=== PATIENT | female | born 1985 | race Two or more races ===

== ENCOUNTER → 2016-07-24 | Outpatient (CLI) | payer BC ==
[2016-07-24 11:05] LABS: Urine RBC None Seen /hpf (0 - 4)
[2016-07-24 11:46] LABS: Urine Bilirubin Negative (Negative); Urine Blood Negative /uL (Negative); Urine Color Yellow (Yellow); Urine Glucose Normal (Normal); Urine Ketone Negative (Negative); Urine Mucus FEW (None Seen); Urine Nitrite Negative (Negative); Urine Squamous Epithelial Cell FEW /hpf (<5); Urine Urobilinogen Normal (Negative); Urine pH 6.5 (5.0-8.0)
== END | disposition home or self-care (01) ==
LOC: LAB 10:52
DX: N39.0 Urinary tract infection, site not specified (principal)
CPT/HCPCS: 81001

== ENCOUNTER → 2016-08-22 | Outpatient (CLI) | payer BC | END | disposition home or self-care (01) | LOC: LAB 13:30 | DX: L50.9 Urticaria, unspecified (principal) | CPT/HCPCS: 86003 ==

== ENCOUNTER → 2016-09-12 | Outpatient (CLI) | payer BC ==
[2016-09-12 12:01] LABS: Basophils # (auto) 0 uL; Basophils % (auto) 0.4 % (0.0-2.0); Eosinophils # (auto) 0 uL; Eosinophils % (auto) 0.4 % (0.0-7.0); Hematocrit 39.3 % (36.0-46.0); Hemoglobin 13.4 g/dL (12.2-16.2); Lymphocytes % (auto) 30.5 % (10.0-50.0); Mean Corpuscular Hemoglobin 31.8 pg (28.0-32.0); Mean Corpuscular Volume 93.4 fL (80.0-100.0); Mean Platelet Volume 8.1 fL (7.4-10.4); Monocytes # (auto) 0.4 uL; Monocytes % (auto) 5.6 % (0.0-12.0); Neutrophils # (auto) 4.2 uL; Neutrophils % (auto) 63.1 % (37.0-80.0); Platelet Count (auto) 263 10^3/uL (140-450); Red Cell Distribution Width 13.2 % (11.6-16.0); White Blood Cell 6.6 10^3/uL (4.4-10.8)
[2016-09-12 12:21] LABS: Albumin 3.7 g/dL (3.4-5.0); BUN/Creatinine Ratio 19.4; Bilirubin, Total 0.3 mg/dL (0.2-1.0); Calcium 9.1 mg/dL (8.5-10.1); Magnesium 2.2 mg/dL (1.6-2.6); Potassium 4.1 mmol/L (3.5-5.1); Total Protein 7.6 g/dL (6.4-8.2)
[2016-09-12 12:28] LABS: Urine Bilirubin Negative (Negative); Urine Color Yellow (Yellow); Urine Glucose Normal (Normal); Urine Ketone Negative (Negative); Urine Mucus FEW (None Seen); Urine Nitrite Negative (Negative); Urine RBC 6 /hpf (0 - 4); Urine Squamous Epithelial Cell MOD /hpf (<5)
[2016-09-12 12:38] LABS: Urine Blood 1+ /uL (Negative)
== END | disposition home or self-care (01) ==
LOC: LAB 11:34
DX: R07.9 Chest pain, unspecified (principal)
CPT/HCPCS: 36415; 80053; 80061; 81001; 83735; 84443; 85025; 85652

== ENCOUNTER → 2016-10-02 | Outpatient (CLI) | payer BC | END | disposition home or self-care (01) | LOC: XYW 08:21 | PROVIDERS: ATTEND Internal Medicine Cardiovascular Disease | DX: R07.9 Chest pain, unspecified (principal) | CPT/HCPCS: 93306 ==

== ENCOUNTER → 2016-10-16 | Outpatient (CLI) | payer BC | END | disposition home or self-care (01) | LOC: XYW 08:34 | PROVIDERS: ATTEND Internal Medicine Cardiovascular Disease | DX: R07.89 Other chest pain (principal) | CPT/HCPCS: 93017; 93306 ==

== ENCOUNTER 2016-11-17 20:34 | Emergency (ER) | payer BC ==
[~2016-11-17] VITALS: Ht 165.1 cm; Wt 116.1 kg
[2016-11-17 20:51] VITALS: BP 144/88
== END 2016-11-17 23:11 | disposition home or self-care (01) ==
LOC: ER 20:39
DX: J40 Bronchitis, not specified as acute or chronic (principal)
CPT/HCPCS: 71010

== ENCOUNTER 2016-11-24 02:53 | Emergency (ER) | payer BC ==
[~2016-11-24] VITALS: Ht 165.1 cm; Wt 116.1 kg
[2016-11-24 03:51] LABS: Basophils # (auto) 0 uL; Basophils % (auto) 0.4 % (0.0-2.0); CONDITION Y; Eosinophils # (auto) 0.1 uL; Eosinophils % (auto) 1.1 % (0.0-7.0); Hematocrit 40.1 % (36.0-46.0); Hemoglobin 13.6 g/dL (12.2-16.2); Lymphocytes # (auto) 3.1 uL; Lymphocytes % (auto) 26.4 % (10.0-50.0); Mean Corpuscular Hemoglobin 32.4 pg (28.0-32.0); Mean Corpuscular Hgb Conc. 34.1 g/dL (32.0-36.0); Mean Corpuscular Volume 95.1 fL (80.0-100.0); Mean Platelet Volume 8.9 fL (7.4-10.4); Monocytes # (auto) 0.7 uL; Monocytes % (auto) 5.8 % (0.0-12.0); Neutrophils # (auto) 7.7 uL; Neutrophils % (auto) 66.3 % (37.0-80.0); Platelet Count (auto) 284 10^3/uL (140-450); Red Cell Distribution Width 13.9 % (11.6-16.0); White Blood Cell 11.6 10^3/uL (4.4-10.8)
[2016-11-24 03:59] LABS: Urine Bilirubin Negative (Negative); Urine Color Yellow (Yellow); Urine Glucose Normal (Normal); Urine Ketone Negative (Negative); Urine Mucus FEW (None Seen); Urine Nitrite Negative (Negative); Urine RBC 4 /hpf (0 - 4); Urine Squamous Epithelial Cell FEW /hpf (<5); Urine Urobilinogen Normal (Negative)
[2016-11-24 04:01] LABS: Urine Blood 1+ /uL (Negative)
[2016-11-24 04:08] LABS: INR 0.92 (0.9-1.15); Partial Thromboplastin Time 23.3 sec (22.64-33.71)
[2016-11-24 04:16] LABS: Albumin 3.6 g/dL (3.4-5.0); Calcium 8.5 mg/dL (8.5-10.1); Potassium 4.2 mmol/L (3.5-5.1)
[2016-11-24 04:18] LABS: BUN/Creatinine Ratio 18.3
[2016-11-24 04:21] LABS: Bilirubin, Total 0.3 mg/dL (0.2-1.0); Total Protein 7.7 g/dL (6.4-8.2)
[2016-11-24 05:40] VITALS: BP 105/47
== END 2016-11-24 05:43 | disposition home or self-care (01) ==
LOC: ER 02:54
DX: R55 Syncope and collapse (principal); T88.7XXA Unspecified adverse effect of drug or medicament, initial encounter; Y92.89 Other specified places as the place of occurrence of the external cause
CPT/HCPCS: 36415; 71101; 80053; 80307; 81001; 81025; 85025; 85610; 85730

== ENCOUNTER → 2016-12-02 | Outpatient (CLI) | payer BC ==
[2016-12-02 15:02] LABS: Basophils # (auto) 0 uL; Basophils % (auto) 0.6 % (0.0-2.0); CONDITION Y; Eosinophils # (auto) 0.1 uL; Eosinophils % (auto) 1.7 % (0.0-7.0); Hematocrit 37.5 % (36.0-46.0); Hemoglobin 12.7 g/dL (12.2-16.2); Lymphocytes # (auto) 1.8 uL; Mean Corpuscular Hemoglobin 32.1 pg (28.0-32.0); Mean Corpuscular Hgb Conc. 33.9 g/dL (32.0-36.0); Mean Corpuscular Volume 94.7 fL (80.0-100.0); Monocytes # (auto) 0.4 uL; Monocytes % (auto) 7.8 % (0.0-12.0); Neutrophils # (auto) 2.8 uL; Neutrophils % (auto) 54.9 % (37.0-80.0); Platelet Count (auto) 283 10^3/uL (140-450); Red Cell Distribution Width 13.7 % (11.6-16.0); White Blood Cell 5.2 10^3/uL (4.4-10.8)
[2016-12-02 15:25] LABS: Albumin 3.5 g/dL (3.4-5.0); BUN/Creatinine Ratio 21.1; Calcium 8.7 mg/dL (8.5-10.1); Potassium 4.1 mmol/L (3.5-5.1)
[2016-12-02 15:27] LABS: Bilirubin, Total 0.4 mg/dL (0.2-1.0); Total Protein 7.4 g/dL (6.4-8.2)
[2016-12-02 16:36] LABS: Temperature: 23.3 C (20.0-25.0)
[2016-12-02 17:04] LABS: Urine Bilirubin Negative (Negative); Urine Blood Negative /uL (Negative); Urine Color Yellow (Yellow); Urine Glucose Normal (Normal); Urine Ketone TRACE (Negative); Urine Mucus FEW (None Seen); Urine Nitrite Negative (Negative); Urine RBC 2 /hpf (0 - 4); Urine Squamous Epithelial Cell FEW /hpf (<5); Urine Urobilinogen Normal (Negative); Urine pH 6.5 (5.0-8.0)
== END | disposition home or self-care (01) ==
LOC: LAB 14:17
PROVIDERS: ATTEND Nurse Practitioner
DX: E78.5 Hyperlipidemia, unspecified (principal); F10.21 Alcohol dependence, in remission
CPT/HCPCS: 36415; 80053; 80061; 81001; 82306; 82607; 82728; 82746; 83036; 84443; 85025

== ENCOUNTER → 2017-05-15 | Outpatient (CLI) | payer BC ==
[2017-05-15 08:53] LABS: Leuteinizing Hormone 4.3 IU/L; Prolactin 34.3 ng/mL (2.8-29.2)
[2017-05-15 08:54] LABS: Follicle Stimulating Hormone 0.93 IU/L (SEE BELOW)
[2017-05-15 09:00] LABS: Beta HCG, Quantitative < 1 mlU/mL (1-3); Thyroid Stimulating Hormone 5.93 uIU/mL (0.358-3.74)
== END | disposition home or self-care (01) ==
LOC: LAB 07:06
DX: N92.6 Irregular menstruation, unspecified (principal)
CPT/HCPCS: 36415; 82626; 82670; 83001; 83002; 83525; 84146; 84443; 84702

== ENCOUNTER → 2018-06-25 | Outpatient (CLI) | payer BC, MEDICAID ==
[2018-06-25 15:02] LABS: Albumin 3.8 g/dL (3.4-5.0); Calcium 9.1 mg/dL (8.5-10.1); Potassium 4.2 mmol/L (3.5-5.1)
[2018-06-25 15:08] LABS: Urine Bacteria FEW /hpf (None Seen); Urine Blood 1+ /uL (Negative); Urine Mucus FEW (None Seen); Urine WBC 1 /hpf (0 - 5)
[2018-06-25 15:09] LABS: Folate (Folic Acid) 19.16 ng/mL (5.38-24)
[2018-06-25 15:12] LABS: BUN/Creatinine Ratio 15.8; Bilirubin, Total 0.4 mg/dL (0.2-1.0); CRP High Sensitivity 1.04 mg/dL (< 0.3); Total Protein 7.9 g/dL (6.4-8.2); Uric Acid 4.6 mg/dL (2.6-6.0)
[2018-06-25 17:58] LABS: Basophils # (auto) 0 uL; Basophils % (auto) 0.5 % (0.0-2.0); Eosinophils # (auto) 0.1 uL; Eosinophils % (auto) 0.8 % (0.0-7.0); Hemoglobin 13.7 g/dL (12.2-16.2); Lymphocytes # (auto) 2.6 uL; Lymphocytes % (auto) 35.2 % (10.0-50.0); Mean Corpuscular Hemoglobin 31.9 pg (28.0-32.0); Mean Corpuscular Hgb Conc. 33.5 g/dL (32.0-36.0); Mean Corpuscular Volume 95.4 fL (80.0-100.0); Monocytes # (auto) 0.5 uL; Monocytes % (auto) 6.9 % (0.0-12.0); Neutrophils # (auto) 4.2 uL; Neutrophils % (auto) 56.6 % (37.0-80.0); Platelet Count (auto) 213 10^3/uL (140-450); Red Cell Distribution Width 13.5 % (11.8-14.3); White Blood Cell 7.4 10^3/uL (4.4-10.8)
== END | disposition home or self-care (01) ==
LOC: LAB 14:24
PROVIDERS: ATTEND Nurse Practitioner
DX: E78.5 Hyperlipidemia, unspecified (principal); E55.9 Vitamin D deficiency, unspecified
CPT/HCPCS: 36415; 80053; 80061; 81001; 82306; 82607; 82746; 83036; 84443; 84550; 85025; 85652; 86141

== ENCOUNTER → 2018-09-29 | Outpatient (CLI) | payer BC, MEDICAID ==
[2018-09-29 08:38] LABS: Albumin 3.6 g/dL (3.4-5.0); Calcium 8.9 mg/dL (8.5-10.1)
[2018-09-29 08:43] LABS: BUN/Creatinine Ratio 21.1; Bilirubin, Total 0.5 mg/dL (0.2-1.0); Total Protein 7.3 g/dL (6.4-8.2)
[2018-09-29 08:45] LABS: Basophils # (auto) 0 uL; Basophils % (auto) 0.4 % (0.0-2.0); Eosinophils # (auto) 0.1 uL; Eosinophils % (auto) 1.2 % (0.0-7.0); Hematocrit 40.9 % (36.0-46.0); Hemoglobin 13.6 g/dL (12.2-16.2); Lymphocytes # (auto) 2.8 uL; Lymphocytes % (auto) 43.6 % (10.0-50.0); Mean Corpuscular Hemoglobin 31.7 pg (28.0-32.0); Mean Corpuscular Hgb Conc. 33.3 g/dL (32.0-36.0); Mean Corpuscular Volume 95.2 fL (80.0-100.0); Monocytes # (auto) 0.5 uL; Monocytes % (auto) 7.2 % (0.0-12.0); Neutrophils % (auto) 47.6 % (37.0-80.0); Nucleated Red Blood Cells % 0.1 %; Platelet Count (auto) 213 10^3/uL (140-450); Red Cell Distribution Width 13.2 % (11.8-14.3); White Blood Cell 6.4 10^3/uL (4.4-10.8)
[2018-09-29 10:05] LABS: Urine Bacteria NONE SEEN /hpf (None Seen); Urine Blood 1+ /uL (Negative); Urine Mucus FEW (None Seen); Urine WBC 3 /hpf (0 - 5)
== END | disposition home or self-care (01) ==
LOC: LAB 07:14
PROVIDERS: ATTEND Nurse Practitioner
DX: E78.5 Hyperlipidemia, unspecified (principal); E11.9 Type 2 diabetes mellitus without complications
CPT/HCPCS: 36415; 80053; 80061; 81001; 82043; 83036; 85025

== ENCOUNTER → 2019-02-03 | Outpatient (CLI) | payer BC, MEDICAID ==
[2019-02-03 07:46] LABS: Basophils # (auto) 0.1 uL; Basophils % (auto) 0.8 % (0.0-2.0); Eosinophils # (auto) 0.1 uL; Eosinophils % (auto) 0.9 % (0.0-7.0); Hematocrit 40.2 % (36.0-46.0); Hemoglobin 13.6 g/dL (12.2-16.2); Lymphocytes # (auto) 2.9 uL; Lymphocytes % (auto) 40.8 % (10.0-50.0); Mean Corpuscular Hemoglobin 32.2 pg (28.0-32.0); Mean Corpuscular Hgb Conc. 33.7 g/dL (32.0-36.0); Mean Corpuscular Volume 95.6 fL (80.0-100.0); Monocytes # (auto) 0.5 uL; Monocytes % (auto) 6.7 % (0.0-12.0); Neutrophils # (auto) 3.6 uL; Neutrophils % (auto) 50.8 % (37.0-80.0); Nucleated Red Blood Cells % 0.1 %; Platelet Count (auto) 222 10^3/uL (140-450); Red Cell Distribution Width 13.4 % (11.8-14.3)
[2019-02-03 08:34] LABS: Albumin 3.4 g/dL (3.4-5.0); Calcium 8.7 mg/dL (8.5-10.1); Potassium 4.4 mmol/L (3.5-5.1)
[2019-02-03 08:39] LABS: BUN/Creatinine Ratio 23.9; Bilirubin, Total 0.3 mg/dL (0.2-1.0); Total Protein 7.3 g/dL (6.4-8.2)
[2019-02-03 14:43] LABS: Urine Bacteria FEW /hpf (None Seen); Urine Blood Negative /uL (Negative); Urine Mucus FEW (None Seen); Urine Specific Gravity 1.025 (1.001-1.035); Urine WBC 1 /hpf (0 - 5)
== END | disposition home or self-care (01) ==
LOC: LAB 07:26
PROVIDERS: ATTEND Nurse Practitioner
DX: E78.5 Hyperlipidemia, unspecified (principal); E73.9 Lactose intolerance, unspecified
CPT/HCPCS: 36415; 80053; 80061; 81001; 83036; 84443; 85025

== ENCOUNTER → 2019-08-08 | Outpatient (CLI) | payer BC ==
[2019-08-08 13:00] LABS: BUN/Creatinine Ratio 15.7; Calcium 9.2 mg/dL (8.5-10.1)
== END | disposition home or self-care (01) ==
LOC: LAB 12:22
PROVIDERS: ATTEND Internal Medicine
DX: Z01.812 Encounter for preprocedural laboratory examination (principal)
CPT/HCPCS: 36415; 80048

== ENCOUNTER → 2019-08-16 | Outpatient (CLI) | payer BC, MEDICAID | END | disposition home or self-care (01) | LOC: LAB 16:01 | PROVIDERS: ATTEND Nurse Practitioner Family | DX: Z03.818 Encounter for observation for suspected exposure to other biological agents ruled out (principal) | CPT/HCPCS: C9803; U0003 ==

== ENCOUNTER → 2019-11-16 | Outpatient (CLI) | payer BC, MEDICAID | END | disposition home or self-care (01) | LOC: LAB 07:02 | PROVIDERS: ATTEND Nurse Practitioner | DX: Z03.818 Encounter for observation for suspected exposure to other biological agents ruled out (principal) ==

== ENCOUNTER → 2019-11-25 | Outpatient (CLI) | payer BC, MEDICAID ==
[2019-11-25 16:00] LABS: Albumin 3.6 g/dL (3.4-5.0); Potassium 3.5 mmol/L (3.5-5.1)
[2019-11-25 16:03] LABS: BUN/Creatinine Ratio 14.1; Bilirubin, Total 0.3 mg/dL (0.2-1.0); Total Protein 7.3 g/dL (6.4-8.2)
== END | disposition home or self-care (01) ==
LOC: LAB 15:14
PROVIDERS: ATTEND Nurse Practitioner
DX: N64.4 Mastodynia (principal); R21 Rash and other nonspecific skin eruption
CPT/HCPCS: 36415; 80053; 84702; 86038

== ENCOUNTER 2019-12-15 17:39 | Emergency (ER) | payer BC, MEDICAID ==
[~2019-12-15] VITALS: Ht 165.1 cm; Wt 115.7 kg
[2019-12-15 18:46] LABS: Urine Bacteria MANY /hpf (None Seen); Urine Blood 1+ /uL (Negative); Urine Mucus MODERATE (None Seen); Urine WBC 8 /hpf (0 - 5)
[2019-12-15 19:03] LABS: Alcohol, Urine < 3.0 mg/dL (0-10); Amphetamine Screen, Urine NEGATIVE (NEGATIVE); Barbiturate Scree,Urine NEGATIVE (NEGATIVE); Benzodiazephine Screen, Urine NEGATIVE (NEGATIVE); Cannabinoid Screen, Urine NEGATIVE (NEGATIVE); Cocaine Screen, Urine NEGATIVE (NEGATIVE); Opiate Scree,Urine NEGATIVE (NEGATIVE); Phencyclidine Screen, Urine NEGATIVE (NEGATIVE)
[2019-12-15] MEDS ORDERED: SODIUM CHLORIDE 0.9% 1,000 ML IV ONE (19:15)
[2019-12-15] MEDS ORDERED: cefTRIAXone 1GM/50ML D5W 50 ML IV ONE (19:15)
[2019-12-15 19:16] LABS: Basophils # (auto) 0 10 ^3/uL (0-0.2); Basophils % (auto) 0.6 % (0.0-2.0); Eosinophils # (auto) 0.1 10 ^3/uL (0-0.8); Eosinophils % (auto) 1.2 % (0.0-7.0); Hematocrit 42.2 % (36.0-46.0); Lymphocytes # (auto) 3.1 10 ^3/uL (0.4-5.4); Lymphocytes % (auto) 35.9 % (10.0-50.0); Mean Corpuscular Hemoglobin 31.8 pg (28.0-32.0); Mean Corpuscular Hgb Conc. 33.2 g/dL (32.0-36.0); Mean Corpuscular Volume 95.9 fL (80.0-100.0); Monocytes # (auto) 0.7 10 ^3/uL (0-1.3); Monocytes % (auto) 7.7 % (0.0-12.0); Neutrophils # (auto) 4.7 10 ^3/uL (1.6-8.6); Neutrophils % (auto) 54.6 % (37.0-80.0); Nucleated Red Blood Cells % 0.1 %; Platelet Count (auto) 267 10^3/uL (140-450); Red Cell Distribution Width 13.7 % (11.8-14.3); White Blood Cell 8.6 10^3/uL (4.4-10.8)
[2019-12-15 19:29] LABS: Anion Gap 3 (5-15); Blood Urea Nitrogen 17 mg/dL (7-18); Calcium 8.6 mg/dL (8.5-10.1); Carbon Dioxide 28 mmol/L (21-32); Chloride 104 mmol/L (98-107); Glucose 94 mg/dL (74-106); Potassium 3.7 mmol/L (3.5-5.1); Sodium 135 mmol/L (136-145)
[2019-12-15 19:30] LABS: INR 0.93 (0.9-1.15); Partial Thromboplastin Time 24.8 sec (23.0-31.2)
[2019-12-15 19:36] LABS: Alanine Aminotransferase 86 U/L (13-56); Alkaline Phosphatase 105 U/L (45-117); Aspartate Aminotransferase 40 U/L (15-37); BUN/Creatinine Ratio 19.8; Bilirubin, Total 0.2 mg/dL (0.2-1.0); GFR African American 97 mL/min; GFR Non-African American 80 mL/min; Total Protein 7.9 g/dL (6.4-8.2)
[2019-12-15] MEDS ORDERED: ACETAMINOPHEN 325 MG TAB PO ONE (19:45)
[2019-12-15 21:53] VITALS: BP 132/71
== END 2019-12-15 21:54 | disposition home or self-care (01) ==
LOC: ER 17:39
DX: E86.0 Dehydration (principal); F41.0 Panic disorder [episodic paroxysmal anxiety]; N39.0 Urinary tract infection, site not specified; R74.8 Abnormal levels of other serum enzymes; E27.8 Other specified disorders of adrenal gland; H66.91 Otitis media, unspecified, right ear
CPT/HCPCS: 36415; 70450; 71046; 74176; 80053; 80307; 81001; 82962; 83880; 84443; 84484; 85025; 85610; 85730; 93005; 96365; 99285; J0696

== ENCOUNTER → 2020-03-07 | Outpatient (CLI) | payer OTHER | END | disposition home or self-care (01) | LOC: LAB 12:49 | PROVIDERS: ATTEND Nurse Practitioner Family | DX: U07.1 COVID-19 (principal) | CPT/HCPCS: C9803; U0003 ==

== ENCOUNTER → 2020-03-30 | Outpatient (CLI) | payer OTHER | END | disposition home or self-care (01) | LOC: LAB 16:44 | PROVIDERS: ATTEND Nurse Practitioner Family | DX: Z20.828 Contact with and (suspected) exposure to other viral communicable diseases (principal) | CPT/HCPCS: C9803; U0003 ==

== ENCOUNTER → 2020-04-11 | Outpatient (CLI) | payer BC | END | disposition home or self-care (01) | LOC: LAB 09:33 | PROVIDERS: ATTEND Internal Medicine | DX: Z01.812 Encounter for preprocedural laboratory examination (principal) | CPT/HCPCS: 36415; 82565; 84520 ==

== ENCOUNTER → 2020-04-17 | Outpatient (CLI) | payer BC ==
[2020-04-17 15:26] LABS: Basophils # (auto) 0 10 ^3/uL (0-0.2); Basophils % (auto) 0.6 % (0.0-2.0); Eosinophils # (auto) 0.1 10 ^3/uL (0-0.8); Eosinophils % (auto) 1.1 % (0.0-7.0); Hematocrit 40.1 % (36.0-46.0); Hemoglobin 13.9 g/dL (12.2-16.2); Lymphocytes # (auto) 2.4 10 ^3/uL (0.4-5.4); Lymphocytes % (auto) 38.6 % (10.0-50.0); Mean Corpuscular Hemoglobin 32.5 pg (28.0-32.0); Mean Corpuscular Hgb Conc. 34.6 g/dL (32.0-36.0); Monocytes # (auto) 0.5 10 ^3/uL (0-1.3); Monocytes % (auto) 7.2 % (0.0-12.0); Neutrophils # (auto) 3.3 10 ^3/uL (1.6-8.6); Neutrophils % (auto) 52.5 % (37.0-80.0); Nucleated Red Blood Cells % 0.1 %; Platelet Count (auto) 242 10^3/uL (140-450); Red Blood Cells 4.27 10^6/uL (4.0-5.20); Red Cell Distribution Width 13.6 % (11.8-14.3); White Blood Cell 6.3 10^3/uL (4.4-10.8)
[2020-04-17 15:34] LABS: Aspartate Aminotransferase 35 U/L (15-37)
[2020-04-17 15:36] LABS: INR 0.97 (0.9-1.15)
[2020-04-17 15:42] LABS: Alanine Aminotransferase 67 U/L (13-56); Cholesterol 250 mg/dL (< 200); HDL Cholesterol 57 mg/dL (40-59); LDL Cholesterol 163 mg/dL (< 100); Triglycerides 145 mg/dL (< 150)
== END | disposition home or self-care (01) ==
LOC: LAB 14:55
PROVIDERS: ATTEND Internal Medicine
DX: K76.0 Fatty (change of) liver, not elsewhere classified (principal); E27.8 Other specified disorders of adrenal gland
CPT/HCPCS: 36415; 80061; 82384; 84450; 84460; 85025; 85610; 85652

== ENCOUNTER → 2020-04-23 | Outpatient (CLI) | payer BC, MEDICAID | END | disposition home or self-care (01) | LOC: LAB 08:49 | PROVIDERS: ATTEND Internal Medicine | DX: R05 Cough (principal); Z86.19 Personal history of other infectious and parasitic diseases | CPT/HCPCS: 36415; 82565; 82728; 83615; 84520 ==

== ENCOUNTER → 2020-11-23 | Outpatient (CLI) | payer BC ==
[2020-11-23 13:13] LABS: Urine WBC None Seen /hpf (0 - 5)
[2020-11-23 13:16] LABS: Basophils # (auto) 0 10 ^3/uL (0-0.2); Basophils % (auto) 0.7 % (0.0-2.0); Eosinophils # (auto) 0.1 10 ^3/uL (0-0.8); Eosinophils % (auto) 0.8 % (0.0-7.0); Hematocrit 38.6 % (36.0-46.0); Hemoglobin 13.3 g/dL (12.2-16.2); Lymphocytes # (auto) 2.9 10 ^3/uL (0.4-5.4); Lymphocytes % (auto) 39.9 % (10.0-50.0); Mean Corpuscular Hemoglobin 32.2 pg (28.0-32.0); Mean Corpuscular Hgb Conc. 34.4 g/dL (32.0-36.0); Mean Corpuscular Volume 93.6 fL (80.0-100.0); Monocytes # (auto) 0.5 10 ^3/uL (0-1.3); Neutrophils # (auto) 3.8 10 ^3/uL (1.6-8.6); Neutrophils % (auto) 51.6 % (37.0-80.0); Red Blood Cells 4.12 10^6/uL (4.0-5.20); Red Cell Distribution Width 13.4 % (11.8-14.3); White Blood Cell 7.4 10^3/uL (4.4-10.8)
[2020-11-23 13:18] LABS: Urine Bacteria MOD /hpf (None Seen); Urine Blood Negative /uL (Negative); Urine Mucus FEW (None Seen); Urine Specific Gravity 1.024 (1.001-1.035)
[2020-11-23 13:42] LABS: Albumin 3.7 g/dL (3.4-5.0); Potassium 3.9 mmol/L (3.5-5.1)
[2020-11-23 13:46] LABS: BUN/Creatinine Ratio 18.2; Bilirubin, Total 0.4 mg/dL (0.2-1.0); Total Protein 7.7 g/dL (6.4-8.2)
== END | disposition home or self-care (01) ==
LOC: LAB 13:03
PROVIDERS: ATTEND Nurse Practitioner
DX: I10 Essential (primary) hypertension (principal); E78.5 Hyperlipidemia, unspecified
CPT/HCPCS: 36415; 80053; 80061; 81001; 84443; 85025

== ENCOUNTER 2021-01-31 05:16 | Emergency (ER) | payer BC, MEDICAID ==
[~2021-01-31] VITALS: Ht 165.1 cm; Wt 121.6 kg
[2021-01-31 06:41] LABS: Urine Bacteria NONE SEEN /hpf (None Seen); Urine Blood TRACE /uL (Negative); Urine Specific Gravity 1.021 (1.001-1.035); Urine WBC 7 /hpf (0 - 5)
[2021-01-31 06:55] LABS: BUN/Creatinine Ratio 19.8; Calcium 8.5 mg/dL (8.5-10.1); Potassium 4.5 mmol/L (3.5-5.1)
[2021-01-31 06:58] LABS: Basophils # (auto) 0 10 ^3/uL (0-0.2); Basophils % (auto) 0.5 % (0.0-2.0); Bilirubin, Total 0.2 mg/dL (0.2-1.0); Eosinophils # (auto) 0.1 10 ^3/uL (0-0.8); Eosinophils % (auto) 0.8 % (0.0-7.0); Hematocrit 38.9 % (36.0-46.0); Lymphocytes # (auto) 2.3 10 ^3/uL (0.4-5.4); Lymphocytes % (auto) 26.3 % (10.0-50.0); Mean Corpuscular Hemoglobin 32.1 pg (28.0-32.0); Mean Corpuscular Hgb Conc. 33.5 g/dL (32.0-36.0); Monocytes # (auto) 0.8 10 ^3/uL (0-1.3); Monocytes % (auto) 8.9 % (0.0-12.0); Neutrophils # (auto) 5.5 10 ^3/uL (1.6-8.6); Neutrophils % (auto) 63.5 % (37.0-80.0); Red Blood Cells 4.05 10^6/uL (4.0-5.20); Red Cell Distribution Width 13.3 % (11.8-14.3); Total Protein 7.1 g/dL (6.4-8.2); White Blood Cell 8.7 10^3/uL (4.4-10.8)
[2021-01-31] MEDS ORDERED: ONDANSETRON HCL 4 MG/2 ML VIAL IV ONE (07:15)
[2021-01-31] MEDS ORDERED: HYDROmorphone HCL 2 MG/ML VL IV ONE (07:15)
[2021-01-31] MEDS ORDERED: SODIUM CHLORIDE 0.9% 1,000 ML IV ONE (07:15)
[2021-01-31] MEDS ORDERED: PERCOT PO ×2 (11:39→12:48)
[2021-01-31] MEDS ORDERED: NITR-87 PO ×2 (11:39→12:48)
[2021-01-31 12:39] VITALS: BP 129/54
[2021-01-31] MEDS ORDERED: HYDROcodone-ACET 5/325MG TAB PO ONE (13:15)
== END 2021-01-31 13:46 | disposition home or self-care (01) ==
LOC: ER 05:16 → EEVIPCON 05:16 → ER 13:46
DX: K80.10 Calculus of gallbladder with chronic cholecystitis without obstruction (principal); N39.0 Urinary tract infection, site not specified
CPT/HCPCS: 36415; 74176; 80053; 81001; 81025; 85025; 96360; 99284; J7030

== ENCOUNTER → 2021-03-18 | Outpatient (CLI) | payer BC, MEDICAID ==
[~2021-03-18] MED LIST: NITR-87 PO; PERCOT PO
== END | disposition home or self-care (01) ==
LOC: LAB 13:54
PROVIDERS: ATTEND Nurse Practitioner
DX: Z32.00 Encounter for pregnancy test, result unknown (principal)
CPT/HCPCS: 36415; 81025; 84702

== ENCOUNTER 2021-06-04 17:48 | Emergency (ER) | payer BC, MEDICAID ==
[~2021-06-04] VITALS: Ht 165.1 cm; Wt 95.3 kg
[2021-06-04] MEDS ORDERED: KETOROLAC TROMETH 60MG/2ML VIAL IM ONE (18:30)
[2021-06-04 19:27] LABS: Urine Bacteria NONE SEEN /hpf (None Seen); Urine Blood 1+ /uL (Negative); Urine Mucus FEW (None Seen); Urine Specific Gravity 1.029 (1.001-1.035); Urine WBC 2 /hpf (0 - 5)
[2021-06-04] MEDS ORDERED: TIZA2CAP12 PO (19:53)
[2021-06-04 20:32] VITALS: BP 98/70
== END 2021-06-04 21:39 | disposition home or self-care (01) ==
LOC: ER 17:48
DX: S33.5XXA Sprain of ligaments of lumbar spine, initial encounter (principal); Z20.822 Contact with and (suspected) exposure to COVID-19; X58.XXXA Exposure to other specified factors, initial encounter; Y93.89 Activity, other specified; Y92.89 Other specified places as the place of occurrence of the external cause; Y99.8 Other external cause status
CPT/HCPCS: 81001; 81025; 87086; 87491; 87591; 96372; 99283; C9803; J1885; U0003

== ENCOUNTER → 2021-06-07 | Outpatient (CLI) | payer BC, MEDICAID ==
[~2021-06-07] MED LIST changes: +TIZA2CAP12 PO
[2021-06-07 11:01] LABS: Bilirubin, Direct 0.1 mg/dL (0-0.2); Bilirubin, Total 0.3 mg/dL (0.2-1.0)
[2021-06-07 11:17] LABS: Basophils # (auto) 0 10 ^3/uL (0-0.2); Basophils % (auto) 0.3 % (0.0-2.0); Eosinophils # (auto) 0.1 10 ^3/uL (0-0.8); Eosinophils % (auto) 1.6 % (0.0-7.0); Hematocrit 37.5 % (36.0-46.0); Hemoglobin 12.9 g/dL (12.2-16.2); Lymphocytes # (auto) 1.9 10 ^3/uL (0.4-5.4); Lymphocytes % (auto) 36.2 % (10.0-50.0); Mean Corpuscular Hemoglobin 32.2 pg (28.0-32.0); Mean Corpuscular Hgb Conc. 34.4 g/dL (32.0-36.0); Mean Corpuscular Volume 93.7 fL (80.0-100.0); Monocytes # (auto) 0.5 10 ^3/uL (0-1.3); Neutrophils # (auto) 2.8 10 ^3/uL (1.6-8.6); Neutrophils % (auto) 51.9 % (37.0-80.0); Nucleated Red Blood Cells % 0.1 %; White Blood Cell 5.3 10^3/uL (4.4-10.8)
== END | disposition home or self-care (01) ==
LOC: LAB 07:37
PROVIDERS: ATTEND Surgery
DX: K80.20 Calculus of gallbladder without cholecystitis without obstruction (principal); R10.11 Right upper quadrant pain
CPT/HCPCS: 36415; 82150; 82247; 82248; 83690; 85025

== ENCOUNTER 2021-06-12 06:47 | Inpatient (IN) | payer BC, MEDICAID ==
[2021-06-11 07:54] LABS: Urine Bacteria NONE SEEN /hpf (None Seen); Urine Blood TRACE /uL (Negative); Urine Mucus FEW (None Seen); Urine Specific Gravity 1.022 (1.001-1.035); Urine WBC 5 /hpf (0 - 5)
[2021-06-11 08:01] LABS: INR 0.94 (0.9-1.15); Partial Thromboplastin Time 23.5 sec (23.6-33.0)
[2021-06-11 11:37] LABS: Basophils # (auto) 0 10 ^3/uL (0-0.2); Basophils % (auto) 0.5 % (0.0-2.0); Eosinophils # (auto) 0.1 10 ^3/uL (0-0.8); Eosinophils % (auto) 1.4 % (0.0-7.0); Hematocrit 38.5 % (36.0-46.0); Lymphocytes # (auto) 2.9 10 ^3/uL (0.4-5.4); Lymphocytes % (auto) 40.4 % (10.0-50.0); Mean Corpuscular Hemoglobin 32.2 pg (28.0-32.0); Mean Corpuscular Hgb Conc. 33.8 g/dL (32.0-36.0); Mean Corpuscular Volume 95.1 fL (80.0-100.0); Monocytes # (auto) 0.5 10 ^3/uL (0-1.3); Monocytes % (auto) 7.1 % (0.0-12.0); Neutrophils # (auto) 3.7 10 ^3/uL (1.6-8.6); Neutrophils % (auto) 50.6 % (37.0-80.0); Nucleated Red Blood Cells % 0.1 %; Red Blood Cells 4.05 10^6/uL (4.0-5.20); Red Cell Distribution Width 13.5 % (11.8-14.3); White Blood Cell 7.2 10^3/uL (4.4-10.8)
[2021-06-11 12:29] LABS: Potassium 4.3 mmol/L (3.5-5.1)
[2021-06-11 12:39] LABS: Albumin 3.3 g/dL (3.4-5.0); BUN/Creatinine Ratio 21.6; Bilirubin, Total 0.4 mg/dL (0.2-1.0); Calcium 8.6 mg/dL (8.5-10.1)
[~2021-06-12] VITALS: Ht 317.5 cm; Wt 123.5 kg
[2021-06-12] MEDS ORDERED: LIDOCAINE 1% HCL (LOCAL ANESTH.) INJ 20ML MDV ONE (08:18)
[2021-06-12] MEDS ORDERED: BUPIVACAINE W/ EPINEPH 0.25% INJ 50ML MDV ONE (08:18)
[2021-06-12] MEDS ORDERED: DexAMETHasone SOD PHOS 10MG/1ML VIAL INJ ONE (08:20)
[2021-06-12] MEDS ORDERED: fentaNYL CITRATE 100 MCG/2 ML VL ONE (08:20)
[2021-06-12] MEDS ORDERED: NEOSTIGMINE 1 MG/ML INJ (10mg/10ML VIAL) ONE (08:20)
[2021-06-12] MEDS ORDERED: GLYCOPYRROLATE 0.2 MG/ML 1ML VIAL ONE (08:20)
[2021-06-12] MEDS ORDERED: ONDANSETRON HCL 4 MG/2 ML VIAL ONE (08:20)
[2021-06-12] MEDS ORDERED: SODIUM CHLORIDE LOCK 10 ML ONE (08:20)
[2021-06-12] MEDS ORDERED: MIDAZOLAM HCL 2MG/2ML 2ml VIAL (1mg/ml) ONE (08:20)
[2021-06-12] MEDS ORDERED: ROCURONIUM 10MG/ML 10ML VIAL IV ONE (08:20)
[2021-06-12] MEDS ORDERED: PROPOFOL 10 MG/ML 20 ML IV ONE (08:20)
[2021-06-12] MEDS ORDERED: ceFAZolin 1GM/50ML 100 ML IV ONE (09:20)
[2021-06-12] MEDS ORDERED: MORPHINE SULFATE 4 MG/ML SYR/VIAL IV PRN (09:45)
[2021-06-12] MEDS ORDERED: METOCLOPRAMIDE HCL 5MG/ml INJ 2ml VIAL IV PRN (09:45)
[2021-06-12] MEDS: HYDROmorphone HCL 2 MG/ML VL IV PRN ×3 (10:45→11:15)
[2021-06-12] MEDS ORDERED: NITROGLYCERIN 0.4 MG SL TAB SL PRN (12:15)
[2021-06-12 12:41] VITALS: BP 95/41
[2021-06-12 13:00] VITALS: BP 95/41
[2021-06-12 13:29] VITALS: BP 95/41
[2021-06-12] MEDS: D5W/SOD CHL 0.45%/KCL 20MEQ 1,000 ML IV SCH ×2 (14:07→22:00)
[2021-06-12 16:13] VITALS: BP 101/42
[2021-06-12 17:00] VITALS: BP 111/45
[2021-06-12] MEDS: MORPHINE SULFATE 4 MG/ML SYR/VIAL IV PRN ×2 (17:21→18:07)
[2021-06-12] MEDS: MORPHINE SULFATE INJECTION 2 MG/ML SYRG IV PRN ×2 (19:59→21:56)
[2021-06-12] MEDS: ONDANSETRON HCL 4 MG/2 ML VIAL IV PRN (20:01)
[2021-06-12 23:02] VITALS: BP 100/53
[2021-06-13] MEDS: ONDANSETRON HCL 4 MG/2 ML VIAL IV PRN ×2 (01:56→22:54)
[2021-06-13 05:54] VITALS: BP 97/46
[2021-06-13 05:54] LABS: Basophils # (auto) 0 10 ^3/uL (0-0.2); Basophils % (auto) 0.3 % (0.0-2.0); Eosinophils # (auto) 0 10 ^3/uL (0-0.8); Hematocrit 36.5 % (36.0-46.0); Hemoglobin 12.8 g/dL (12.2-16.2); Lymphocytes # (auto) 1.8 10 ^3/uL (0.4-5.4); Lymphocytes % (auto) 14.4 % (10.0-50.0); Mean Corpuscular Hemoglobin 32.5 pg (28.0-32.0); Mean Corpuscular Hgb Conc. 35.1 g/dL (32.0-36.0); Mean Corpuscular Volume 92.7 fL (80.0-100.0); Monocytes # (auto) 0.7 10 ^3/uL (0-1.3); Monocytes % (auto) 5.8 % (0.0-12.0); Neutrophils % (auto) 79.5 % (37.0-80.0); Red Blood Cells 3.94 10^6/uL (4.0-5.20); Red Cell Distribution Width 12.9 % (11.8-14.3); White Blood Cell 12.6 10^3/uL (4.4-10.8)
[2021-06-13 06:06] LABS: Potassium 4.4 mmol/L (3.5-5.1)
[2021-06-13 06:13] LABS: Albumin 3.3 g/dL (3.4-5.0); BUN/Creatinine Ratio 14.1; Bilirubin, Total 0.3 mg/dL (0.2-1.0)
[2021-06-13 08:56] VITALS: BP 114/56
[2021-06-13] MEDS: cefTRIAXone 1GM/50ML D5W 50 ML IV SCH ×2 (09:00→11:35)
[2021-06-13] MEDS: ENOXAPARIN SOD 40 MG/0.4 ML SYRINGE SC SCH (10:00)
[2021-06-13] MEDS: PANTOPRAZOLE 40 MG/10 ML VIAL INJ IV SCH (10:00)
[2021-06-13] MEDS: D5W/SOD CHL 0.45%/KCL 20MEQ 1,000 ML IV SCH (11:30)
[2021-06-13 13:00] VITALS: BP 104/61
[2021-06-13] MEDS: MORPHINE SULFATE 4 MG/ML SYR/VIAL IV PRN (13:05)
[2021-06-13] MEDS: D5W/SOD CHL 0.45% 1,000 ML IV SCH (14:30)
[2021-06-13 17:00] VITALS: BP 90/45
[2021-06-13 22:00] VITALS: BP 104/48
[2021-06-13] MEDS: MORPHINE SULFATE INJECTION 2 MG/ML SYRG IV PRN (22:52)
[2021-06-14] MEDS: D5W/SOD CHL 0.45% 1,000 ML IV SCH (00:30)
[2021-06-14 05:00] VITALS: BP 97/50
[2021-06-14 07:18] LABS: Calcium 8.4 mg/dL (8.5-10.1); Magnesium 2.2 mg/dL (1.6-2.6); Potassium 4.1 mmol/L (3.5-5.1)
[2021-06-14 07:19] LABS: Basophils # (auto) 0 10 ^3/uL (0-0.2); Basophils % (auto) 0.5 % (0.0-2.0); Eosinophils # (auto) 0.1 10 ^3/uL (0-0.8); Eosinophils % (auto) 0.7 % (0.0-7.0); Hematocrit 33.6 % (36.0-46.0); Hemoglobin 11.5 g/dL (12.2-16.2); Lymphocytes # (auto) 3.1 10 ^3/uL (0.4-5.4); Lymphocytes % (auto) 38.2 % (10.0-50.0); Mean Corpuscular Hemoglobin 32.1 pg (28.0-32.0); Mean Corpuscular Hgb Conc. 34.3 g/dL (32.0-36.0); Mean Corpuscular Volume 93.4 fL (80.0-100.0); Monocytes # (auto) 0.6 10 ^3/uL (0-1.3); Monocytes % (auto) 7.7 % (0.0-12.0); Neutrophils # (auto) 4.4 10 ^3/uL (1.6-8.6); Neutrophils % (auto) 52.9 % (37.0-80.0); Nucleated Red Blood Cells % 0.1 %; Red Cell Distribution Width 12.9 % (11.8-14.3); White Blood Cell 8.2 10^3/uL (4.4-10.8)
[2021-06-14 07:20] LABS: BUN/Creatinine Ratio 14.1
[2021-06-14 07:26] LABS: Bilirubin, Total 0.4 mg/dL (0.2-1.0); Total Protein 6.3 g/dL (6.4-8.2)
[2021-06-14 08:35] VITALS: BP 93/49
[2021-06-14] MEDS: cefTRIAXone 1GM/50ML D5W 50 ML IV SCH ×2 (09:00→12:42)
[2021-06-14] MEDS: ENOXAPARIN SOD 40 MG/0.4 ML SYRINGE SC SCH (10:00)
[2021-06-14] MEDS: PANTOPRAZOLE 40 MG/10 ML VIAL INJ IV SCH (10:00)
[2021-06-14] MEDS ORDERED: LEVO500T31 PO (12:42)
[2021-06-14] MEDS ORDERED: METR500T PO (12:42)
[2021-06-14] MEDS ORDERED: CHOL20007 PO (12:42)
[2021-06-14] MEDS ORDERED: ERGOCALCIFEROL 50,000 UNIT(1.25MG) CAP PO ONE (12:45)
[2021-06-14 13:00] VITALS: BP 94/54
== END 2021-06-14 15:35 | disposition home or self-care (01) | DRG 418 ==
LOC: SUR 06:47 → OVERFLOW 12:12 → WEST WING 12:47
PROVIDERS: ADMIT Internal Medicine; ATTEND Internal Medicine
PROC: 0FT44ZZ Resection of Gallbladder, Percutaneous Endoscopic Approach (ICD-10-PCS; principal; 2021-06-12 09:38)
DX: K81.2 Acute cholecystitis with chronic cholecystitis (principal); R65.10 Systemic inflammatory response syndrome (SIRS) of non-infectious origin without acute organ dysfunction; Z68.1 Body mass index [BMI] 19.9 or less, adult; E55.9 Vitamin D deficiency, unspecified; E66.01 Morbid (severe) obesity due to excess calories
CPT/HCPCS: 36415; 80053; 81001; 81025; 82306; 83735; 84702; 85025; 85610; 85730; 86850; 86900; 86901; C9113; G0378; J0690; J0696; J1100; J2001; J2250; J2405; J2704

== ENCOUNTER → 2021-06-24 | Outpatient (CLI) | payer BC, MEDICAID ==
[~2021-06-24] MED LIST changes: +CHOL20007 PO; +LEVO500T31 PO; +METR500T PO
[2021-06-24 10:58] LABS: Potassium 4.3 mmol/L (3.5-5.1)
[2021-06-24 11:08] LABS: Albumin 3.5 g/dL (3.4-5.0); BUN/Creatinine Ratio 18.9; Bilirubin, Total 0.2 mg/dL (0.2-1.0); Calcium 9.4 mg/dL (8.5-10.1); Total Protein 7.2 g/dL (6.4-8.2)
== END | disposition home or self-care (01) ==
LOC: LAB 09:49
PROVIDERS: ATTEND Nurse Practitioner
DX: I10 Essential (primary) hypertension (principal)
CPT/HCPCS: 36415; 80053

== ENCOUNTER 2021-08-01 13:50 | Emergency (ER) | payer BC, MEDICAID ==
[~2021-08-01] VITALS: Ht 165.1 cm; Wt 122.5 kg
[~2021-08-01 13:50] MED LIST changes: -CHOL20007 PO
[2021-08-01 13:51] VITALS: BP 157/92
[2021-08-01 14:41] LABS: Basophils # (auto) 0.1 10 ^3/uL (0-0.2); Basophils % (auto) 0.9 % (0.0-2.0); Eosinophils # (auto) 0 10 ^3/uL (0-0.8); Eosinophils % (auto) 0.6 % (0.0-7.0); Hematocrit 38.4 % (36.0-46.0); Hemoglobin 13.2 g/dL (12.2-16.2); Lymphocytes # (auto) 2.2 10 ^3/uL (0.4-5.4); Lymphocytes % (auto) 26.5 % (10.0-50.0); Mean Corpuscular Hgb Conc. 34.3 g/dL (32.0-36.0); Mean Corpuscular Volume 93.2 fL (80.0-100.0); Monocytes # (auto) 0.4 10 ^3/uL (0-1.3); Monocytes % (auto) 5.2 % (0.0-12.0); Neutrophils # (auto) 5.5 10 ^3/uL (1.6-8.6); Neutrophils % (auto) 66.8 % (37.0-80.0); Nucleated Red Blood Cells % 0.1 %; Red Blood Cells 4.12 10^6/uL (4.0-5.20); Red Cell Distribution Width 13.9 % (11.8-14.3); White Blood Cell 8.2 10^3/uL (4.4-10.8)
[2021-08-01 14:50] LABS: Albumin 3.7 g/dL (3.4-5.0); Potassium 3.7 mmol/L (3.5-5.1)
[2021-08-01 14:51] LABS: Urine Bacteria FEW /hpf (None Seen); Urine Blood 1+ /uL (Negative); Urine Mucus FEW (None Seen); Urine Specific Gravity 1.029 (1.001-1.035); Urine WBC 2 /hpf (0 - 5)
[2021-08-01 14:52] LABS: BUN/Creatinine Ratio 15.1
[2021-08-01 14:55] LABS: Bilirubin, Total 0.2 mg/dL (0.2-1.0); Total Protein 7.5 g/dL (6.4-8.2)
== END 2021-08-01 15:26 | disposition home or self-care (01) ==
LOC: ER 13:50
DX: Z32.01 Encounter for pregnancy test, result positive (principal); O20.0 Threatened abortion; K21.9 Gastro-esophageal reflux disease without esophagitis; E03.9 Hypothyroidism, unspecified; Z90.49 Acquired absence of other specified parts of digestive tract; Z79.2 Long term (current) use of antibiotics; Z79.899 Other long term (current) drug therapy; Z3A.00 Weeks of gestation of pregnancy not specified
CPT/HCPCS: 36415; 80053; 81001; 81025; 84702; 85025

== ENCOUNTER 2021-08-03 09:39 | Emergency (ER) | payer BC, MEDICAID ==
[~2021-08-03] VITALS: Ht 165.1 cm; Wt 122.5 kg
[2021-08-03 10:04] VITALS: BP 119/62
[2021-08-03] MEDS ORDERED: NAPR500T31 PO (11:28)
== END 2021-08-03 11:26 | disposition home or self-care (01) ==
LOC: ER 09:39
DX: O03.9 Complete or unspecified spontaneous abortion without complication (principal); K21.9 Gastro-esophageal reflux disease without esophagitis; E03.9 Hypothyroidism, unspecified; Z32.02 Encounter for pregnancy test, result negative; Z90.49 Acquired absence of other specified parts of digestive tract; Z79.2 Long term (current) use of antibiotics; Z79.899 Other long term (current) drug therapy; Z3A.00 Weeks of gestation of pregnancy not specified
CPT/HCPCS: 36415; 84702

== ENCOUNTER → 2021-09-30 | Outpatient (CLI) | payer BC, MEDICAID ==
[~2021-09-30] MED LIST changes: +NAPR500T31 PO
== END | disposition home or self-care (01) ==
LOC: XYW 12:36
PROVIDERS: ATTEND Internal Medicine
DX: I08.0 Rheumatic disorders of both mitral and aortic valves (principal); R07.89 Other chest pain
CPT/HCPCS: 93306

== ENCOUNTER → 2021-10-04 | Outpatient (CLI) | payer BC, MEDICAID | END | disposition home or self-care (01) | LOC: LAB 09:25 | PROVIDERS: ATTEND Obstetrics & Gynecology | DX: O03.9 Complete or unspecified spontaneous abortion without complication (principal) | CPT/HCPCS: 36415; 84702 ==

== ENCOUNTER → 2021-11-25 | Outpatient (CLI) | payer BC, MEDICAID ==
[2021-11-25 08:36] VITALS: BP 119/72
== END | disposition home or self-care (01) ==
LOC: XYW 08:12
PROVIDERS: ATTEND Internal Medicine
DX: R07.89 Other chest pain (principal); E66.01 Morbid (severe) obesity due to excess calories; Z68.41 Body mass index [BMI] 40.0-44.9, adult
CPT/HCPCS: 93017

== ENCOUNTER 2022-01-10 07:38 | Day surgery (SDC) | payer BC, MEDICAID ==
[2022-01-08 12:10] LABS: Basophils # (auto) 0.1 10 ^3/uL (0-0.2); Basophils % (auto) 0.9 % (0.0-2.0); Eosinophils # (auto) 0.1 10 ^3/uL (0-0.8); Eosinophils % (auto) 0.9 % (0.0-7.0); Hematocrit 39.3 % (36.0-46.0); Hemoglobin 13.1 g/dL (12.2-16.2); Lymphocytes # (auto) 2.5 10 ^3/uL (0.4-5.4); Lymphocytes % (auto) 37.9 % (10.0-50.0); Mean Corpuscular Hemoglobin 31.3 pg (28.0-32.0); Mean Corpuscular Hgb Conc. 33.3 g/dL (32.0-36.0); Monocytes # (auto) 0.4 10 ^3/uL (0-1.3); Monocytes % (auto) 6.4 % (0.0-12.0); Neutrophils # (auto) 3.5 10 ^3/uL (1.6-8.6); Neutrophils % (auto) 53.9 % (37.0-80.0); Red Blood Cells 4.18 10^6/uL (4.0-5.20); Red Cell Distribution Width 13.1 % (11.8-14.3); White Blood Cell 6.5 10^3/uL (4.4-10.8)
[2022-01-08 12:25] LABS: INR 0.91 (0.9-1.15); Partial Thromboplastin Time 23.6 sec (24.6-33.4)
[2022-01-08 13:10] LABS: Albumin 3.5 g/dL (3.4-5.0); Calcium 9.1 mg/dL (8.5-10.1); Potassium 4.5 mmol/L (3.5-5.1)
[2022-01-08 13:18] LABS: BUN/Creatinine Ratio 15.2; Bilirubin, Total 0.3 mg/dL (0.2-1.0); Total Protein 7.1 g/dL (6.4-8.2)
[~2022-01-10] VITALS: Ht 165.1 cm; Wt 117.9 kg
[~2022-01-10 07:38] MED LIST changes: +ALBUAER3 IN; +CHOL20007 PO; +FEXO-47 PO; +IBUP400T22 PO; -LEVO500T31 PO; -METR500T PO; +MULT1TAB62 PO; -NAPR500T31 PO; -NITR-87 PO; -PERCOT PO; -TIZA2CAP12 PO
[2022-01-10] MEDS ORDERED: VERAPAMIL 2.5MG/ML INJ 2ML VIAL IV ONE (10:17)
[2022-01-10] MEDS ORDERED: fentaNYL CITRATE 100 MCG/2 ML VL ONE (10:17)
[2022-01-10] MEDS ORDERED: ANGIOMAX 250 MG VIAL IV ONE (10:17)
[2022-01-10] MEDS ORDERED: HEPARIN SODIUM (PORCINE) 5000 UNITS/ML 1ML VIAL ONE (10:17)
[2022-01-10] MEDS ORDERED: MIDAZOLAM HCL 2MG/2ML 2ml VIAL (1mg/ml) ONE (10:18)
[2022-01-10] MEDS ORDERED: SODIUM CHL 0.9% 0 ML ONE (10:18)
[2022-01-10] MEDS ORDERED: LIDOCAINE 2%HCL (LOCAL ANESTH.) INJ 20ML MDV ONE (10:20)
[2022-01-10] MEDS ORDERED: IOHEXOL 350 MG/ML 100ML IJ ONE (10:20)
[2022-01-10] MEDS ORDERED: IODIXANOL 320MG/ML 100ML BTL IV ONE (10:46)
== END 2022-01-10 13:24 | disposition home or self-care (01) ==
LOC: CATH 07:38
PROVIDERS: ATTEND Internal Medicine
DX: R07.9 Chest pain, unspecified (principal); I25.10 Atherosclerotic heart disease of native coronary artery without angina pectoris; Z98.890 Other specified postprocedural states; Z79.899 Other long term (current) drug therapy; Z20.822 Contact with and (suspected) exposure to COVID-19
CPT/HCPCS: 36415; 80053; 81025; 85025; 85610; 85730; 93460; C1751; C1769; C1887; C1894; J1644; J2250; J3010; Q9967; U0003; 99152; 99153

== ENCOUNTER → 2022-03-25 | Outpatient (CLI) | payer BC, MEDICAID | END | disposition home or self-care (01) | LOC: LAB 14:59 | PROVIDERS: ATTEND Nurse Practitioner | DX: Z34.90 Encounter for supervision of normal pregnancy, unspecified, unspecified trimester (principal); Z3A.00 Weeks of gestation of pregnancy not specified | CPT/HCPCS: 36415; 81025; 84702 ==

== ENCOUNTER 2022-04-01 18:32 | Emergency (ER) | payer BC, OTHER ==
[~2022-04-01] VITALS: Ht 165.1 cm; Wt 122.7 kg
[2022-04-01 20:48] LABS: Urine Bacteria FEW /hpf (None Seen); Urine Blood Negative /uL (Negative); Urine Mucus FEW (None Seen); Urine Specific Gravity 1.025 (1.001-1.035); Urine WBC 4 /hpf (0 - 5)
[2022-04-01] MEDS ORDERED: ACETAMINOPHEN 325 MG TAB PO ONE (21:45)
[2022-04-01] MEDS ORDERED: SODIUM CHLORIDE 0.9% 1,000 ML IV ONE (21:45)
[2022-04-01] MEDS ORDERED: cefTRIAXone SOD 1,000 MG VL IM ONE (21:45)
[2022-04-01] MEDS ORDERED: CEPH-510 PO (21:48)
[2022-04-01] MEDS ORDERED: ACET-1158 PO (21:48)
[2022-04-01 22:16] LABS: Basophils # (auto) 0.1 10 ^3/uL (0-0.2); Basophils % (auto) 0.8 % (0.0-2.0); Eosinophils # (auto) 0.1 10 ^3/uL (0-0.8); Eosinophils % (auto) 0.9 % (0.0-7.0); Hematocrit 39.1 % (36.0-46.0); Hemoglobin 13.3 g/dL (12.2-16.2); Lymphocytes # (auto) 2.9 10 ^3/uL (0.4-5.4); Lymphocytes % (auto) 31.3 % (10.0-50.0); Mean Corpuscular Hemoglobin 32.4 pg (28.0-32.0); Mean Corpuscular Volume 95.2 fL (80.0-100.0); Monocytes # (auto) 0.6 10 ^3/uL (0-1.3); Monocytes % (auto) 6.8 % (0.0-12.0); Neutrophils # (auto) 5.6 10 ^3/uL (1.6-8.6); Neutrophils % (auto) 60.2 % (37.0-80.0); Red Blood Cells 4.11 10^6/uL (4.0-5.20); Red Cell Distribution Width 13.5 % (11.8-14.3); White Blood Cell 9.2 10^3/uL (4.4-10.8)
[2022-04-01 22:32] LABS: Albumin 3.7 g/dL (3.4-5.0); Calcium 9.2 mg/dL (8.5-10.1); Potassium 4.5 mmol/L (3.5-5.1)
[2022-04-01 22:36] LABS: BUN/Creatinine Ratio 12.5; Bilirubin, Total 0.4 mg/dL (0.2-1.0); Total Protein 7.2 g/dL (6.4-8.2)
[2022-04-02 01:20] VITALS: BP 110/46
== END 2022-04-02 01:27 | disposition home or self-care (01) ==
LOC: EDUNIT# 18:35 → ER 18:35
DX: O23.41 Unspecified infection of urinary tract in pregnancy, first trimester (principal); N39.0 Urinary tract infection, site not specified; R10.2 Pelvic and perineal pain; Z90.49 Acquired absence of other specified parts of digestive tract; Z79.899 Other long term (current) drug therapy; Z3A.01 Less than 8 weeks gestation of pregnancy; Z20.822 Contact with and (suspected) exposure to COVID-19
CPT/HCPCS: 36415; 76801; 76817; 80053; 81001; 81025; 83690; 84702; 85025; 87426; 87804; 96372; 99284; J0696

== ENCOUNTER → 2022-04-10 | Outpatient (CLI) | payer BC ==
[~2022-04-10] MED LIST changes: +ACET-1158 PO; +CEPH-510 PO
== END | disposition home or self-care (01) ==
LOC: LAB 14:05
PROVIDERS: ATTEND Nurse Practitioner
DX: Z34.90 Encounter for supervision of normal pregnancy, unspecified, unspecified trimester (principal); Z3A.00 Weeks of gestation of pregnancy not specified
CPT/HCPCS: 36415; 81025; 84702

== ENCOUNTER → 2022-05-01 | Outpatient (CLI) | payer BC, MEDICAID ==
[2022-05-01 10:58] LABS: Basophils # (auto) 0.1 10 ^3/uL (0-0.2); Basophils % (auto) 0.7 % (0.0-2.0); Eosinophils # (auto) 0.1 10 ^3/uL (0-0.8); Hematocrit 37.1 % (36.0-46.0); Hemoglobin 12.8 g/dL (12.2-16.2); Lymphocytes % (auto) 24.3 % (10.0-50.0); Mean Corpuscular Hemoglobin 32.5 pg (28.0-32.0); Mean Corpuscular Hgb Conc. 34.6 g/dL (32.0-36.0); Monocytes # (auto) 0.5 10 ^3/uL (0-1.3); Monocytes % (auto) 5.5 % (0.0-12.0); Neutrophils # (auto) 5.7 10 ^3/uL (1.6-8.6); Neutrophils % (auto) 68.5 % (37.0-80.0); Nucleated Red Blood Cells % 0.1 %; Red Blood Cells 3.95 10^6/uL (4.0-5.20); Red Cell Distribution Width 13.3 % (11.8-14.3); White Blood Cell 8.3 10^3/uL (4.4-10.8)
[2022-05-01 11:59] LABS: Amphetamine Screen, Urine NEGATIVE (NEGATIVE); Barbiturate Scree,Urine NEGATIVE (NEGATIVE); Benzodiazephine Screen, Urine NEGATIVE (NEGATIVE); Cannabinoid Screen, Urine NEGATIVE (NEGATIVE); Cocaine Screen, Urine NEGATIVE (NEGATIVE); Opiate Scree,Urine NEGATIVE (NEGATIVE); Phencyclidine Screen, Urine NEGATIVE (NEGATIVE)
[2022-05-02 06:07] LABS: RPR Non Reactive (Non Reactive)
== END | disposition home or self-care (01) ==
LOC: LAB 10:31
PROVIDERS: ATTEND Obstetrics & Gynecology
DX: Z34.80 Encounter for supervision of other normal pregnancy, unspecified trimester (principal); N39.0 Urinary tract infection, site not specified; Z31.430 Encounter of female for testing for genetic disease carrier status for procreative management; Z36.0 Encounter for antenatal screening for chromosomal anomalies; Z3A.00 Weeks of gestation of pregnancy not specified
CPT/HCPCS: 36415; 80307; 83036; 84112; 84144; 84702; 85025; 86592; 86703; 86762; 86850; 86900; 86901; 87086; 87340

== ENCOUNTER → 2023-06-16 | Outpatient (CLI) | payer MEDICAID ==
[~2023-06-16] MED LIST changes: -ACET-1158 PO; +ACET-1882 PO; +ACET500T58 PO; +ASCO500T11 PO; +DOCU-265 PO; +FER325T PO; +IBU600T PO; +IBUP-1453 PO; -IBUP400T22 PO; +PREN-96 PO
[2023-06-16 14:15] LABS: Basophils # (auto) 0 10 ^3/uL (0-0.2); Basophils % (auto) 0.7 % (0.0-2.0); Eosinophils # (auto) 0.1 10 ^3/uL (0-0.8); Eosinophils % (auto) 1.3 % (0.0-7.0); Hematocrit 38.5 % (36.0-46.0); Hemoglobin 12.8 g/dL (12.2-16.2); Lymphocytes # (auto) 2.2 10 ^3/uL (0.4-5.4); Lymphocytes % (auto) 31.5 % (10.0-50.0); Mean Corpuscular Hemoglobin 30.1 pg (28.0-32.0); Mean Corpuscular Hgb Conc. 33.2 g/dL (32.0-36.0); Mean Corpuscular Volume 90.7 fL (80.0-100.0); Monocytes # (auto) 0.5 10 ^3/uL (0-1.3); Monocytes % (auto) 6.6 % (0.0-12.0); Neutrophils # (auto) 4.2 10 ^3/uL (1.6-8.6); Neutrophils % (auto) 59.9 % (37.0-80.0); Nucleated Red Blood Cells % 0.1 %; Red Blood Cells 4.25 10^6/uL (4.0-5.20); Red Cell Distribution Width 15.4 % (11.8-14.3)
[2023-06-16 15:10] LABS: Follicle Stimulating Hormone 21.7 IU/L (SEE BELOW); Leuteinizing Hormone 10.9 IU/L; Thyroid Stimulating Hormone 3.19 uIU/mL (0.55-4.78)
[2023-06-16 15:12] LABS: Beta HCG, Quantitative 0.7 mIU/mL (1.5-4.2)
== END | disposition home or self-care (01) ==
LOC: LAB 13:47
PROVIDERS: ATTEND Obstetrics & Gynecology
DX: N93.9 Abnormal uterine and vaginal bleeding, unspecified (principal)
CPT/HCPCS: 36415; 82670; 83001; 83002; 84403; 84443; 84702; 85025

== ENCOUNTER 2023-08-21 19:41 | Emergency (ER) | payer MEDICAID ==
[~2023-08-21] VITALS: Ht 165.1 cm; Wt 121.6 kg
[2023-08-21 23:13] VITALS: BP 123/76; PULSE 67; RESP 18; TEMP 98.3; O2SAT 98
== END 2023-08-21 23:41 | disposition home or self-care (01) ==
LOC: ER 19:41
DX: M79.662 Pain in left lower leg (principal); R20.0 Anesthesia of skin; K21.9 Gastro-esophageal reflux disease without esophagitis; Z90.49 Acquired absence of other specified parts of digestive tract
CPT/HCPCS: 93971

== ENCOUNTER 2023-10-23 17:01 | Emergency (ER) | payer BC, MEDICAID ==
[~2023-10-23] VITALS: Ht 160 cm; Wt 118.6 kg
[2023-10-23] MEDS: ALBUTEROL SULF 2.5 MG/0.5ML(0.5%) NEB SOLN NEB ONE (17:55)
[2023-10-23] MEDS: IPRATROPIUM BROM 0.5 MG/2.5ML INH SOL NEB ONE (17:55)
[2023-10-23] MEDS: DexAMETHasone SOD PHOS 10MG/1ML VIAL INJ IM ONE (18:01)
[2023-10-23 18:13] LABS: Basophils # (auto) 0 10 ^3/uL (0-0.2); Basophils % (auto) 0.2 % (0.0-2.0); Eosinophils # (auto) 0 10 ^3/uL (0-0.8); Eosinophils % (auto) 0.4 % (0.0-7.0); Hematocrit 41.3 % (36.0-46.0); Hemoglobin 13.9 g/dL (12.2-16.2); Lymphocytes # (auto) 0.9 10 ^3/uL (0.4-5.4); Lymphocytes % (auto) 9.3 % (10.0-50.0); Mean Corpuscular Hemoglobin 31.3 pg (28.0-32.0); Mean Corpuscular Hgb Conc. 33.8 g/dL (32.0-36.0); Mean Corpuscular Volume 92.7 fL (80.0-100.0); Monocytes # (auto) 0.2 10 ^3/uL (0-1.3); Monocytes % (auto) 1.8 % (0.0-12.0); Neutrophils # (auto) 8.1 10 ^3/uL (1.6-8.6); Neutrophils % (auto) 88.3 % (37.0-80.0); Red Blood Cells 4.46 10^6/uL (4.0-5.20); Red Cell Distribution Width 14.8 % (11.8-14.3); White Blood Cell 9.2 10^3/uL (4.4-10.8)
[2023-10-23 18:22] LABS: Chloride 107 mmol/L (98-107); Potassium 3.7 mmol/L (3.5-5.1); Sodium 139 mmol/L (136-145)
[2023-10-23 18:23] LABS: Anion Gap 7 (5-15); Calcium 9.4 mg/dL (8.7-10.4); Carbon Dioxide 25 mmol/L (20-30)
[2023-10-23 18:28] LABS: BUN/Creatinine Ratio 15.2 (10.0-20.0); Blood Urea Nitrogen 12 mg/dL (9-23); Glucose 134 mg/dL (74-106)
[2023-10-23] MEDS: SODIUM CHLORIDE 0.9% 1,000 ML IV ONE (18:50)
[2023-10-23] MEDS: IOHEXOL 350 MG/ML 100ML IJ ONE (19:41)
[2023-10-23] MEDS: METOPROLOL SUCCINATE XL 50 MG TAB PO ONE (20:40)
[2023-10-23 21:24] VITALS: BP 111/60; PULSE 103; RESP 19; TEMP 98.8; O2SAT 96
[2023-10-23] MEDS: ONDANSETRON ODT 4 MG TAB PO ONE (21:37)
[2023-10-23] MEDS ORDERED: BENZ100C97 PO (22:51)
[2023-10-23] MEDS ORDERED: ZOFR4T PO (22:51)
[2023-10-23] MEDS ORDERED: OMEP-335 PO (22:51)
== END 2023-10-23 23:02 | disposition home or self-care (01) ==
LOC: ER 17:06
DX: K21.9 Gastro-esophageal reflux disease without esophagitis (principal); R05.9 Cough, unspecified; E03.9 Hypothyroidism, unspecified; Z90.49 Acquired absence of other specified parts of digestive tract
CPT/HCPCS: 36415; 71045; 71275; 80048; 84484; 85025; 85379; 93005; 94640; 96360; 96361; 96372; 99285; J1100; J7030; J7644; Q0162; Q9967; 96374

== ENCOUNTER 2024-06-30 08:31 | Emergency (ER) | payer BC, MEDICAID ==
[~2024-06-30] VITALS: Ht 165.1 cm; Wt 119.0 kg
[~2024-06-30 08:31] MED LIST changes: +BENZ100C97 PO; +OMEP-335 PO; +ZOFR4T PO
[2024-06-30 09:16] VITALS: BP 117/63; PULSE 75; RESP 18; TEMP 98; O2SAT 97
--- NOTE | 2024-06-30 09:28 | ED.PDOC ---
General HPI Comments A 39 YEAR OLD FEMALE PRESENTS TO THE ED WITH CHIEF COMPLAINT OF DYSURIA AND DARK COLORED URINE. PATIENT REPORTS THAT SHE HAS BEEN EXPERIENCING DYSURIA AND SUPRAPUBIC PRESSURE FOR THE PAST 3 DAYS, HOWEVER, YESTERDAY IT SUDDENLY RESOLVED BEFORE RETURNING TODAY. PATIENT RELAYS THAT SHE ALSO HAD ASSOCIATED DARK, CLOUDY URINE SINCE THIS MORNING. PATIENT STATES THAT HER LMP WAS ON 06/19/24. PATIENT DENIES ANY N/V, FEVER, CHILLS, FLANK PAIN, OR HEMATURIA. NO OTHER SYMPTOMS REPORTED AT THIS TIME OF CARE. Chief Complaint: Urinary Time Seen by MD: 09:24 Primary Care Provider: LATISHA VUONG Reviewed notes: Nurses Notes, Medications, Allergies Allergies: Coded Allergies: Sammy Aponte (Verified Allergy, Intermediate, 02/17/23) Home Meds Active Scripts Phenazopyridine HCl (Phenazopyridine Hydrochlo) 200 Mg Tab, 200 MG PO TID, #6 TAB Prov:FARRUKH MAY 06/30/24 Sulfamethoxazole W/Trimethopri (Bactrim Ds Tablet) 1 Tab Tb, 1 TAB PO BID for 10 Days, #20 TAB Prov:FARRUKH MAY 06/30/24 Ondansetron Odt 4MG Tab (ZOFRAN PO) 4 Mg Tb, 4 MG PO Q6HP PRN, #20 TAB ODT TAB-DISSOLVE IN MOUTH, THEN SWALLOW Prov:CHEO EPPS PAC 10/23/23 Benzonatate (Benzonatate) 100 Mg Cap, 1 CAP PO TID, #20 CAP Prov:CHEO EPPS PAC 10/23/23 Omeprazole (Omeprazole) 20 Mg Tab, 20 MG PO DAILY for 21 Days, #21 TAB Prov:CHEO EPPS PAC 10/23/23 Ascorbic Acid (VITAMIN C TABLET) 500 Mg Tb, 1 TAB PO DAILY, #30 TAB 3 Refills take with iron pill Prov:CRISTHIAN GALLEGOS 11/29/22 Ferrous Sulfate (FERROUS SULFATE) 325 Mg Tb, 1 TAB PO DAILY, #30 TAB 3 Refills Prov:CRISTHIAN GALLEGOS 11/29/22 Ibuprofen Micronized (MOTRIN TABLET) 600 Mg Tb, 600 MG PO Q6HP PRN for 15 Days, #60 TAB Prov:CRISTHIAN GALLEGOS 11/28/22 Docusate Sodium (Docusate Sodium) 100 Mg Cap, 100 MG PO HS PRN for 30 Days, #30 CAP 1 Refill Prov:CRISTHIAN GALLEGOS [employer] 11/28/22 Acetaminophen (Acetaminophen) 325 Mg Tab, 650 MG PO Q6HP PRN for 10 Days, #80 TAB Prov:CRISTHIAN GALLEGOS [employer] 11/28/22 Acetaminophen (Acetaminophen) 500 Mg Tab, 500 MG PO QIDP, #30 TAB 0 Refills Prov:RUBIN RUSSELL 04/01/22 Cephalexin ( Keflex 500) 500 Mg Cap, 1 CAP PO QID for 7 Days, #28 CAP 0 Refills Prov:RUBIN RUSSELL 04/01/22 Reported Medications Vit W/ Ferrous Fumara ( One Daily) Daily Tab, 1 TAB PO DAILY, #90 TAB 3 Refills 09/13/22 Multiple Vitamins W/ Minerals (Multivitamin Women) 1 Tab Tab, 1 TAB PO DAILY for SUPPLEMENT 01/08/22 Cholecalciferol (VITAMIN D3) 2,000 Unit Tab, 1 TAB PO DAILY for SUPPLEMENT 01/08/22 Ibuprofen (Ibuprofen) 400 Mg Tab, 400 MG PO Q4HR PRN for PAIN SCALE 1 THRU 6 01/08/22 Albuterol Sulfate (VENTOLIN MDI) 90 Mcg Ih, 1-2 PUFF IN Q6HR PRN for SHORTNESS OF BREATH 01/08/22 Fexofenadine Hydrochloride (RONAL ALLERGY) 60 Mg Tab, 60 MG PO DAILY for ALLERGIES 01/08/22 Information Source: Patient Mode of Arrival: Ambulatory Severity: Moderate Inability to void: None Timing: Days Duration: Since onset Prehospital treatment: None Onset: Spontaneous Symptoms: Dysuria, Other (DARK COLORED URINE) History of: None Location: Suprapubic associated signs and symptoms: Abdominal Pain, Dysuria Past Medical History PAST MEDICAL HISTORY: GERD, Thyroid Surgical History: Cholecystectomy 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 Family History Family History: Unknown Social History Smoker: Non-Smoker Alcohol: Denies ETOH Use Drugs: Denies Drug Use Lives In: Home Constitutional: denies: chills, diaphoresis, fatigue, fever, malaise, sweats, weakness, others EENTM: denies: blurred vision, double vision, ear bleeding, ear discharge, ear drainage, ear pain, ear ringing, eye pain, eye redness, hearing loss, mouth pain, mouth swelling, nasal discharge, nose bleeding, nose congestion, nose pain, photophobia, tearing, throat pain, throat swelling, voice changes, others Respiratory: denies: cough, hemoptysis, orthopnea, SOB at rest, shortness of breath, SOB with excertion, stridor, wheezing, others Cardiovascular: denies: chest pain, dizzy spells, diaphoresis, Dyspnea on exertion, edema, irregular heart beat, left arm pain, lightheadedness, palpitations, PND, syncope, others Gastrointestinal: reports: abdominal pain; denies: abdomen distended, blood streaked bowels, constipated, diarrhea, dysphagia, difficulty swallowing, hematemesis, melena, nausea, poor appetite, poor fluid intake, rectal bleeding, rectal pain, vomiting, others Genitourinary: reports: dysuria, others (DARK COLORED URINE); denies: abnormal vagina bleeding, burning, dyspareunia, flank pain, frequency, hematuria, incontinence, pain, , vagina discharge, urgency Neurological: denies: dizziness, fainting, headache, left sided numbness, left sided weakness, numbness, paresthesia, pre-existing deficit, right sided numbness, right sided weakness, seizure, speech problems, tingling, tremors, weakness, others Musculoskeletal: denies: back pain, gout, joint pain, joint swelling, muscle pain, muscle stiffness, neck pain, others Integumetry: denies: bruises, change in color, change in hair/nails, dryness, laceration, lesions, lumps, rash, wounds, others Allergic/Immunocompromised: denies: Difficulty Healing, Frequent Infections, Hives, Itching, others Hematologic/Lymphatic: denies: anemia, blood clots, easy bleeding, easy bruising, swollen glands, others Endocrine: denies: excessive hunger, excessive sweating, excessive thirst, excessive urination, flushing, intolerance to cold, intolerance to heat, unexplained weight gain, unexplained weight loss, others Psychiatric: denies: anxiety, bipolar disorder, depression, hopeless, panic disorder, schizophrenia, sleepless, suicidal, others All Other Systems: Reviewed and Negative Physical Exam General Appearance: No Apparent Distress, Normal HEENT: Normal ENT Inspection, PERRL/EOMI Neck: Full Range of Motion, Non-Tender, Normal, Normal Inspection Respiratory: Chest Non-Tender, Lungs Clear, No Accessory Muscle Use, No Respiratory Distress, Normal Breath Sounds Cardiovascular: No Edema, No JVD, No Murmur, No Gallop, Normal Peripheral Pulses, Regular Rate/Rhythm Breast Exam: Deferred Gastrointestinal: No Organomegaly, Non Tender, No Pulsatile Mass, Normal Bowel Sounds, Soft, Suprapubic (PRESSURE, NO GUARDING AND REBOUND TENDERNESS. ), Tenderness Genitalia: Deferred Pelvic: Normal External Exam, Tender Uterus Rectal: Deferred Extremities: No calf tenderness, Normal capillary refill, Normal inspection, Normal range of motion, Non-tender, No pedal edema Musculoskeletal : Apperance: Normal Neurologic: Alert, claims technician II-XII nml as Tested, No Motor Deficits, Normal Affect, Normal Mood, No Sensory Deficits Cerebellar Function: Normal Reflexes: Normal Skin: Dry, Normal Color, Warm Peripheral Pulses: 2+ carotid (R), 2+ carotid (L) Lymphatic: No Adenopathy Was a procedure done? Was a procedure done?: No Differential Diagnosis Kidney stone (Female): N/A Urinary Problem (Female): Pyelonephritis, Urolithiasis, UTI, Vaginitis X-Ray, Labs, Meds, VS Vital Signs Date Time Temp Pulse Resp B/P (MAP) Pulse Ox O2 Delivery O2 Flow Rate FiO2 06/30/24 09:16 98.0 75 18 117/63 (81) 97 98.0 06/30/24 09:16 75 18 97 Room Air 06/30/24 08:58 98.0 75 18 117/63 (81) 97 Lab Test 06/30/24 08:54 Range/Units Urine Color Brown H Yellow Urine Clarity Ex.turbid Clear Urine pH 6.0 5.0-9.0 Urine Specific [place] 1.039 H 1.001-1.035 Urine Protein 2+ H Negative Urine Ketones Negative Negative Urine Blood 3+ H Negative /uL Urine Nitrite Negative Negative Urine Bilirubin Negative Negative Urine Urobilinogen Normal Negative mg/dL Urine Leukocyte Esterase 3+ Negative /uL Urine RBC 4617 0 - 4 /hpf Urine WBC Clumps Present None Seen /hpf Urine Microscopic WBC 1295 H 0-5 /HPF Urine Squamous Epithelial Cells Few <5 /hpf Urine Bacteria None seen None Seen /hpf Urine Mucus Few None Seen Urine Glucose Trace Normal mg/dL Current Medications Medications (Trade) Dose Ordered Sig/Neil Route Start Time Stop Time Status Last Admin Ceftriaxone Sodium (Rocephin) 1,000 mg ONCE ONCE IM 06/30/24 10:15 06/30/24 10:16 DC 06/30/24 10:23 Phenazopyridine HCl (Pyridium Tablet) 200 mg ONCE ONCE PO 06/30/24 10:15 06/30/24 10:16 DC 06/30/24 10:23 X-Ray, Labs, Meds, VS Comment EXTERNAL MEDICAL RECORDS REVIEWED: 10/23/23 FOR ALLERGIES INDEPENDENT HISTORIANS: [NONE] SOCIAL DETERMINANTS OF HEALTH: [NONE] LABS ORDERED: UA REVIEWED AND INTERPRETED RESULTS: NONE IMAGING ORDERED: NONE TREATMENTS ORDERED: ROCEPHIN 1G IM, PHENAZOPYRIDINE 200MG PO PROCEDURES PERFORMED: NONE CRITICAL CARE TIME: NONE I HAVE DISCUSSED THE PATIENT WITH THE ATTENDING PHYSICIAN DR. BOBO AND HE AGREES WITH THE PATIENT'S PLAN OF CARE AND DISPOSITION. BASED ON HISTORY OF PRESENT ILLNESS, AND PHYSICAL EXAM, PATIENT WILL BE DISCHARGED HOME. DISCUSSED PLAN FOR DISCHARGE HOME WITH RX. MEDICATION WARNINGS GIVEN. SHARED DECISION MAKING: DISCUSSED WITH PATIENT THAT THEIR WORKUP WAS NORMAL. PATIENT INSTRUCTED TO FOLLOW UP WITH PRIMARY CARE PROVIDER IN 1-2 DAYS FOR RE- EVALUATION OF SYMPTOMS. PATIENT VERBALIZES UNDERSTANDING TO RETURN TO ED FOR NEW OR WORSENING SYMPTOMS OR IF FOLLOW UP WITH PCP CANNOT BE OBTAINED. PATIENT FEELS COMFORTABLE GOING HOME AT THIS TIME. ALL QUESTIONS ADDRESSED AT TIME OF DISCHARGE. Time of 1ST Reevaluation: 10:00 Reevaluation 1ST: Improved Patient Education/Counseling: Diagnosis, Treatment, Need For Follow Up Family Education/Counseling: Diagnosis, Treatment, No Family Present Medical Screening: No EMC Exist At This Time Departure 1 Departure Time of Disposition: 10:34 Impression: Primary Impression: UTI (urinary tract infection) Qualified Codes: N30.01 - Acute cystitis with hematuria Disposition: HOME / SELF CARE / HOMELESS Condition: Stable Additional Instructions: FOLLOW-UP WITH PCP IN 1 TO 2 DAYS. TAKE MEDICATIONS PRESCRIBED. RETURN TO ED FOR ANY NEW OR WORSENING SYMPTOMS. e-Prescriptions Phenazopyridine HCl (Phenazopyridine Hydrochlo) 200 Mg Tab 200 MG PO TID, #6 TAB Prov: FARRUKH MAY 06/30/24 Sulfamethoxazole W/Trimethopri (Bactrim Ds Tablet) 1 Tab Tb 1 TAB PO BID for 10 Days, #20 TAB Prov: FARRUKH MAY 06/30/24 Discharged With: Self Critical Care Note Critical Care Time?: No Stability Stability form required: No Heart Score Heart Score: Heart Score Response (Comments) Value History N/A 0 EKG N/A 0 Age N/A 0 Risk Factors N/A 0 Troponin N/A 0 Total 0 I personally scribed for FARRUKH MAY ([email or web address]) on 06/30/24 at 09:28. Electronically submitted by Manfred Galindo ([email or web address]). I personally scribed for FARRUKH MAY ([email or web address]) on 06/30/24 at 10:18. Electronically submitted by Manfred Galindo ([email or web address]). I personally scribed for FARRUKH MAY ([email or web address]) on 06/30/24 at 10:24. Electronically submitted by Manfred Galindo ([email or web address]). FARRUKH MAY Jun 30, 2024 09:28
[2024-06-30 09:45] LABS: Urine Bacteria None Seen /hpf (None Seen)
[2024-06-30 09:55] LABS: Urine Blood 3+ /uL (Negative); Urine Clarity Ex.Turbid (Clear); Urine Color Brown (Yellow); Urine Mucus FEW (None Seen); Urine Protein, UAD 2+ (Negative); Urine Specific Gravity 1.039 (1.001-1.035); Urine Squamous Epithelial Cell FEW /hpf (<5); Urine Urobilinogen Normal (Negative); Urine WBC 1295 /HPF (0-5); Urine WBC Clumps PRESENT /hpf (None Seen)
[2024-06-30] MEDS: PHENAZOPYRIDINE HCL 100 MG TAB PO ONE (10:23)
[2024-06-30] MEDS: cefTRIAXone SOD 1,000 MG VL IM ONE (10:23)
[2024-06-30] MEDS ORDERED: PHEN-922 PO (10:32)
[2024-06-30] MEDS ORDERED: BACDST PO (10:32)
== END 2024-06-30 10:38 | disposition home or self-care (01) ==
LOC: ER 08:31
DX: N39.0 Urinary tract infection, site not specified (principal); K21.9 Gastro-esophageal reflux disease without esophagitis; E03.9 Hypothyroidism, unspecified; Z88.8 Allergy status to other drugs, medicaments and biological substances; Z79.899 Other long term (current) drug therapy; Z90.49 Acquired absence of other specified parts of digestive tract
CPT/HCPCS: 81001; 87086; 96372; 99283; J0696

== ENCOUNTER 2024-07-08 16:17 | Inpatient (IN) | payer BC ==
[~2024-07-08] VITALS: Ht 165.1 cm; Wt 122.7 kg
[~2024-07-08 16:17] MED LIST changes: +BACDST PO; +PHEN-922 PO
--- NOTE | 2024-07-08 16:51 | ED.PDOC ---
History of Present Illness HPI Comments HPI: Poor Historian. 39-year-old female presents to emergency department for evaluation of one day history fever of 102 at home. Patient took some Tylenol prior to arrival. Patient complains of generalized body aches and low back pain and weakness. Patient was currently on Bactrim for UTI and said that her UTI symptoms are improving. Denies any other acute symptoms. Initial Vital Signs: Temp : 100.9F BP: 112/61 HR: 142 RR: 18 SpO2: 95% Past Medical History: Denies Past Surgical History: Breast biopsy, cholecystectomy REVIEW OF SYSTEMS: CONSTITUTIONAL: Denies acute: diaphoresis, chills, HEAD: Denies acute: headache, photophobia Eyes: Denies acute: Double vision, vision loss, eye pain, eye discharge. EARS: Denies acute: tinnitus, hearing loss, ear discharge, ear pain, THROAT: Denies acute: sore throat, swelling, difficulty swallowing , pain with swallowing, change in voice. NECK: Denies acute: neck pain, neck swelling, stiff neck. HEART: Denies acute : chest pain, palpitations, LUNGS: Denies acute: SOB, wheezing, cough, hemoptysis ABDOMEN: Denies acute: abdominal pain, Nausea, Vomiting, diarrhea, melena , hematemesis, hematochezia SKIN: Denies acute: rash, redness, lesions, itchiness. EXTREMITIES: Denies acute: calf pain, numbness, tingling, weakness, denies pain in extremity. Denies acute: Low back pain. Neuro: Denies acute: focal neurological deficit, motor or sensory focal neurological deficit, tremors, seizure like activity, confusion, change in mental status, loss of bowel or bladder function, cauda equina like symptoms. : Denies acute: hematuria, flank pain, increase in urinary frequency. PSYCH: Denies acute: hallucination, suicidal ideation, homicidal ideation. FEMALE: Denies acute: abnormal vaginal bleeding, foul odor, unusual discharge. PHYSICAL EXAM: General: no acute distress, awake and alert. Head: normocephalic, atraumatic. Neck: supple, trachea is midline, no swelling. Throat: Normal phonation. Eyes:, no erythema, no purulent discharge, no proptosis, no icterus. Heart: regular tachycardia, no significant murmur appreciated. Lungs: no apparent respiratory distress, Able to speak in full sentences. No wheezing, no rhonchi, no crackles. No stridors Clear to auscultation bilaterally. Abdomen: non tender to palpation, non distended, soft, no guarding, no rebound, + bowel sounds. Obese Neuro: Awake, Alert, oriented to name, self, situation, follows commands GCS=15. Speech is normal. Skin: no petechia, no purpura, no cyanosis, non-pale, not jaundice. Lower extremities: --no - Pitting edema no deformity, no focal swelling, no calf TTP. Makes eye contact. moves all four extremities. Face: no apparent facial droop. Ambulating in the ED independently. No nuchal rigidity, Kernig's sign, Brudzinski's sign, no meningeal signs. 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 Was a procedure done?: No Fever Differential Dx Differential Diagnosis: Influenza, Meningitis, Sepsis, UTI, Viral Syndrome, Pharyngitis X-Ray, Labs, Meds, VS Vital Signs Date Time Temp Pulse Resp B/P (MAP) Pulse Ox O2 Delivery O2 Flow Rate FiO2 07/08/24 20:16 106 07/08/24 19:30 99.4 109 18 109/52 (71) 95 99.4 07/08/24 19:30 109 18 95 Room Air* 0 21 07/08/24 19:17 99.4 07/08/24 18:17 102.2 07/08/24 18:04 134 20 94 Room Air* 0 07/08/24 18:02 102.2 134 20 115/72 (86) 94 102.2 07/08/24 16:17 100.9 142 18 112/61 (78) 95 100.9 Lab Test 07/08/24 18:15 07/08/24 17:06 07/08/24 16:35 Range/Units Urine Color Light-yellow Yellow Urine Clarity Clear Clear Urine pH 6.0 5.0-9.0 Urine Specific [place] 1.018 1.001-1.035 Urine Protein Negative Negative Urine Ketones Trace Negative Urine Blood 1+ H Negative /uL Urine Nitrite Negative Negative Urine Bilirubin Negative Negative Urine Urobilinogen Normal Negative mg/dL Urine Leukocyte Esterase Negative Negative /uL Urine RBC 3 0 - 4 /hpf Urine Microscopic WBC 0-5 /HPF Urine Squamous Epithelial Cells Few <5 /hpf Urine Bacteria Few H None Seen /hpf Urine Mucus Few None Seen Urine Glucose Normal Normal mg/dL Urine Test Negative Negative White Blood Count 7.3 4.4-10.8 10^3/uL Red Blood Count 4.25 4.0-5.20 10^6/uL Hemoglobin 13.3 12.2-16.2 g/dL Hematocrit 39.6 36.0-46.0 % Mean Corpuscular Volume 93.1 80.0-100.0 fL Mean Corpuscular Hemoglobin 31.3 28.0-32.0 pg Mean Corpuscular Hemoglobin Concent 33.6 32.0-36.0 g/dL Red Cell Distribution Width 13.5 11.8-14.3 % Platelet Count 166 140-450 10^3/uL Mean Platelet Volume 8.2 6.9-10.8 fL Neutrophils (%) (Auto) 95.0 H 37.0-80.0 % Lymphocytes (%) (Auto) 2.7 L 10.0-50.0 % Monocytes (%) (Auto) 1.6 0.0-12.0 % Eosinophils (%) (Auto) 0.3 0.0-7.0 % Basophils (%) (Auto) 0.4 0.0-2.0 % Neutrophils # (Auto) 7.0 1.6-8.6 10 ^3/uL Lymphocytes # (Auto) 0.2 L 0.4-5.4 10 ^3/uL Monocytes # (Auto) 0.1 0-1.3 10 ^3/uL Eosinophils # (Auto) 0 0-0.8 10 ^3/uL Basophils # (Auto) 0 0-0.2 10 ^3/uL Nucleated Red Blood Cells 0.0 % Erythrocyte Sedimentation Rate 24 H 0-20 mm/hr Sodium Level 134 L 136-145 mmol/L Potassium Level 3.9 3.5-5.1 mmol/L Chloride Level 100 98-107 mmol/L Carbon Dioxide Level 27 20-31 mmol/L Anion Gap 7 5-15 Blood Urea Nitrogen 14 9-23 mg/dL Creatinine 0.93 0.550-1.02 mg/dL Glomerular Filtration Rate Calc 80 >90 mL/min BUN/Creatinine Ratio 15.1 10.0-20.0 Serum Glucose 146 H 74-106 mg/dL Lactic Acid Level 1.9 0.4-2.0 mmol/L Calcium Level 9.8 8.7-10.4 mg/dL Total Bilirubin 0.4 0.2-1.0 mg/dL Aspartate Amino Transferase (AST) 24 13-40 U/L Alanine Aminotransferase (ALT) 44 H 7-40 U/L Alkaline Phosphatase 110 46-116 U/L Troponin I High Sensitivity < 3 L </=34 ng/L C-Reactive Protein High Sensitivity 4.30 H <1.0 mg/dL Total Protein 7.4 5.7-8.2 g/dL Albumin 4.6 3.2-4.8 g/dL Monoscreen Negative Influenza Type A Antigen Negative Negative Influenza Type B Antigen Negative Negative SARS-CoV-2 Antigen (Rapid) Negative NEGATIVE Current Medications Medications (Trade) Dose Ordered Sig/Neil Route Start Time Stop Time Status Last Admin Sodium Chloride 1,000 ml @ 1,000 mls/hr Q1H ONCE IV 07/08/24 16:45 07/08/24 17:44 DC 07/08/24 18:07 Ceftriaxone Sodium 50 ml @ 100 mls/hr ONCE ONCE IV 07/08/24 17:00 07/08/24 17:29 DC 07/08/24 18:07 Sodium Chloride 1,000 ml @ 1,000 mls/hr Q1H ONCE IV 07/08/24 18:15 07/08/24 19:14 DC 07/08/24 18:07 Acetaminophen (Tylenol Tablet Or Capsule) 1,000 mg ONCE ONCE PO 07/08/24 18:15 07/08/24 18:16 DC 07/08/24 18:17 [facility] [address] [place] [id number] Ph: [phone] DIAGNOSTIC IMAGING Diagnostic Imaging Report : [id number] Signed PATIENT: GRISELANTELMO RODRIGUEZ ACCT: [id number] UNIT: [id number] : 1985 LOC: ER ROOM / BED: / AGE / SEX: 39 / F ADM STATUS: REG ER SERVICE [id number] ORDERING PHYSICIAN: SHAGGY TIM DO PROCEDURE(s): CXRP - CHEST PORTABLE REASON: fever ORDER NUMBER(s): [id number], ACCESSION NUMBER(s): [id number] CHEST RADIOGRAPH Indication: fever Technique: Single frontal view of the chest was obtained COMPARISON: XY CHEST PORTABLE on DOS: 10/23/23 FINDINGS: Lines and Tubes: None Lungs: Clear Pleura: No effusion. No pneumothorax. Cardiomediastinal contours: Unremarkable Bones: Unremarkable IMPRESSION: 1. No acute disease. ATED BY: YOVANI MCARTHUR MD DICTATED DATE/TIME: 07/08/241737 SIGNED BY: YOVANI MCARTHUR MD SIGNED DATE/TIME: 07/08/241737 CC: Time of 1ST Reevaluation: 23:12 Reevaluation 1ST: Improved Patient Education/Counseling: Diagnosis, Treatment Family Education/Counseling: No Family Present Comments Patient presented with the above HPI.---fever---workup was initiated. patient was found with the above mentioned diagnosis. the following medications were ordered: please refer to order lists of meds and tests obtained by myself Dr. Tim. Patient ED course and VS have been stabilized. Patient has been reassessed in the ED and remained in a stable condition. Pertinent incidental findings were discussed with the patient and/or family. Patient/family voices understanding and is agreeable with plan. Patient has been observed in the ED adequate length of time to insure improvement/stability. Escalation of care considered: Consideration of escalation to observation or admission IV antibiotics given. Patient was already on oral antibiotics and still developing fever. Patient was ADMITTED to the medicine team for further evaluation and treatment of their presentation. All the reports of any imaging studies that were ordered by myself were reviewed by myself. Departure 1 Departure Time of Disposition: 18:43 Impression: Primary Impression: Fever of unknown origin Disposition: ADMITTED INPATIENT Admit to: Tele Condition: Guarded Discharged With: Self Critical Care Note Critical Care Time?: No I personally scribed for SHAGGY TIM DO ([email or web address]) on 07/08/24 at 16:55. Electronically submitted by Manfred Galindo ([email or web address]). SHAGGY TIM DO Jul 08, 2024 16:50
--- NOTE | 2024-07-08 17:40 | DVH ---
CHEST RADIOGRAPH Indication: fever Technique: Single frontal view of the chest was obtained COMPARISON: XY CHEST PORTABLE on DOS: 10/23/23 FINDINGS: Lines and Tubes: None Lungs: Clear Pleura: No effusion. No pneumothorax. Cardiomediastinal contours: Unremarkable Bones: Unremarkable IMPRESSION: 1. No acute disease.
[2024-07-08 17:42] LABS: Basophils # (auto) 0 10 ^3/uL (0-0.2); Basophils % (auto) 0.4 % (0.0-2.0); Eosinophils # (auto) 0 10 ^3/uL (0-0.8); Eosinophils % (auto) 0.3 % (0.0-7.0); Hematocrit 39.6 % (36.0-46.0); Hemoglobin 13.3 g/dL (12.2-16.2); Lymphocytes # (auto) 0.2 10 ^3/uL (0.4-5.4); Lymphocytes % (auto) 2.7 % (10.0-50.0); Mean Corpuscular Hemoglobin 31.3 pg (28.0-32.0); Mean Corpuscular Hgb Conc. 33.6 g/dL (32.0-36.0); Mean Corpuscular Volume 93.1 fL (80.0-100.0); Monocytes # (auto) 0.1 10 ^3/uL (0-1.3); Monocytes % (auto) 1.6 % (0.0-12.0); Platelet Count (auto) 166 10^3/uL (140-450); Red Blood Cells 4.25 10^6/uL (4.0-5.20); Red Cell Distribution Width 13.5 % (11.8-14.3); White Blood Cell 7.3 10^3/uL (4.4-10.8)
[2024-07-08 17:51] LABS: Albumin 4.6 g/dL (3.2-4.8); Alkaline Phosphatase 110 U/L (46-116); Anion Gap 7 (5-15); Aspartate Aminotransferase 24 U/L (13-40); BUN/Creatinine Ratio 15.1 (10.0-20.0); Blood Urea Nitrogen 14 mg/dL (9-23); Calcium 9.8 mg/dL (8.7-10.4); Carbon Dioxide 27 mmol/L (20-31); Chloride 100 mmol/L (98-107); Potassium 3.9 mmol/L (3.5-5.1); Total Protein 7.4 g/dL (5.7-8.2)
[2024-07-08 17:52] LABS: Bilirubin, Total 0.4 mg/dL (0.2-1.0)
[2024-07-08 18:00] LABS: Alanine Aminotransferase 44 U/L (7-40); Glucose 146 mg/dL (74-106); Sodium 134 mmol/L (136-145)
[2024-07-08 18:04] VITALS: PULSE 134; RESP 20; O2SAT 94
[2024-07-08 18:05] LABS: COVID19 ANTIGEN SOFIA FIA NEGATIVE (NEGATIVE)
[2024-07-08 18:06] LABS: Rapid Influenza A Negative (Negative); Rapid Influenza B Negative (Negative)
[2024-07-08] MEDS: SODIUM CHLORIDE 0.9% 1,000 ML IV ONE ×2 (18:07)
[2024-07-08] MEDS: cefTRIAXone 1GM/50ML D5W 50 ML IV ONE (18:07)
[2024-07-08] MEDS: ACETAMINOPHEN 500 MG TAB or CAP PO ONE ×2 (18:17)
[2024-07-08 19:00] LABS: Urine Bacteria FEW /hpf (None Seen); Urine Blood 1+ /uL (Negative); Urine Clarity Clear (Clear); Urine Color Light-Yellow (Yellow); Urine Mucus FEW (None Seen); Urine Protein, UAD Negative (Negative); Urine Specific Gravity 1.018 (1.001-1.035); Urine Squamous Epithelial Cell FEW /hpf (<5); Urine Urobilinogen Normal (Negative)
[2024-07-08 19:30] VITALS: PULSE 109; RESP 18; O2SAT 95
[2024-07-08 19:41] LABS: Erythrocyte Sedimentation Rate 24 mm/hr (0-20)
[2024-07-08] MEDS ORDERED: VANCOMYCIN PER PHARMACY 0 MG IV SCH (22:15)
[2024-07-08] MEDS: VANCOMYCIN 2,000 MG in SODIUM CHL 0.9% 500 ML IV ONE (22:30)
--- NOTE | 2024-07-08 23:32 | DVHHPRES ---
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 Patient mentioned that for the past couple of days he still be feeling unwell some having fevers. Yesterday he went to work and at work was feeling feverish measure his blood his body temperature which was 1021. He also mentioned having a mild suprapubic tenderness and tachycardia therefore patient decided to come in to be re-evaluated gain. Patient denies any chest pain flu-like symptoms; however he did have nausea but not to the point of vomiting. Urinalysis was clear of any infection, blood culture and urine cultures pending. Patient also mentioned of late, she has been having joint pains in his ankles. In the ED, her temperature read 100.8 with tachycardia. Past medical history: Recent history of UTI Past surgical history: None Social history; and lives at home Family history: and lives at home Past Medical History See HPI Past Surgical History For HPI Review of Systems Review of Systems Constitutional: Fever; no chills no feeling of malaise HEENT: Denies headache, ear pain, ear discharges, conjunctivitis, nasal discharge throat pain Cardiovascular: Denies chest pain, palpitation, orthopnea, PND, or pedal edema Respiratory: Denies shortness of breath, cough cough, sputum production, hemoptysis, GI: Denies abdominal pain, nausea, vomiting, diarrhea, hematemesis, hematochezia, : Denies frequency, urgency, hematuria, Endocrine: Denies unintentional weight gain or weight loss, feeling of hot flashes, Kilo: Denies easy bruising, bleeding disorders, epistaxis Musculoskeletal: Denies joint pains, muscle aches Psych: No evidence of depression, shy, suicidal ideation Constitutional: Yes: Fever Allergies: Coded Allergies: Sammy Aponte (Verified Allergy, Intermediate, 02/17/23) Medications Current Medications Medications Dose Ordered Sig/Neil Route Start Time Stop Time Status Last Admin Dose Admin Vancomycin HCl 0 ml @ 0 mls/hr UD IV 07/08/24 22:15 UNV Cefepime HCl 50 ml @ 12.5 mls/hr Q8HR IV 07/09/24 06:00 Sodium Chloride 1,000 ml @ 75 mls/hr [id number] IV 07/08/24 22:30 Exam Vital Signs Vital Signs Date Time Temp Pulse Resp B/P (MAP) Pulse Ox O2 Delivery O2 Flow Rate FiO2 07/08/24 20:16 106 07/08/24 19:30 99.4 18 109/52 (71) 95 99.4 07/08/24 19:30 Room Air* 0 21 Exam General Appearance: Alert, Oriented X3, Cooperative, No acute distress HEENT: Atraumatic, PERRLA, EOMI, Mucous membrane moist/pink Respiratory: Clear to auscultation, Normal air movement Cardiovascular: Regular rate, Normal S1, Normal S2, No murmurs, no chest wall tenderness Abdominal: NO distention, no tenderness, bowel sounds present, no scars noted Extremities: No clubbing, No cyanosis, No edema, Normal pulses, No tenderness/swelling Skin: No rashes, No breakdown, No significant lesion Neuro: Normal gait, Normal speech, Strength at 5/5 X4 ext, Normal tone, Sensation intact, Cranial nerves 3-12 NL, Reflexes 2+ Psych/Mental Status: Mental status NL, Mood NL Labs/Xrays Labs Test 07/08/24 22:30 07/08/24 18:15 07/08/24 17:06 07/08/24 16:35 Range/Units Urine Color Light-yellow Yellow Urine Clarity Clear Clear Urine pH 6.0 5.0-9.0 Urine Specific [place] 1.018 1.001-1.035 Urine Protein Negative Negative Urine Ketones Trace Negative Urine Blood 1+ H Negative /uL Urine Nitrite Negative Negative Urine Bilirubin Negative Negative Urine Urobilinogen Normal Negative mg/dL Urine Leukocyte Esterase Negative Negative /uL Urine RBC 3 0 - 4 /hpf Urine Microscopic WBC 0-5 /HPF Urine Squamous Epithelial Cells Few <5 /hpf Urine Bacteria Few H None Seen /hpf Urine Mucus Few None Seen Urine Glucose Normal Normal mg/dL Urine Test Negative Negative White Blood Count 7.3 4.4-10.8 10^3/uL Red Blood Count 4.25 4.0-5.20 10^6/uL Hemoglobin 13.3 12.2-16.2 g/dL Hematocrit 39.6 36.0-46.0 % Mean Corpuscular Volume 93.1 80.0-100.0 fL Mean Corpuscular Hemoglobin 31.3 28.0-32.0 pg Mean Corpuscular Hemoglobin Concent 33.6 32.0-36.0 g/dL Red Cell Distribution Width 13.5 11.8-14.3 % Platelet Count 166 140-450 10^3/uL Mean Platelet Volume 8.2 6.9-10.8 fL Neutrophils (%) (Auto) 95.0 H 37.0-80.0 % Lymphocytes (%) (Auto) 2.7 L 10.0-50.0 % Monocytes (%) (Auto) 1.6 0.0-12.0 % Eosinophils (%) (Auto) 0.3 0.0-7.0 % Basophils (%) (Auto) 0.4 0.0-2.0 % Neutrophils # (Auto) 7.0 1.6-8.6 10 ^3/uL Lymphocytes # (Auto) 0.2 L 0.4-5.4 10 ^3/uL Monocytes # (Auto) 0.1 0-1.3 10 ^3/uL Eosinophils # (Auto) 0 0-0.8 10 ^3/uL Basophils # (Auto) 0 0-0.2 10 ^3/uL Nucleated Red Blood Cells 0.0 % Erythrocyte Sedimentation Rate 24 H 0-20 mm/hr Sodium Level 134 L 136-145 mmol/L Potassium Level 3.9 3.5-5.1 mmol/L Chloride Level 100 98-107 mmol/L Carbon Dioxide Level 27 20-31 mmol/L Anion Gap 7 5-15 Blood Urea Nitrogen 14 9-23 mg/dL Creatinine 0.93 0.550-1.02 mg/dL Glomerular Filtration Rate Calc 80 >90 mL/min BUN/Creatinine Ratio 15.1 10.0-20.0 Serum Glucose 146 H 74-106 mg/dL Lactic Acid Level 1.9 0.4-2.0 mmol/L Calcium Level 9.8 8.7-10.4 mg/dL Total Bilirubin 0.4 0.2-1.0 mg/dL Aspartate Amino Transferase (AST) 24 13-40 U/L Alanine Aminotransferase (ALT) 44 H 7-40 U/L Alkaline Phosphatase 110 46-116 U/L Troponin I High Sensitivity < 3 L </=34 ng/L C-Reactive Protein High Sensitivity 4.30 H <1.0 mg/dL Total Protein 7.4 5.7-8.2 g/dL Albumin 4.6 3.2-4.8 g/dL Monoscreen Negative Influenza Type A Antigen Negative Negative Influenza Type B Antigen Negative Negative SARS-CoV-2 Antigen (Rapid) Negative NEGATIVE Assessment/Plan Assessment/Plan Assessments Sepsis Bacteriuria Fever of unknown origin Recent UTI Morbid obesity Plan Admit patient for further evaluation Check VALE, comprehensive Infectious disease workup such as HIV, hepatitis, VDRL To obtain blood and urine culture Start antibiotics cefepime and vancomycin Goal of care discussed for more than 30 minutes: Full code Case and plan discussed with Dr. Mendoza Plan discussed with: Patient My Orders Orders - DONAVON COOL RESIDENT Procedure Category Date Status Time Admit ADMIT 07/08/24 Transmitted 22:12 Code Status CODE 07/08/24 Transmitted 22:12 Vital Signs ANNELIESE 07/08/24 In Process 22:12 Review Orders With [facility] 07/08/24 In Process Adm.Md 22:12 Notify Md Of Changes [facility] 07/08/24 In Process From Base 22:12 Advance Directive [facility] 07/08/24 In Process 22:12 Patient Condition ORDERS 07/08/24 Transmitted 22:12 Allergies ANNELIESE 07/08/24 In Process 22:12 Notify Md Of Changes [facility] 07/08/24 In Process From Base 22:12 Vale; Comprehensive LAB 07/08/24 In Process Panel 22:12 Hiv 1&2 Antibody LAB 07/08/24 In Process 22:12 Acute Hepatitis Panel LAB 07/08/24 In Process 22:12 Sputum Induction RT 07/08/24 Logged 22:12 Respiratory Culture [facility]HELSEA 07/08/24 In Process W/ Gs 22:12 Mrsa Screen [facility] 07/08/24 Logged 22:12 C-Reactive Protein LAB 07/09/24 Verified 04:00 Basic Metabolic Panel LAB 07/09/24 Verified 04:00 Complete Blood Count LAB 07/09/24 Verified 04:00 Vancomycin Per [facility] 07/08/24 Pending Pharmacy 22:15 Cefepime 1gm/ 50ml [facility] 07/09/24 In Process (Maxipime 1gm/50ml) 06:00 Regular Diet DIET 07/09/24 Transmitted Breakfast Sodium Chloride 0.9% PHA 07/08/24 In Process 22:30 Vancomycin PHA 07/08/24 In Process (Vancomycin Hcl) 22:30 Date of Service: Jul 08, 2024 Billing Provider: SHEEBA MENDOZA MD Common Visit Codes: [id number] INP/OBS CARE (HIGH) DONAVON COOL RESIDENT Jul 08, 2024 23:32 SHEEBA MENDOZA MD Jul 11, 2024 10:56
[2024-07-09] VITALS (7 sets, daily range): BP systolic 91–115; BP diastolic 47–64; PULSE 79–87; RESP 17–19; TEMP 97.5–98.6; O2SAT 96–97
[2024-07-09] MEDS: ENOXAPARIN SOD 40 MG/0.4 ML SYRINGE SC ONE (00:48)
[2024-07-09] MEDS: SODIUM CHLORIDE 0.9% 1,000 ML IV ONE (00:50)
[2024-07-09] MEDS ORDERED: KETOROLAC TROMETH 30 MG/ML 1ML VIAL IV PRN (01:45)
[2024-07-09] MEDS: SODIUM CHLORIDE 0.9% 1,000 ML IV SCH (02:06)
[2024-07-09] MEDS: VANCOMYCIN 1GM/250ML KIT 250 ML IV SCH (02:10)
[2024-07-09 03:48] LABS: Basophils # (auto) 0 10 ^3/uL (0-0.2); Basophils % (auto) 0.7 % (0.0-2.0); Eosinophils # (auto) 0.1 10 ^3/uL (0-0.8); Eosinophils % (auto) 1.4 % (0.0-7.0); Hematocrit 35.1 % (36.0-46.0); Hemoglobin 11.7 g/dL (12.2-16.2); Lymphocytes # (auto) 0.7 10 ^3/uL (0.4-5.4); Lymphocytes % (auto) 14.7 % (10.0-50.0); Mean Corpuscular Hemoglobin 30.9 pg (28.0-32.0); Mean Corpuscular Hgb Conc. 33.3 g/dL (32.0-36.0); Mean Corpuscular Volume 92.8 fL (80.0-100.0); Monocytes # (auto) 0.2 10 ^3/uL (0-1.3); Neutrophils # (auto) 3.7 10 ^3/uL (1.6-8.6); Neutrophils % (auto) 79.2 % (37.0-80.0); Nucleated Red Blood Cells % 0.2 %; Platelet Count (auto) 124 10^3/uL (140-450); Red Blood Cells 3.79 10^6/uL (4.0-5.20); Red Cell Distribution Width 13.5 % (11.8-14.3); White Blood Cell 4.6 10^3/uL (4.4-10.8)
[2024-07-09 03:54] LABS: Chloride 107 mmol/L (98-107); Potassium 3.7 mmol/L (3.5-5.1); Sodium 138 mmol/L (136-145)
[2024-07-09 03:55] LABS: Anion Gap 6 (5-15); Carbon Dioxide 25 mmol/L (20-31)
[2024-07-09 04:01] LABS: BUN/Creatinine Ratio 13.4 (10.0-20.0); Blood Urea Nitrogen 9 mg/dL (9-23)
[2024-07-09 04:12] LABS: Calcium 8.6 mg/dL (8.7-10.4); Glucose 156 mg/dL (74-106)
[2024-07-09] MEDS: CEFEPIME 1GM/ 50ML 50 ML IV SCH (06:34)
[2024-07-09 08:42] LABS: Amphetamine Screen, Urine Neg (NEGATIVE); Barbiturate Scree,Urine Neg (NEGATIVE); Benzodiazephine Screen, Urine Neg (NEGATIVE); Cannabinoid Screen, Urine Neg (NEGATIVE); Cocaine Screen, Urine Neg (NEGATIVE); Opiate Scree,Urine Neg (NEGATIVE); Phencyclidine Screen, Urine Neg (NEGATIVE)
--- NOTE | 2024-07-09 11:46 | DVHPN2 ---
Reviewed: Care Plan Changes from previous H/P or p: No Changes General: Per HPI Objective Vitals Vital Signs Date Time Temp Pulse Resp B/P (MAP) Pulse Ox O2 Delivery O2 Flow Rate FiO2 07/09/24 08:30 98.5 80 18 96/57 (70) 96 98.5 07/08/24 19:30 Room Air* 0 21 Intake/Output Intake and Output 07/09/24 07:00 Intake Total 2050 ml Balance 2050 ml Intake IV Total 2050 ml Medications Current Medications Medications Dose Ordered Sig/Neil Route Start Time Stop Time Status Last Admin Dose Admin Vancomycin HCl 0 ml @ 0 mls/hr UD IV 07/08/24 22:15 Cefepime HCl 50 ml @ 12.5 mls/hr Q8HR IV 07/09/24 06:00 07/09/24 06:34 12.5 MLS/HR Sodium Chloride 1,000 ml @ 75 mls/hr [id number] IV 07/08/24 22:30 07/09/24 02:06 75 MLS/HR Ketorolac Tromethamine 30 mg Q6HPRN PRN IV 07/09/24 01:45 07/14/24 01:44 Vancomycin HCl 300 ml @ 200 mls/hr Q8H IV 07/09/24 12:00 Laboratory Results Laboratory Tests 07/09/24 03:21 Chemistry Test 07/08/24 17:06 07/09/24 03:21 Albumin 4.6 g/dL (3.2-4.8) Calcium Level 9.8 mg/dL (8.7-10.4) 8.6 mg/dL (8.7-10.4) L Total Protein 7.4 g/dL (5.7-8.2) LFT Test 07/08/24 17:06 Alanine Aminotransferase (ALT) 44 U/L (7-40) H Alkaline Phosphatase 110 U/L (46-116) Aspartate Amino Transferase (AST) 24 U/L (13-40) Total Bilirubin 0.4 mg/dL (0.2-1.0) Urinalysis Test 07/08/24 18:15 Urine Color Light-yellow (Yellow) Urine Clarity Clear (Clear) Urine pH 6.0 (5.0-9.0) Urine Specific [place] 1.018 (1.001-1.035) Urine Protein Negative (Negative) Urine Ketones Trace (Negative) Urine Blood 1+ /uL (Negative) H Urine Nitrite Negative (Negative) Urine Bilirubin Negative (Negative) Urine Urobilinogen Normal mg/dL (Negative) Urine Leukocyte Esterase Negative /uL (Negative) Urine RBC 3 /hpf (0 - 4) Urine Microscopic WBC /HPF (0-5) Urine Squamous Epithelial Cells Few /hpf (<5) Urine Bacteria Few /hpf (None Seen) H Urine Mucus Few (None Seen) Urine Glucose Normal mg/dL (Normal) Urine Test Negative (Negative) Assessment/Plan Assessment/Plan Patient is a 39-year-old female with with a recent history of UTI managed with Bactrim a week ago, presented to the ED today with persistent fever. Patient mentioned that for the past couple of days he still be feeling unwell some having fevers. Yesterday he went to work and at work was feeling feverish measure his blood his body temperature which was 1021. He also mentioned having a mild suprapubic tenderness and tachycardia therefore patient decided to come in to be re-evaluated gain. Patient denies any chest pain flu-like symptoms; however he did have nausea but not to the point of vomiting. Urinalysis was clear of any infection, blood culture and urine cultures pending. Patient also mentioned of late, she has been having joint pains in his ankles. In the ED, her temperature read 100.8 with tachycardia. Sepsis Bacteriuria Fever of unknown origin UTI right flank pain Morbid obesity Admit patient for further evaluation Check RAMEZ, comprehensive Infectious disease workup such as HIV, hepatitis, VDRL To obtain blood and urine culture Start antibiotics cefepime and vancomycin continue with IV ABx Plan discussed with: Patient Date of Service: Jul 09, 2024 Billing Provider: GABRIELLA JIM DO Common Visit Codes: [id number] INP/OBS CARE(HIGH) GABRIELLA JIM DO Jul 09, 2024 11:46
[2024-07-09] MEDS: VANCOMYCIN 1.5GM/300ML 300 ML IV SCH (11:53)
[2024-07-09] MEDS: FEXOFENADINE HCL 60 MG TAB PO ONE (22:03)
[2024-07-10] MEDS: VANCOMYCIN 1GM/250ML KIT 500 ML IV ONE (04:14)
[2024-07-10 05:00] VITALS: BP 106/60; PULSE 75; RESP 17; TEMP 98.7; O2SAT 97
[2024-07-10 05:43] LABS: Hemoglobin 11.3 g/dL (12.2-16.2); Mean Corpuscular Hemoglobin 31.9 pg (28.0-32.0); Mean Corpuscular Hgb Conc. 34.2 g/dL (32.0-36.0); Mean Corpuscular Volume 93.3 fL (80.0-100.0); Platelet Count (auto) 130 10^3/uL (140-450); Red Blood Cells 3.54 10^6/uL (4.0-5.20); Red Cell Distribution Width 13.4 % (11.8-14.3); White Blood Cell 4.1 10^3/uL (4.4-10.8)
[2024-07-10 05:45] LABS: Band Neutrophils % (manual) 0; Basophils % (manual) 0 (0.0-2.0); Blast Cells 0; Eosinophils % (manual) 0 (0-7); Metamyelocytes % 0; Monocytes % (manual) 0 (0-12); Myelocytes % 0; Promyelocytes % 0; Reactive Lymphocytes 0
[2024-07-10 06:19] LABS: Lymphocytes % (manual) 53 (10.0-50.0)
[2024-07-10 06:20] LABS: Platelet Estimate Decreased
[2024-07-10 08:10] VITALS: PULSE 58; RESP 16; O2SAT 98
[2024-07-10 08:30] VITALS: BP 103/59; PULSE 59; RESP 16; TEMP 97.8; O2SAT 98
[2024-07-10] MEDS: FEXOFENADINE HCL 60 MG TAB PO SCH (09:44)
[2024-07-10 12:30] VITALS: BP 116/69; PULSE 83; RESP 16; TEMP 97.7; O2SAT 97
[2024-07-10] MEDS ORDERED: VANCOMYCIN 1.5GM/300ML 300 ML IV SCH ×2 (14:45)
[2024-07-10] MEDS ORDERED: BACDST PO (15:19)
--- NOTE | 2024-07-10 15:20 | DVHDS2 ---
Discharge Summary Date of Admission Jul 08, 2024 at 22:12 Date of Discharge: Jul 10, 2024 Labs/Diagnostic Data: Laboratory Results Test 07/10/24 11:47 07/10/24 05:13 07/09/24 03:21 07/08/24 22:30 Vancomycin Level Trough 14.0 ug/mL (5-10) White Blood Count 4.1 10^3/uL (4.4-10.8) Red Blood Count 3.54 10^6/uL (4.0-5.20) Hemoglobin 11.3 g/dL (12.2-16.2) Hematocrit 33.0 % (36.0-46.0) Mean Corpuscular Volume 93.3 fL (80.0-100.0) Mean Corpuscular Hemoglobin 31.9 pg (28.0-32.0) Mean Corpuscular Hemoglobin Concent 34.2 g/dL (32.0-36.0) Red Cell Distribution Width 13.4 % (11.8-14.3) Platelet Count 130 10^3/uL (140-450) Mean Platelet Volume 8.1 fL (6.9-10.8) Neutrophils (%) (Auto) % (37.0-80.0) Lymphocytes (%) (Auto) % (10.0-50.0) Monocytes (%) (Auto) % (0.0-12.0) Basophils (%) (Auto) % (0.0-2.0) Neutrophils # (Auto) 10 ^3/uL (1.6-8.6) Lymphocytes # (Auto) 10 ^3/uL (0.4-5.4) Monocytes # (Auto) 10 ^3/uL (0-1.3) Differential Total Cells Counted 100.0 (100) Neutrophils % (Manual) 47 (37.0-80.0) Band Neutrophils % (Manual) 0 Lymphocytes % (Manual) 53 (10.0-50.0) Monocytes % (Manual) 0 (0-12) Eosinophils % (Manual) 0 (0-7) Basophils % (Manual) 0 (0.0-2.0) Metamyelocytes % (manual) 0 Myelocytes % (Manual) 0 Promyelocytes % (Manual) 0 Blast Cells % (Manual) 0 Reactive Lymphocytes 0 Platelet Estimate Decreased Creatinine 0.67 mg/dL (0.550-1.02) Glomerular Filtration Rate Calc 114 mL/min (>90) Eosinophils (%) (Auto) 1.4 % (0.0-7.0) Eosinophils # (Auto) 0.1 10 ^3/uL (0-0.8) Basophils # (Auto) 0 10 ^3/uL (0-0.2) Nucleated Red Blood Cells 0.2 % Sodium Level 138 mmol/L (136-145) Potassium Level 3.7 mmol/L (3.5-5.1) Chloride Level 107 mmol/L (98-107) Carbon Dioxide Level 25 mmol/L (20-31) Anion Gap 6 (5-15) Blood Urea Nitrogen 9 mg/dL (9-23) BUN/Creatinine Ratio 13.4 (10.0-20.0) Serum Glucose 156 mg/dL (74-106) Calcium Level 8.6 mg/dL (8.7-10.4) C-Reactive Protein High Sensitivity 6.30 mg/dL (<1.0) HIV (1&2) Antibody Negative (Negative) Test 07/08/24 18:15 07/08/24 17:06 07/08/24 16:35 Urine Color Light-yellow (Yellow) Urine Clarity Clear (Clear) Urine pH 6.0 (5.0-9.0) Urine Specific [place] 1.018 (1.001-1.035) Urine Protein Negative (Negative) Urine Ketones Trace (Negative) Urine Blood 1+ /uL (Negative) Urine Nitrite Negative (Negative) Urine Bilirubin Negative (Negative) Urine Urobilinogen Normal mg/dL (Negative) Urine Leukocyte Esterase Negative /uL (Negative) Urine RBC 3 /hpf (0 - 4) Urine Microscopic WBC /HPF (0-5) Urine Squamous Epithelial Cells Few /hpf (<5) Urine Bacteria Few /hpf (None Seen) Urine Mucus Few (None Seen) Urine Glucose Normal mg/dL (Normal) Urine Test Negative (Negative) Urine Opiates Screen Neg (NEGATIVE) Urine Fentanyl Screen Neg (NEGATIVE) Urine Barbiturates Screen Neg (NEGATIVE) Urine Phencyclidine Screen Neg (NEGATIVE) Urine Amphetamines Screen Neg (NEGATIVE) Urine Benzodiazepines Screen Neg (NEGATIVE) Urine Cocaine Screen Neg (NEGATIVE) Urine Cannabinoids Screen Neg (NEGATIVE) Erythrocyte Sedimentation Rate 24 mm/hr (0-20) Lactic Acid Level 1.9 mmol/L (0.4-2.0) Total Bilirubin 0.4 mg/dL (0.2-1.0) Aspartate Amino Transferase (AST) 24 U/L (13-40) Alanine Aminotransferase (ALT) 44 U/L (7-40) Alkaline Phosphatase 110 U/L (46-116) Troponin I High Sensitivity < 3 ng/L (</=34) Total Protein 7.4 g/dL (5.7-8.2) Albumin 4.6 g/dL (3.2-4.8) Monoscreen Negative Influenza Type A Antigen Negative (Negative) Influenza Type B Antigen Negative (Negative) SARS-CoV-2 Antigen (Rapid) Negative (NEGATIVE) Other Laboratory Tests 07/10/24 05:13 07/09/24 03:21 Brief Hx & Hospital Course: Patient is a 39-year-old female with with a recent history of UTI managed with Bactrim a week ago, presented to the ED today with persistent fever. Patient mentioned that for the past couple of days he still be feeling unwell some having fevers. Yesterday he went to work and at work was feeling feverish measure his blood his body temperature which was 1021. He also mentioned having a mild suprapubic tenderness and tachycardia therefore patient decided to come in to be re-evaluated gain. Patient denies any chest pain flu-like symptoms; however he did have nausea but not to the point of vomiting. Urinalysis was clear of any infection, blood culture and urine cultures pending. Patient also mentioned of late, she has been having joint pains in his ankles. In the ED, her temperature read 100.8 with tachycardia. Sepsis Bacteriuria Fever of unknown origin UTI right flank pain Morbid obesity Admit patient for further evaluation Check RAMEZ, comprehensive Infectious disease workup such as HIV, hepatitis, VDRL To obtain blood and urine culture Start antibiotics cefepime and vancomycin discharged to home with Bactrim Condition at Discharge: Fair Final Diagnosis/Problems List see above Discharge Disposition: Home Discharge Instruct/Medications Diet: Cardiac 2g Na,low cholest Activity: No Restrictions, As Tolerated Discharge Statement: "Patient was advised to return to the ER or call 911 if any headaches, dizziness, shortness of breath, chest pain, abdominal pain, bleeding, fevers, or worsening of medical condition. Patient was counseled about treatment plan, medications, possible side effects, patientverbalized understanding. All questions were answered to the best of my ability. This discharge took greater then 30 minutes in planning, reviewing documentation, counseling the patient, and discussing with other team members." ASSESSMENT ASSESSMENT Assessment Date of Service: Jul 10, 2024 Billing Provider: GABRIELLA JIM DO Common Visit Codes: [id number] DISCH DAY >30min GABRIELLA JIM DO Jul 10, 2024 15:20
[2024-07-10 15:40] VITALS: BP 116/69; PULSE 83; RESP 16; TEMP 97.7; O2SAT 97
[2024-07-11 10:47] LABS: Hepatitis A Ab IgM Negative
[2024-07-11 10:48] LABS: Hepatitis B Core IgM Negative (Negative); Hepatitis B Surface Antigen Negative (Negative); Hepatitis C Antibody Negative (Negative)
[2024-07-11 10:52] LABS: Hepatitis B Surface Antigen Negative (Negative); Hepatitis C Antibody Negative (Negative)
--- NOTE | 2024-07-11 13:15 | ECG ---
[facility] Test Date: 2024-07-08 Test Time: 22:16:11 Pat Name: ANTELMO RECINOS Department: [facility]AGE Room: [id number] Gender: F Harmonic Analyst: ESTELA : 1985 Requested By: SHAGGY TIM Order Number: [id number] Reading MD: Measurements Intervals [place] Rate: 106 P: 61 DC: 148 QRS: 83 QRSD: 97 T: 3 QT: 356 QTc: 473 Interpretive Statements Sinus tachycardia RSR' in V1 or V2, probably normal variant Borderline T wave abnormalities Baseline wander in lead(s) V3,V4,V5,V6 Please click the below link to view image of tracing.
[2024-07-12 00:06] LABS: Chlamydia Trachomatis, NAA Negative (Negative); Neisseria gonorrhoeae, NAA Negative (Negative)
[2024-07-12 19:06] LABS: Anti-Centromere B Antibody <0.2 AI (0.0-0.9); Anti-Jo-1 Antibody <0.2 AI (0.0-0.9); Anti-dsDNA Antibody <1 IU/mL (0-9); Antichromatin Antibody <0.2 AI (0.0-0.9); Antiscleroderma-70 Antibody <0.2 AI (0.0-0.9); RNP Antibody 1.5 AI (0.0-0.9); Sjogren's Anti-SS-A Antibody <0.2 AI (0.0-0.9); Sjogren's Anti-SS-B Antibody <0.2 AI (0.0-0.9); Smith Antibody <0.2 AI (0.0-0.9)
== END 2024-07-10 14:17 | disposition home or self-care (01) | DRG 872 ==
LOC: ER 16:17 → OVERFLOW 22:12 → EAST 07-09 16:02
PROVIDERS: ADMIT Internal Medicine; ATTEND Internal Medicine
DX: A41.9 Sepsis, unspecified organism (principal); N39.0 Urinary tract infection, site not specified; Z68.42 Body mass index [BMI] 45.0-49.9, adult; Z20.822 Contact with and (suspected) exposure to COVID-19; E66.01 Morbid (severe) obesity due to excess calories; K75.9 Inflammatory liver disease, unspecified; K21.9 Gastro-esophageal reflux disease without esophagitis; Z90.49 Acquired absence of other specified parts of digestive tract; Z79.899 Other long term (current) drug therapy
CPT/HCPCS: 36415; 71045; 80048; 80053; 80074; 80202; 80307; 81001; 81025; 82565; 83516; 83605; 84484; 85007; 85025; 85027; 85652; 86141; 86225; 86235; 86308; 86703; 86803; 87040; 87070; 87081; 87086; 87205; 87340; 87426; 87804; 93005; 96365; G0378

== ENCOUNTER 2024-07-11 19:16 | Emergency (ER) | payer BC ==
[~2024-07-11] VITALS: Ht 165.1 cm; Wt 122.5 kg
[~2024-07-11 19:16] MED LIST changes: -CEPH-510 PO
[2024-07-11 20:39] LABS: Urine Bacteria None Seen /hpf (None Seen)
[2024-07-11 20:53] LABS: Urine Blood Negative /uL (Negative); Urine Clarity Clear (Clear); Urine Color Light-Yellow (Yellow); Urine Protein, UAD Negative (Negative); Urine Squamous Epithelial Cell FEW /hpf (<5); Urine Urobilinogen Normal (Negative); Urine WBC 3 /HPF (0-5)
[2024-07-11 21:13] LABS: Hematocrit 37.8 % (36.0-46.0); Mean Corpuscular Hemoglobin 31.7 pg (28.0-32.0); Mean Corpuscular Hgb Conc. 34.5 g/dL (32.0-36.0); Mean Corpuscular Volume 91.9 fL (80.0-100.0); Platelet Count (auto) 149 10^3/uL (140-450); Red Blood Cells 4.11 10^6/uL (4.0-5.20); Red Cell Distribution Width 13.4 % (11.8-14.3); White Blood Cell 10.8 10^3/uL (4.4-10.8)
[2024-07-11 21:16] LABS: Basophils % (manual) 0 (0.0-2.0); Blast Cells 0; Eosinophils % (manual) 0 (0-7); Myelocytes % 0; Promyelocytes % 0; Reactive Lymphocytes 0
--- NOTE | 2024-07-11 21:18 | DVH ---
CHEST RADIOGRAPH Indication: body pain Technique: Single frontal view of the chest was obtained COMPARISON: XY CHEST PORTABLE on DOS: 07/08/24, XY CHEST PORTABLE on DOS: 10/23/23 FINDINGS: Lines and Tubes: None Lungs: Clear Pleura: No effusion. No pneumothorax. Cardiomediastinal contours: Unremarkable Bones: Unremarkable IMPRESSION: No abnormality.
[2024-07-11 21:25] LABS: Chloride 99 mmol/L (98-107); Potassium 3.9 mmol/L (3.5-5.1); Sodium 137 mmol/L (136-145)
[2024-07-11 21:26] LABS: Anion Gap 10 (5-15); Carbon Dioxide 28 mmol/L (20-31)
[2024-07-11 21:27] LABS: Calcium 9.9 mg/dL (8.7-10.4)
[2024-07-11 21:32] LABS: BUN/Creatinine Ratio 17.6 (10.0-20.0); Blood Urea Nitrogen 13 mg/dL (9-23)
[2024-07-11 21:37] LABS: Glucose 156 mg/dL (74-106)
[2024-07-11 21:44] LABS: Anisocytosis Moderate; Band Neutrophils % (manual) 11; Lymphocytes % (manual) 2 (10.0-50.0); Macrocytosis Slight; Metamyelocytes % 1; Monocytes % (manual) 5 (0-12); Platelet Estimate Adequate
--- NOTE | 2024-07-11 22:06 | ED.PDOC ---
History of Present Illness HPI Comments 39 year-old, morbidly obese female, with a history of bacteriuria, GERD, thyroid disease, sepsis, and UTI's, presents with c/o chills, generalized bodyaches, and headaches, today. Patient endorses on returning to the ED following last encounter on July 08, 2024, due to return of same symptoms within the past few days that she was seen and admitted for, initially, then. She reports on headaches being more severe then previous visit and endorses also on noticing occasional right knee pain. Patient reports no additional significant life events following previous admission discharge aside from Bactrim medication use. She denies any chest pain, shortness of breath, fever, or urinary symptoms at this time. Chief Complaint: Body Pain Time Seen by MD: 20:43 Primary Care Provider: LATISHA VUONG Reviewed Notes: Nurses Notes, Medications, Allergies Allergies: Coded Allergies: Sammy Aponte (Verified Allergy, Intermediate, 02/17/23) Home Meds Active Scripts Sulfamethoxazole W/Trimethopri (Bactrim Ds Tablet) 1 Tab Tb, 1 TAB PO BID for 5 Days, #10 TAB Prov:GABRIELLA JIM DO 07/10/24 Phenazopyridine HCl (Phenazopyridine Hydrochlo) 200 Mg Tab, 200 MG PO TID, #6 TAB Prov:FARRUKH MAY 06/30/24 Sulfamethoxazole W/Trimethopri (Bactrim Ds Tablet) 1 Tab Tb, 1 TAB PO BID for 10 Days, #20 TAB Prov:FARRUKH MAY 06/30/24 Ondansetron Odt 4MG Tab (ZOFRAN PO) 4 Mg Tb, 4 MG PO Q6HP PRN, #20 TAB ODT TAB-DISSOLVE IN MOUTH, THEN SWALLOW Prov:CHEO EPPS PAC 10/23/23 Benzonatate (Benzonatate) 100 Mg Cap, 1 CAP PO TID, #20 CAP Prov:CHEO EPPS PAC 10/23/23 Omeprazole (Omeprazole) 20 Mg Tab, 20 MG PO DAILY for 21 Days, #21 TAB Prov:CHEO EPPS PAC 10/23/23 Ascorbic Acid (VITAMIN C TABLET) 500 Mg Tb, 1 TAB PO DAILY, #30 TAB 3 Refills take with iron pill Prov:CRISTHIAN GALLEGOS CNM 11/29/22 Ferrous Sulfate (FERROUS SULFATE) 325 Mg Tb, 1 TAB PO DAILY, #30 TAB 3 Refills Prov:CRISTHIAN GALLEGOS [facility] 11/29/22 Ibuprofen Micronized (MOTRIN TABLET) 600 Mg Tb, 600 MG PO Q6HP PRN for 15 Days, #60 TAB Prov:CRISTHIAN GALLEGOS [facility] 11/28/22 Docusate Sodium (Docusate Sodium) 100 Mg Cap, 100 MG PO HS PRN for 30 Days, #30 CAP 1 Refill Prov:CRISTHIAN GALLEGOS [facility] 11/28/22 Acetaminophen (Acetaminophen) 325 Mg Tab, 650 MG PO Q6HP PRN for 10 Days, #80 TAB Prov:CRISTHIAN GALLEGOS [facility] 11/28/22 Acetaminophen (Acetaminophen) 500 Mg Tab, 500 MG PO QIDP, #30 TAB 0 Refills Prov:RUBIN RUSSELL 04/01/22 Reported Medications Vit W/ Ferrous Fumara ( One Daily) Daily Tab, 1 TAB PO DAILY, #90 TAB 3 Refills 09/13/22 Multiple Vitamins W/ Minerals (Multivitamin Women) 1 Tab Tab, 1 TAB PO DAILY for SUPPLEMENT 01/08/22 Cholecalciferol (VITAMIN D3) 2,000 Unit Tab, 1 TAB PO DAILY for SUPPLEMENT 01/08/22 Ibuprofen (Ibuprofen) 400 Mg Tab, 400 MG PO Q4HR PRN for PAIN SCALE 1 THRU 6 01/08/22 Albuterol Sulfate (VENTOLIN MDI) 90 Mcg Ih, 1-2 PUFF IN Q6HR PRN for SHORTNESS OF BREATH 01/08/22 Fexofenadine Hydrochloride (RONAL ALLERGY) 60 Mg Tab, 60 MG PO DAILY for ALLERGIES 01/08/22 Discontinued Scripts Cephalexin ( Keflex 500) 500 Mg Cap, 1 CAP PO QID for 7 Days, #28 CAP 0 Refills Prov:RUBIN RUSSELL 04/01/22 Information Source: Patient Mode of Arrival: Ambulatory Severity: Moderate Timing: Days Duration: Since onset Prehospital treatment: None Past Medical History PAST MEDICAL HISTORY: GERD, Thyroid, UTI'S Past Medical History (Other): Sepsis, bacteriuria, morbid obesity Surgical History: Cholecystectomy 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 Family History Family History: Unknown Social History Smoker: Non-Smoker Alcohol: Denies ETOH Use Drugs: Denies Drug Use Lives In: Home All Other Systems: Reviewed and Negative (Comprehensive systems review obtained and negative except for what is stated in the HPI.) Physical Exam General Appearance: No Apparent Distress, Obese HEENT: Normal ENT Inspection, Pharynx Normal, TMs Normal Neck: Full Range of Motion, Non-Tender, Normal, Normal Inspection Respiratory: Chest Non-Tender, Lungs Clear, No Accessory Muscle Use, No Respiratory Distress, Normal Breath Sounds Cardiovascular: No Edema, No JVD, No Murmur, No Gallop, Normal Peripheral Pulses, Regular Rate/Rhythm Breast Exam: Deferred Gastrointestinal: No Organomegaly, Non Tender, No Pulsatile Mass, Normal Bowel Sounds, Soft Genitalia: Deferred Pelvic: Deferred Rectal: Deferred Extremities: No calf tenderness, Normal capillary refill, Normal inspection, Normal range of motion, Non-tender, No pedal edema Musculoskeletal : Apperance: Normal Neurologic: Alert, gravity prospecting observer helper II-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 Was a procedure done?: No Differential Dx Considerations may include: Viral syndrome, pneumonia, urinary tract infection, drug reaction X-Ray, Labs, Meds, VS Vital Signs Date Time Temp Pulse Resp B/P (MAP) Pulse Ox O2 Delivery O2 Flow Rate FiO2 07/11/24 22:07 99.4 114 16 135/64 (87) 94 99.4 07/11/24 19:33 120 07/11/24 19:23 98.6 130 20 140/78 (98) 100 98.6 Lab Test 07/11/24 20:53 07/11/24 19:28 Range/Units White Blood Count 10.8 # 4.4-10.8 10^3/uL Red Blood Count 4.11 4.0-5.20 10^6/uL Hemoglobin 13.0 # 12.2-16.2 g/dL Hematocrit 37.8 # 36.0-46.0 % Mean Corpuscular Volume 91.9 80.0-100.0 fL Mean Corpuscular Hemoglobin 31.7 28.0-32.0 pg Mean Corpuscular Hemoglobin Concent 34.5 32.0-36.0 g/dL Red Cell Distribution Width 13.4 11.8-14.3 % Platelet Count 149 140-450 10^3/uL Mean Platelet Volume 7.8 6.9-10.8 fL Neutrophils (%) (Auto) 37.0-80.0 % Lymphocytes (%) (Auto) 10.0-50.0 % Monocytes (%) (Auto) 0.0-12.0 % Basophils (%) (Auto) 0.0-2.0 % Neutrophils # (Auto) 1.6-8.6 10 ^3/uL Lymphocytes # (Auto) 0.4-5.4 10 ^3/uL Monocytes # (Auto) 0-1.3 10 ^3/uL Differential Total Cells Counted 100.0 100 Neutrophils % (Manual) 81 H 37.0-80.0 Band Neutrophils % (Manual) 11 Lymphocytes % (Manual) 2 L 10.0-50.0 Monocytes % (Manual) 5 0-12 Eosinophils % (Manual) 0 0-7 Basophils % (Manual) 0 0.0-2.0 Metamyelocytes % (manual) 1 Myelocytes % (Manual) 0 Promyelocytes % (Manual) 0 Blast Cells % (Manual) 0 Reactive Lymphocytes 0 Platelet Estimate Adequate Anisocytosis (manual) Moderate Macrocytosis Slight Sodium Level 137 136-145 mmol/L Potassium Level 3.9 3.5-5.1 mmol/L Chloride Level 99 98-107 mmol/L Carbon Dioxide Level 28 20-31 mmol/L Anion Gap 10 5-15 Blood Urea Nitrogen 13 9-23 mg/dL Creatinine 0.74 0.550-1.02 mg/dL Glomerular Filtration Rate Calc 105 >90 mL/min BUN/Creatinine Ratio 17.6 10.0-20.0 Serum Glucose 156 H 74-106 mg/dL Calcium Level 9.9 8.7-10.4 mg/dL Urine Color Light-yellow Yellow Urine Clarity Clear Clear Urine pH 7.0 5.0-9.0 Urine Specific Armstrong 1.010 1.001-1.035 Urine Protein Negative Negative Urine Ketones Negative Negative Urine Blood Negative Negative /uL Urine Nitrite Negative Negative Urine Bilirubin Negative Negative Urine Urobilinogen Normal Negative mg/dL Urine Leukocyte Esterase 1+ Negative /uL Urine RBC 1 0 - 4 /hpf Urine Microscopic WBC 3 0-5 /HPF Urine Squamous Epithelial Cells Few <5 /hpf Urine Bacteria None seen None Seen /hpf Urine Glucose Normal Normal mg/dL [facility] [id number] [facility] [address] Ph: [phone] DIAGNOSTIC IMAGING Diagnostic Imaging Report : [id number] Signed PATIENT: ANTELMO RECINOS ACCT: [id number] UNIT: [id number] : 1985 LOC: ER ROOM / BED: / AGE / SEX: 39 / F ADM STATUS: REG ER SERVICE 28 ORDERING PHYSICIAN: SAMUEL MAYA MD PROCEDURE(s): CXRP - CHEST PORTABLE REASON: body pain ORDER NUMBER(s): [id number], ACCESSION NUMBER(s): [id number] CHEST RADIOGRAPH Indication: body pain Technique: Single frontal view of the chest was obtained COMPARISON: XY CHEST PORTABLE on DOS: 07/08/24, XY CHEST PORTABLE on DOS: 10/23/23 FINDINGS: Lines and Tubes: None Lungs: Clear Pleura: No effusion. No pneumothorax. Cardiomediastinal contours: Unremarkable Bones: Unremarkable IMPRESSION: No abnormality. ATED BY: STONE GARCIA MD DICTATED DATE/TIME: 07/11/242115 SIGNED BY: STONE GARCIA MD SIGNED DATE/TIME: 07/11/242115 CC: Time of 1ST Reevaluation: 21:13 Reevaluation 1ST: Unchanged Patient Education/Counseling: Diagnosis, Treatment Family Education/Counseling: No Family Present Additional Information Previous visit documents reviewed: July 08, 2024 encounter for fever with recent UTI The following tests were ordered, and results were reviewed by me: CXR, UA, BMP, CBC, EKG Additional Information was gathered from interviewing the following independent historians: n/a I reviewed and agreed with the following test results read by other providers: CXR I discussed treatment and results with medical personnel and: Patient Departure 1 Departure Time of Disposition: 22:46 (Patient's workup sounds most consistent with a viral syndrome. Discharge patient home with outpatient follow up) Impression: Primary Impression: Viral syndrome Disposition: 01 HOME / SELF CARE / HOMELESS Condition: Stable Additional Instructions: Your workup today is most consistent with a viral syndrome. You likely have a viral illness. It is important to stay well rested and well hydrated. You can take Tylenol and Motrin as needed for pain and fever. For a sore throat you can drink warm tea with honey. You can take [id number] pseudoephedrine for nasal congestion. He should follow up with your regular doctor within 1 week to ensure you are doing better. If your symptoms worsen or you have any other concerns please return to the emergency room. Discharged With: Self Critical Care Note Critical Care Time?: No Stability Stability form required: No Heart Score Heart Score: Heart Score Response (Comments) Value History N/A 0 EKG N/A 0 Age N/A 0 Risk Factors N/A 0 Troponin N/A 0 Total 0 I personally scribed for SAMUEL MAYA MD ([email or web address]) on 07/11/24 at 22:06. Electronically submitted by Georgi Mancilla ([email or web address]). SAMUEL MAYA MD Jul 11, 2024 22:06
[2024-07-11 22:07] VITALS: BP 135/64; TEMP 99.4
[2024-07-11 23:15] VITALS: PULSE 100; RESP 16; O2SAT 100
--- NOTE | 2024-07-12 08:48 | ECG ---
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
== END 2024-07-11 23:17 | disposition home or self-care (01) ==
LOC: ER 19:16
DX: B34.9 Viral infection, unspecified (principal); E03.9 Hypothyroidism, unspecified; K21.9 Gastro-esophageal reflux disease without esophagitis; E66.01 Morbid (severe) obesity due to excess calories; Z79.899 Other long term (current) drug therapy; Z87.440 Personal history of urinary (tract) infections; Z90.49 Acquired absence of other specified parts of digestive tract
CPT/HCPCS: 36415; 71045; 80048; 81001; 85007; 85027; 93005

== ENCOUNTER 2024-12-20 22:20 | Inpatient (IN) | payer BC, OTHER ==
[~2024-12-20] VITALS: Ht 165.1 cm; Wt 119.1 kg
[2024-12-20 23:25] LABS: Hematocrit 38.9 % (36.0-46.0); Hemoglobin 13.2 g/dL (12.2-16.2); Mean Corpuscular Hemoglobin 31.1 pg (28.0-32.0); Mean Corpuscular Volume 92.0 fL (80.0-100.0); Nucleated Red Blood Cells % 0.0 %
--- NOTE | 2024-12-20 23:25 | ED.PDOC ---
History of Present Illness HPI Comments 39 year old female presents to the ED with a chief complaint of flu like symptoms onset 12/02/2024. Patient states she began experiencing flu like symptoms including nasal congestion, muscle aches, bilateral ear pain, fevers on 12/02/[address] [place] 12/04/2024. She states she tested negative for Influenza A/B as well as COVID at that time, was discharged with medication. She has been taking medication since then, with no improvement. She began experiencing fever since noon, took Tylenol 500 mg at 16:00, another 500 mg at 20:00. Upon ED arrival temperature was 102.6 F oral. No other symptoms or modifying factors present at this time. Chief Complaint: Flu like Time Seen by MD: 23:10 Primary Care Provider: LATISHA VUONG Reviewed Notes: Medications, Allergies Allergies: Coded Allergies: Sammy Aponte (Verified Allergy, Intermediate, 02/17/23) Home Meds Active Scripts Sulfamethoxazole W/Trimethopri (Bactrim Ds Tablet) 1 Tab Tb, 1 TAB PO BID for 5 Days, #10 TAB Prov:GABRIELLA JIM DO 07/10/24 Phenazopyridine HCl (Phenazopyridine Hydrochlo) 200 Mg Tab, 200 MG PO TID, #6 TAB Prov:FARRUKH MAY 06/30/24 Sulfamethoxazole W/Trimethopri (Bactrim Ds Tablet) 1 Tab Tb, 1 TAB PO BID for 10 Days, #20 TAB Prov:FARRUKH MAY 06/30/24 Ondansetron Odt 4MG Tab (ZOFRAN PO) 4 Mg Tb, 4 MG PO Q6HP PRN, #20 TAB ODT TAB-DISSOLVE IN MOUTH, THEN SWALLOW Prov:CHEO EPPS PAC 10/23/23 Benzonatate (Benzonatate) 100 Mg Cap, 1 CAP PO TID, #20 CAP Prov:CHEO EPPS PAC 10/23/23 Omeprazole (Omeprazole) 20 Mg Tab, 20 MG PO DAILY for 21 Days, #21 TAB Prov:CHEO EPPS PAC 10/23/23 Ascorbic Acid (VITAMIN C TABLET) 500 Mg Tb, 1 TAB PO DAILY, #30 TAB 3 Refills take with iron pill Prov:CRISTHIAN GALLEGOS CNM 11/29/22 Ferrous Sulfate (FERROUS SULFATE) 325 Mg Tb, 1 TAB PO DAILY, #30 TAB 3 Refills Prov:CRISTHIAN GALLEGOS [facility] 11/29/22 Ibuprofen Micronized (MOTRIN TABLET) 600 Mg Tb, 600 MG PO Q6HP PRN for 15 Days, #60 TAB Prov:CRISTHIAN GALLEGOS [facility] 11/28/22 Docusate Sodium (Docusate Sodium) 100 Mg Cap, 100 MG PO HS PRN for 30 Days, #30 CAP 1 Refill Prov:CRISTHIAN GALLEGOS [facility] 11/28/22 Acetaminophen (Acetaminophen) 325 Mg Tab, 650 MG PO Q6HP PRN for 10 Days, #80 TAB Prov:CRISTHIAN GALLEGOS [facility] 11/28/22 Acetaminophen (Acetaminophen) 500 Mg Tab, 500 MG PO QIDP, #30 TAB 0 Refills Prov:RUBIN RUSSELL 04/01/22 Reported Medications Vit W/ Ferrous Fumara ( One Daily) Daily Tab, 1 TAB PO DAILY, #90 TAB 3 Refills 09/13/22 Multiple Vitamins W/ Minerals (Multivitamin Women) 1 Tab Tab, 1 TAB PO DAILY for SUPPLEMENT 01/08/22 Cholecalciferol (VITAMIN D3) 2,000 Unit Tab, 1 TAB PO DAILY for SUPPLEMENT 01/08/22 Ibuprofen (Ibuprofen) 400 Mg Tab, 400 MG PO Q4HR PRN for PAIN SCALE 1 THRU 6 01/08/22 Albuterol Sulfate (VENTOLIN MDI) 90 Mcg Ih, 1-2 PUFF IN Q6HR PRN for SHORTNESS OF BREATH 01/08/22 Fexofenadine Hydrochloride (RONAL ALLERGY) 60 Mg Tab, 60 MG PO DAILY for ALLERGIES 01/08/22 Information Source: Patient Mode of Arrival: Ambulatory Severity: Moderate Timing: Weeks Duration: Since onset Prehospital treatment: Pain Meds Past Medical History PAST MEDICAL HISTORY: GERD, Thyroid, UTI'S Surgical 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: 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 Family History Family History: Unknown Social History Smoker: Non-Smoker Alcohol: Denies ETOH Use Drugs: Denies Drug Use Lives In: Home Constitutional: reports: fever; denies: chills, diaphoresis, fatigue, malaise, sweats, weakness, others EENTM: reports: ear pain, nose congestion; denies: blurred vision, double vision, ear bleeding, ear discharge, ear drainage, ear ringing, eye pain, eye redness, hearing loss, mouth pain, mouth swelling, nasal discharge, nose bleeding, nose pain, photophobia, tearing, throat pain, throat swelling, voice changes, others Respiratory: denies: cough, hemoptysis, orthopnea, SOB at rest, shortness of breath, SOB with excertion, stridor, wheezing, others Cardiovascular: denies: chest pain, dizzy spells, diaphoresis, Dyspnea on exertion, edema, irregular heart beat, left arm pain, lightheadedness, palpitations, PND, syncope, others Gastrointestinal: denies: abdomen distended, abdominal pain, blood streaked bowels, constipated, diarrhea, dysphagia, difficulty swallowing, hematemesis, melena, nausea, poor appetite, poor fluid intake, rectal bleeding, rectal pain, vomiting, others Genitourinary: denies: abnormal vagina bleeding, burning, dyspareunia, dysuria, flank pain, frequency, hematuria, incontinence, pain, , vagina discharge, urgency, others Neurological: denies: dizziness, fainting, headache, left sided numbness, left sided weakness, numbness, paresthesia, pre-existing deficit, right sided numbness, right sided weakness, seizure, speech problems, tingling, tremors, weakness, others Musculoskeletal: denies: back pain, gout, joint pain, joint swelling, muscle pain, muscle stiffness, neck pain, others Integumetry: denies: bruises, change in color, change in hair/nails, dryness, laceration, lesions, lumps, rash, wounds, others Allergic/Immunocompromised: denies: Difficulty Healing, Frequent Infections, Hives, Itching, others Hematologic/Lymphatic: denies: anemia, blood clots, easy bleeding, easy bruising, swollen glands, others Endocrine: denies: excessive hunger, excessive sweating, excessive thirst, excessive urination, flushing, intolerance to cold, intolerance to heat, unexplained weight gain, unexplained weight loss, others Psychiatric: denies: anxiety, bipolar disorder, depression, hopeless, panic disorder, schizophrenia, sleepless, suicidal, others All Other Systems: Reviewed and Negative Physical Exam General Appearance: Normal HEENT: Normal ENT Inspection, Pharynx Normal, TMs Normal Neck: Full Range of Motion, Non-Tender, Normal, Normal Inspection Respiratory: Chest Non-Tender, Lungs Clear, No Accessory Muscle Use, No Respiratory Distress, Normal Breath Sounds Cardiovascular: No Edema, No JVD, No Murmur, No Gallop, Normal Peripheral Pulses, Regular Rate/Rhythm Breast Exam: Deferred Gastrointestinal: No Organomegaly, Non Tender, No Pulsatile Mass, Normal Bowel Sounds, Soft Genitalia: Deferred Pelvic: Deferred Rectal: Deferred Extremities: No calf tenderness, Normal capillary refill, Normal inspection, Normal range of motion, Non-tender, No pedal edema Musculoskeletal : Apperance: Normal Neurologic: Alert, cable maintainer II-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 Was a procedure done?: No Differential Dx Considerations may include: Sepsis, virus, other infectious etiology, fever of unknown origin X-Ray, Labs, Meds, VS Vital Signs Date Time Temp Pulse Resp B/P (MAP) Pulse Ox O2 Delivery O2 Flow Rate FiO2 12/21/24 01:05 102.0 12/20/24 22:30 102.6 121 20 111/72 95 102.6 Lab Test 12/20/24 22:55 Range/Units White Blood Count 15.9 H 4.4-10.8 10^3/uL Red Blood Count 4.23 4.0-5.20 10^6/uL Hemoglobin 13.2 12.2-16.2 g/dL Hematocrit 38.9 36.0-46.0 % Mean Corpuscular Volume 92.0 80.0-100.0 fL Mean Corpuscular Hemoglobin 31.1 28.0-32.0 pg Mean Corpuscular Hemoglobin Concent 33.8 32.0-36.0 g/dL Red Cell Distribution Width 13.9 11.8-14.3 % Platelet Count 235 140-450 10^3/uL Mean Platelet Volume 8.8 6.9-10.8 fL Neutrophils (%) (Auto) 79.0 37.0-80.0 % Lymphocytes (%) (Auto) 13.2 10.0-50.0 % Monocytes (%) (Auto) 7.1 0.0-12.0 % Eosinophils (%) (Auto) 0.2 0.0-7.0 % Basophils (%) (Auto) 0.5 0.0-2.0 % Neutrophils # (Auto) 12.6 H 1.6-8.6 10 ^3/uL Lymphocytes # (Auto) 2.1 0.4-5.4 10 ^3/uL Monocytes # (Auto) 1.1 0-1.3 10 ^3/uL Eosinophils # (Auto) 0 0-0.8 10 ^3/uL Basophils # (Auto) 0.1 0-0.2 10 ^3/uL Nucleated Red Blood Cells 0.0 % Prothrombin Time 10.5 9.3-11.8 sec Prothrombin Time INR 0.99 0.9-1.15 Activated Partial Thromboplast Time 24.8 24.5-34.5 SEC Sodium Level 138 136-145 mmol/L Potassium Level 3.5 3.5-5.1 mmol/L Chloride Level 103 98-107 mmol/L Carbon Dioxide Level 25 20-31 mmol/L Anion Gap 10 5-15 Blood Urea Nitrogen 10 9-23 mg/dL Creatinine 0.83 0.550-1.02 mg/dL Glomerular Filtration Rate Calc 92 >90 mL/min BUN/Creatinine Ratio 12.0 10.0-20.0 Serum Glucose 157 H 74-106 mg/dL Lactic Acid Level 1.6 0.4-2.0 mmol/L Calcium Level 9.3 8.7-10.4 mg/dL Total Bilirubin 0.4 0.2-1.0 mg/dL Aspartate Amino Transferase (AST) 17 13-40 U/L Alanine Aminotransferase (ALT) 23 7-40 U/L Alkaline Phosphatase 100 46-116 U/L Total Protein 7.4 5.7-8.2 g/dL Albumin 4.5 3.2-4.8 g/dL Current Medications Medications (Trade) Dose Ordered Sig/Neil Route Start Time Stop Time Status Last Admin Ibuprofen (Motrin Tablet) 800 mg ONCE ONCE PO 12/20/24 22:45 12/20/24 22:46 DC 12/21/24 01:05 Lactated Ringer's 1,700 ml @ 1,700 mls/hr ONCE ONCE IV 12/20/24 22:45 12/20/24 23:44 DC 12/21/24 01:06 Time of 1ST Reevaluation: 23:40 Reevaluation 1ST: Unchanged Patient Education/Counseling: Diagnosis, Treatment, Prognosis Family Education/Counseling: No Family Present SEPSIS Sepsis Screen Date sepsis recognized/suspect: Dec 20, 2024 Time Sepsis recognized/suspect: 2229 Recent Procedure: No On Antibiotic Therapy: No Respiratory Rate >20: Yes Heart Rate >90: Yes Temp<36 C (96.8 F) or >38.3 C: Yes SBP <90 or MAP <65 mmHG: No New Acute Mental Status Change: No Is the patient on CPAP, BIPAP,: No Physician Orders Urinalysis (12/20/24 22:44) Accucheck (12/20/24 22:44) Blood Culture (12/20/24 22:44) Cefepime 1gm/ 50ml (Maxipime 1gm/50ml) (12/21/24 06:00) Sepsis Reassesment After Fluid (12/20/24 23:44) Cefepime 1gm/ 50ml (Maxipime 1gm/50ml) (12/20/24 23:00) Chest Portable (12/21/24 00:53) Vital Signs Date Time Temp Pulse Resp B/P (MAP) Pulse Ox O2 Delivery O2 Flow Rate FiO2 12/21/24 01:05 102.0 12/20/24 22:30 102.6 121 20 111/72 95 102.6 Laboratory Tests Test 12/20/24 22:55 Lactic Acid Level 1.6 mmol/L (0.4-2.0) White Blood Count 15.9 10^3/uL (4.4-10.8) H Medications Medications Dose Ordered Sig/Neil Route Start Time Stop Time Status Last Admin Dose Admin Ibuprofen 800 mg ONCE ONCE PO 12/20/24 22:45 12/20/24 22:46 DC 12/21/24 01:05 Lactated Ringer's 1,700 ml @ 1,700 mls/hr ONCE ONCE IV 12/20/24 22:45 12/20/24 23:44 DC 12/21/24 01:06 Departure 1 Departure Time of Disposition: 02:45 (Patient with a concern for sepsis and several weeks of symptoms. We will admit patient further workup and expert consultation) Impression: Primary Impression: Sepsis Qualified Codes: A41.9 - Sepsis, unspecified organism Additional Impressions: Fever of unknown origin Generalized weakness Disposition: 09 ADMITTED INPATIENT Admit to: Med Surg Condition: Serious Critical Care Note Critical Care Time?: Yes Critical care comment: Concern for sepsis Authorized and Performed by: Samuel Bauman MD Total critical care time: Approximately 36 minutes Due to a high probability of clinically significant, life threatening deterioration, the patient required my highest level of preparedness to intervene emergently and I personally spent this critical care time directly and personally managing the patient. This critical care time included obtaining a history; examining the patient; pulse oximetry; ordering and review of studies; arranging urgent treatment with development of a management plan; evaluation of patient's response to treatment; frequent reassessment; and, discussions with other providers. This critical care time was performed to assess and manage the high probability of imminent, life-threatening deterioration that could result in multi-organ failure. It was exclusive of separately billable procedures and treating other patients and teaching time. Please see my other sections and the rest of the note for further information on patient assessment and treatment. Stability Stability form required: No I personally scribed for SAMUEL BAUMAN MD ([email or web address]) on 12/20/24 at 23:25. Elec tronically submitted by Yesenia Arredondo ([email or web address]). SAMUEL BAUMAN MD Dec 20, 2024 23:25
[2024-12-20 23:41] LABS: INR 0.99 (0.9-1.15); Partial Thromboplastin Time 24.8 SEC (24.5-34.5); Prothrombin Time 10.5 sec (9.3-11.8)
[2024-12-20 23:48] LABS: Alanine Aminotransferase 23 U/L (7-40); Albumin 4.5 g/dL (3.2-4.8); Alkaline Phosphatase 100 U/L (46-116); Anion Gap 10 (5-15); BUN/Creatinine Ratio 12.0 (10.0-20.0); Bilirubin, Total 0.4 mg/dL (0.2-1.0); Blood Urea Nitrogen 10 mg/dL (9-23); Calcium 9.3 mg/dL (8.7-10.4); Carbon Dioxide 25 mmol/L (20-31); Chloride 103 mmol/L (98-107); Glucose 157 mg/dL (74-106); Potassium 3.5 mmol/L (3.5-5.1); Sodium 138 mmol/L (136-145); Total Protein 7.4 g/dL (5.7-8.2)
[2024-12-21] MEDS: IBUPROFEN 800 MG TAB PO ONE (01:05)
[2024-12-21] MEDS: LACTATED RINGER'S 1,700 ML IV ONE (01:06)
--- NOTE | 2024-12-21 01:30 | DVH ---
EXAM: XY CHEST PORTABLE CLINICAL HISTORY: sob TECHNIQUE: Single AP view of the chest WID: COMPARISON: XY CHEST TWO VIEWS ROUTINE on DOS: 12/20/24 FINDINGS: Lines and tubes: None Chest: The heart size and pulmonary vasculature is within normal limits. No pleural effusion, pneumothorax, or consolidation. The osseous structures are grossly intact. IMPRESSION: 1. No acute cardiopulmonary abnormality.
[2024-12-21] MEDS: CEFEPIME 1GM/50ML 50 ML IV ONE (03:02)
[2024-12-21] MEDS: ACETAMINOPHEN 325 MG TAB PO ONE (03:07)
[2024-12-21] MEDS ORDERED: HYDROcodone-ACET 5/325MG TAB PO PRN (04:00)
[2024-12-21] MEDS ORDERED: DOCUSATE SOD 100 MG CAP PO PRN (04:00)
[2024-12-21] MEDS ORDERED: ONDANSETRON HCL 4 MG/2 ML VIAL IV PRN (04:00)
[2024-12-21] MEDS ORDERED: VANCOMYCIN PER PHARMACY 0 MG IV SCH (04:15)
[2024-12-21 04:59] LABS: INR 1.03 (0.9-1.15); Prothrombin Time 10.9 sec (9.3-11.8)
--- NOTE | 2024-12-21 05:26 | DVHHPRES ---
History of Present Illness Resident Creating Document: MAGDA MCGEE RESIDENT History of Present Illness Brooke Garza is a 39-year-old female with no significant past medical history came to the ED with chief complaints of generalized weakness, mild shortness of breath,, chills, generalized body pains, productive cough with clear sputum, flu-like symptoms since November 30. Patient states that she began having symptoms of nasal congestion, bilateral ear pain and was tested at [facility] with negative influenza, COVID. She states she took medication but did not help. She also states that she had COVID 5-6 times in the past. On arrival patient had a temperature of 102.6 F , was tachycardic. Patient admitted for further management. Past surgical history: Cholecystectomy Family history: Reviewed, noncontributory Personal history: Denies smoking, drinks occasionally, denies any drug use Lives with: Family PCP: Dr. Goldsmith Review of Systems Constitutional: Yes: Chills, Sweats; No: Fever, Weakness, Malaise, Other Eyes: No: Pain, Vision change, Conjunctivae inflammation, Eyelid inflammation, Other, Redness ENT: No: Ear pain, Ear discharge, Nose pain, Nose discharge, Nose congestion, Mouth pain, Mouth swelling, Throat pain, Throat swelling, Other Respiratory: Cough, Shortness of breath, Sputum; No: Dry, SOB with excertion, Wheezing, Hemoptysis, Pleuritic Pain, Wheezing, Other Cardiovascular: No: Chest Pain, Palpitations, Orthopnea, Paroxysmal Noc. Dyspnea, Edema, Lt Headedness, Other Gastrointestinal: No: Nausea, Vomiting, Abdominal Pain, Diarrhea, Constipation, Melena, Hematochezia, Other Genitourinary: No Dysuria, No Frequency, No Incontinence, No Hematuria, No Retention, No Other Musculoskeletal: other (Joint pains); No: neck pain, shoulder pain, arm pain, back pain, hand pain, leg pain, foot pain Skin: No: Rash, Lesions, Jaundice, Bruising, Other Neurological: No: Weakness, Numbness, Incoordination, Change in speech, Confusion, Seizures, Other Allergies: Coded Allergies: Sammy Aponte (Verified Allergy, Intermediate, 02/17/23) Medications Current Medications Medications Dose Ordered Sig/Neil Route Start Time Stop Time Status Last Admin Dose Admin Cefepime HCl 50 ml @ 12.5 mls/hr Q8HR IV 12/21/24 06:00 Acetaminophen/ Hydrocodone Bitart 1 tab Q4HP PRN PO 12/21/24 04:00 Ondansetron HCl 4 mg Q4HP PRN IV 12/21/24 04:00 Docusate Sodium 100 mg BIDPRN PRN PO 12/21/24 04:00 Vancomycin HCl 0 ml @ 0 mls/hr UD IV 12/21/24 04:15 UNV Vancomycin HCl 250 ml @ 250 mls/hr Q1H IV 12/21/24 04:30 12/21/24 06:29 Exam Vital Signs Vital Signs Date Time Temp Pulse Resp B/P (MAP) Pulse Ox O2 Delivery O2 Flow Rate FiO2 12/21/24 01:05 102.0 12/20/24 22:30 121 20 111/72 95 Exam General: Patient alert and oriented in person, place and time. Patient following commands. In mild distress HEENT: Normocephalic, atraumatic, moist mucous membranes, Respiratory/pulmonary: Clear lungs bilaterally, vesicular murmurs present in dereck ost all lung he, no associated crackles or wheezes. Cardiovascular: Normal heart sounds S1 and S2 with no associated murmurs Abdomen: Abdomen nondistended, there is no pain to palpation in any of the abdominal quadrants, no palpable masses. Extremities: There is no peripheral edema present at the lower extremities. Peripheral Pulses: 3+ Radial (R). 3+ Radial (L). 3+ Dorsalis pedis (R). 3+ Dorsalis pedis(L) Skin: No rashes or pruritus, there is no sacral edema present at this time. Neurological: Intact cranial nerves with no focal neurologic deficits Labs/Xrays Labs Test 12/21/24 04:10 12/20/24 22:55 Range/Units Prothrombin Time 10.9 9.3-11.8 sec Prothrombin Time INR 1.03 0.9-1.15 Lactic Acid Level 1.0 0.4-2.0 mmol/L White Blood Count 15.9 H 4.4-10.8 10^3/uL Red Blood Count 4.23 4.0-5.20 10^6/uL Hemoglobin 13.2 12.2-16.2 g/dL Hematocrit 38.9 36.0-46.0 % Mean Corpuscular Volume 92.0 80.0-100.0 fL Mean Corpuscular Hemoglobin 31.1 28.0-32.0 pg Mean Corpuscular Hemoglobin Concent 33.8 32.0-36.0 g/dL Red Cell Distribution Width 13.9 11.8-14.3 % Platelet Count 235 140-450 10^3/uL Mean Platelet Volume 8.8 6.9-10.8 fL Neutrophils (%) (Auto) 79.0 37.0-80.0 % Lymphocytes (%) (Auto) 13.2 10.0-50.0 % Monocytes (%) (Auto) 7.1 0.0-12.0 % Eosinophils (%) (Auto) 0.2 0.0-7.0 % Basophils (%) (Auto) 0.5 0.0-2.0 % Neutrophils # (Auto) 12.6 H 1.6-8.6 10 ^3/uL Lymphocytes # (Auto) 2.1 0.4-5.4 10 ^3/uL Monocytes # (Auto) 1.1 0-1.3 10 ^3/uL Eosinophils # (Auto) 0 0-0.8 10 ^3/uL Basophils # (Auto) 0.1 0-0.2 10 ^3/uL Nucleated Red Blood Cells 0.0 % Activated Partial Thromboplast Time 24.8 24.5-34.5 SEC Sodium Level 138 136-145 mmol/L Potassium Level 3.5 3.5-5.1 mmol/L Chloride Level 103 98-107 mmol/L Carbon Dioxide Level 25 20-31 mmol/L Anion Gap 10 5-15 Blood Urea Nitrogen 10 9-23 mg/dL Creatinine 0.83 0.550-1.02 mg/dL Glomerular Filtration Rate Calc 92 >90 mL/min BUN/Creatinine Ratio 12.0 10.0-20.0 Serum Glucose 157 H 74-106 mg/dL Calcium Level 9.3 8.7-10.4 mg/dL Total Bilirubin 0.4 0.2-1.0 mg/dL Aspartate Amino Transferase (AST) 17 13-40 U/L Alanine Aminotransferase (ALT) 23 7-40 U/L Alkaline Phosphatase 100 46-116 U/L Total Protein 7.4 5.7-8.2 g/dL Albumin 4.5 3.2-4.8 g/dL Thyroid Stimulating Hormone (TSH) 1.36 0.55-4.78 uIU/mL SEPSIS Sepsis Screen Date sepsis recognized/suspect: Dec 20, 2024 Time Sepsis recognized/suspect: 2229 Recent Procedure: No On Antibiotic Therapy: No Respiratory Rate >20: Yes Heart Rate >90: Yes Temp<36 C (96.8 F) or >38.3 C: Yes SBP <90 or MAP <65 mmHG: No New Acute Mental Status Change: No Is the patient on CPAP, BIPAP,: No Physician Orders Urinalysis (12/20/24 22:44) Accucheck (12/20/24 22:44) Blood Culture (12/20/24 22:44) Cefepime 1gm/ 50ml (Maxipime 1gm/50ml) (12/21/24 06:00) Sepsis Reassesment After Fluid (12/20/24 23:44) Chest Portable (12/21/24 00:53) Admit (12/21/24 03:51) Allergies (12/21/24 03:51) Code Status (12/21/24 03:51) Hydrocodone-Acet 5/325mg Tab (Rattan 5/32 (12/21/24 04:00) Ondansetron Hcl (Zofran) (12/21/24 04:00) Docusate Sodium Capsule (Colace Capsule) (12/21/24 04:00) Complete Blood Count (12/22/24 04:00) Comprehensive Metabolic Panel (12/22/24 04:00) Condition: Serious (12/21/24 03:51) Clear Liq Diet (12/21/24 Breakfast) Bedrest With Bathroom Privileg (12/21/24 03:51) Stat Ekg For Chest Pain (12/21/24 03:51) Rhythm Strips Once Every Shift (12/21/24 03:51) Emergency Dysrhythmia Protocol (12/21/24 03:51) Rapid Influenza A&B (12/21/24 03:57) Covid19 Antigen Ranjana (12/21/24 ) Drug Screen (12/21/24 03:57) Lactic Acid W/ Reflex Order (12/21/24 03:57) Lactated Ringer's (12/21/24 04:15) Vancomycin Per Pharmacy (12/21/24 04:15) Vancomycin 1gm/250ml Kit (12/21/24 04:30) Vancomycin Per Pharmacy Protoc (12/21/24 04:30) Vital Signs Date Time Temp Pulse Resp B/P (MAP) Pulse Ox O2 Delivery O2 Flow Rate FiO2 12/21/24 01:05 102.0 12/20/24 22:30 102.6 121 20 111/72 95 102.6 Laboratory Tests Test 12/20/24 22:55 12/21/24 04:10 Lactic Acid Level 1.6 mmol/L (0.4-2.0) 1.0 mmol/L (0.4-2.0) White Blood Count 15.9 10^3/uL (4.4-10.8) H Medications Medications Dose Ordered Sig/Neil Route Start Time Stop Time Status Last Admin Dose Admin Cefepime HCl 50 ml @ 12.5 mls/hr ONCE ONCE IV 12/20/24 23:00 12/21/24 02:59 DC 12/21/24 03:02 12.5 MLS/HR Ibuprofen 800 mg ONCE ONCE PO 12/20/24 22:45 12/20/24 22:46 DC 12/21/24 01:05 800 MG Lactated Ringer's 1,700 ml @ 1,700 mls/hr ONCE ONCE IV 12/20/24 22:45 12/20/24 23:44 DC 12/21/24 01:06 1,700 MLS/HR Assessment/Plan Assessment/Plan # sepsis likely due to upper respiratory tract infection # rule out COVID/influenza - ordered COVID, influenza test - started on vancomycin, cefepime, - ordered blood culture # diabetes: HbA1c 6.7 - lifestyle modifications # morbid obesity BMI 43.7 -patient counseled on lifestyle modification, diet, exercise for 13 minutes PPI prophylaxis: Pantoprazole 40 mg DVT prophylaxis: Not indicated Goals of care addressed with the patient for more than 27 minutes: Full code status Case discussed with Dr. Stovall, patient and nurse Plan discussed with: Patient My Orders Orders - MAGDA MCGEE RESIDENT Procedure Category Date Status Time Admit ADMIT 12/21/24 Transmitted 03:51 Allergies ANNELIESE 12/21/24 In Process 03:51 Code Status CODE 12/21/24 Transmitted 03:51 Hydrocodone-Acet PHA 12/21/24 In Process 5/325mg Tab (Rattan 04:00 Ondansetron Hcl PHA 12/21/24 In Process (Zofran) 04:00 Docusate Sodium PHA 12/21/24 In Process Capsule (Colace 04:00 Complete Blood Count LAB 12/22/24 Verified 04:00 Comprehensive LAB 12/22/24 Verified Metabolic Panel 04:00 Condition: Serious [facility] 12/21/24 In Process 03:51 Clear Liq Diet DIET 12/21/24 Transmitted Breakfast Bedrest With Bathroom [facility] 12/21/24 In Process Privileg 03:51 Stat Ekg For Chest [facility] 12/21/24 In Process Pain 03:51 Rhythm Strips Once [facility] 12/21/24 In Process Every Shift 03:51 Emergency Dysrhythmia [facility] 12/21/24 In Process Protocol 03:51 Rapid Influenza A&B LAB 12/21/24 Logged 03:57 Covid19 Antigen Ranjana LAB 12/21/24 Logged Drug Screen LAB 12/21/24 Logged 03:57 Lactic Acid W/ Reflex LAB 12/21/24 In Process Order 03:57 Lactated Ringer's [facility] 12/21/24 In Process 04:15 Vancomycin Per PHA 12/21/24 Pending Pharmacy 04:15 Vancomycin 1gm/250ml [facility] 12/21/24 In Process Kit 04:30 Vancomycin Per ANNELIESE 12/21/24 In Process Pharmacy Protoc 04:30 Date of Service: Dec 21, 2024 Billing Provider: MAGDA MCGEE Common Visit Codes: 90900-[id number] INP/OBS CARE (HIGH) Secondary Visit Codes: [id number] CARE PLAN 30 MINUTES MAGDA MCGEE Dec 21, 2024 05:26
[2024-12-21] MEDS: LACTATED RINGER'S 1,000 ML IV ONE (05:34)
[2024-12-21] MEDS: PANTOPRAZOLE 40 MG/10 ML VIAL INJ IV ONE (05:43)
[2024-12-21] MEDS: VANCOMYCIN 1GM/250ML KIT 250 ML IV SCH ×2 (05:43→19:30)
[2024-12-21 05:55] LABS: Hematocrit 37.9 % (36.0-46.0); Hemoglobin 12.7 g/dL (12.2-16.2); Mean Corpuscular Hemoglobin 31.0 pg (28.0-32.0); Mean Corpuscular Volume 92.1 fL (80.0-100.0); Nucleated Red Blood Cells % 0.0 %
[2024-12-21] MEDS: CEFEPIME 1GM/50ML 50 ML IV SCH (06:00)
[2024-12-21] MEDS: VANCOMYCIN 1GM/250ML KIT 250 ML IV ONE (10:06)
[2024-12-21 13:46] LABS: Urine Protein, UAD Negative (Negative)
[2024-12-21 13:58] LABS: Amphetamine Screen, Urine Neg (NEGATIVE); Barbiturate Scree,Urine Neg (NEGATIVE); Benzodiazephine Screen, Urine Neg (NEGATIVE); Cocaine Screen, Urine Neg (NEGATIVE); Opiate Scree,Urine Neg (NEGATIVE); Phencyclidine Screen, Urine Neg (NEGATIVE)
[2024-12-21 13:59] LABS: Cannabinoid Screen, Urine Neg (NEGATIVE)
[2024-12-21 16:09] LABS: COVID19 ANTIGEN SOFIA FIA NEGATIVE (NEGATIVE)
[2024-12-21] MEDS: IBUPROFEN 600 MG TAB PO PRN (20:53)
[2024-12-21 21:00] VITALS: BP 113/49; PULSE 60; RESP 18; TEMP 98.4; O2SAT 100
[2024-12-21 23:00] VITALS: BP 113/49; PULSE 60; RESP 18; TEMP 98.4; O2SAT 100
[2024-12-22 01:00] VITALS: BP 97/61; PULSE 80; RESP 18; TEMP 96.9; O2SAT 96
[2024-12-22] MEDS: CEFEPIME 1GM/50ML 50 ML IV SCH (02:00)
[2024-12-22 05:00] VITALS: BP 109/70; PULSE 67; RESP 17; TEMP 97.9; O2SAT 98
[2024-12-22 06:20] LABS: Hematocrit 33.2 % (36.0-46.0); Hemoglobin 11.5 g/dL (12.2-16.2); Mean Corpuscular Hemoglobin 32.0 pg (28.0-32.0); Mean Corpuscular Volume 92.4 fL (80.0-100.0); Nucleated Red Blood Cells % 0.0 %
[2024-12-22 06:35] LABS: Alanine Aminotransferase 22 U/L (7-40); Albumin 3.6 g/dL (3.2-4.8); Alkaline Phosphatase 79 U/L (46-116); Anion Gap 7 (5-15); BUN/Creatinine Ratio 8.0 (10.0-20.0); Carbon Dioxide 25 mmol/L (20-31); Chloride 106 mmol/L (98-107); Potassium 3.8 mmol/L (3.5-5.1); Sodium 138 mmol/L (136-145); Total Protein 6.1 g/dL (5.7-8.2)
[2024-12-22 06:36] LABS: Bilirubin, Total 0.4 mg/dL (0.2-1.0); Blood Urea Nitrogen 6 mg/dL (9-23); Calcium 8.5 mg/dL (8.7-10.4); Glucose 160 mg/dL (74-106)
[2024-12-22 08:00] VITALS: PULSE 59; RESP 16; O2SAT 98
[2024-12-22 09:01] VITALS: BP 115/61; PULSE 59; RESP 16; TEMP 98; O2SAT 98
[2024-12-22] MEDS ORDERED: LEVO500T91 PO (11:41)
--- NOTE | 2024-12-22 11:42 | DVHDS2 ---
Discharge Summary Date of Admission Dec 21, 2024 at 03:51 Date of Discharge: Dec 22, 2024 Admitting Diagnosis # sepsis likely due to upper respiratory tract infection # rule out COVID/influenza # diabetes type 2 # morbid obesity Labs/Diagnostic Data: Laboratory Results Test 12/22/24 09:40 12/22/24 04:55 12/21/24 16:07 12/21/24 13:24 Vancomycin Level Trough 14.9 ug/mL (5-10) White Blood Count 8.0 10^3/uL (4.4-10.8) Red Blood Count 3.60 10^6/uL (4.0-5.20) Hemoglobin 11.5 g/dL (12.2-16.2) Hematocrit 33.2 % (36.0-46.0) Mean Corpuscular Volume 92.4 fL (80.0-100.0) Mean Corpuscular Hemoglobin 32.0 pg (28.0-32.0) Mean Corpuscular Hemoglobin Concent 34.6 g/dL (32.0-36.0) Red Cell Distribution Width 13.6 % (11.8-14.3) Platelet Count 195 10^3/uL (140-450) Mean Platelet Volume 8.9 fL (6.9-10.8) Neutrophils (%) (Auto) 62.9 % (37.0-80.0) Lymphocytes (%) (Auto) 25.5 % (10.0-50.0) Monocytes (%) (Auto) 9.4 % (0.0-12.0) Eosinophils (%) (Auto) 1.9 % (0.0-7.0) Basophils (%) (Auto) 0.3 % (0.0-2.0) Neutrophils # (Auto) 5.1 10 ^3/uL (1.6-8.6) Lymphocytes # (Auto) 2.1 10 ^3/uL (0.4-5.4) Monocytes # (Auto) 0.8 10 ^3/uL (0-1.3) Eosinophils # (Auto) 0.2 10 ^3/uL (0-0.8) Basophils # (Auto) 0 10 ^3/uL (0-0.2) Nucleated Red Blood Cells 0.0 % Sodium Level 138 mmol/L (136-145) Potassium Level 3.8 mmol/L (3.5-5.1) Chloride Level 106 mmol/L (98-107) Carbon Dioxide Level 25 mmol/L (20-31) Anion Gap 7 (5-15) Blood Urea Nitrogen 6 mg/dL (9-23) Creatinine 0.75 mg/dL (0.550-1.02) Glomerular Filtration Rate Calc 104 mL/min (>90) BUN/Creatinine Ratio 8.0 (10.0-20.0) Serum Glucose 160 mg/dL (74-106) Calcium Level 8.5 mg/dL (8.7-10.4) Total Bilirubin 0.4 mg/dL (0.2-1.0) Aspartate Amino Transferase (AST) 21 U/L (13-40) Alanine Aminotransferase (ALT) 22 U/L (7-40) Alkaline Phosphatase 79 U/L (46-116) Total Protein 6.1 g/dL (5.7-8.2) Albumin 3.6 g/dL (3.2-4.8) Influenza Type A Antigen Negative (Negative) Influenza Type B Antigen Negative (Negative) SARS-CoV-2 Antigen (Rapid) Negative (NEGATIVE) Urine Color Yellow (Yellow) Urine Clarity Turbid (Clear) Urine pH 5.5 (5.0-9.0) Urine Specific [place] 1.020 (1.001-1.035) Urine Protein Negative (Negative) Urine Ketones 1+ (Negative) Urine Blood 1+ /uL (Negative) Urine Nitrite Negative (Negative) Urine Bilirubin Negative (Negative) Urine Urobilinogen Normal mg/dL (Negative) Urine Leukocyte Esterase Negative /uL (Negative) Urine RBC 12 /hpf (0 - 4) Urine Microscopic WBC 4 /HPF (0-5) Urine Squamous Epithelial Cells Few /hpf (<5) Urine Bacteria None seen /hpf (None Seen) Urine Mucus Few (None Seen) Urine Glucose Normal mg/dL (Normal) Urine Opiates Screen Neg (NEGATIVE) Urine Fentanyl Screen Neg (NEGATIVE) Urine Barbiturates Screen Neg (NEGATIVE) Urine Phencyclidine Screen Neg (NEGATIVE) Urine Amphetamines Screen Neg (NEGATIVE) Urine Benzodiazepines Screen Neg (NEGATIVE) Urine Cocaine Screen Neg (NEGATIVE) Urine Cannabinoids Screen Neg (NEGATIVE) Test 12/21/24 04:10 12/20/24 22:55 Prothrombin Time 10.9 sec (9.3-11.8) Prothrombin Time INR 1.03 (0.9-1.15) D-Dimer, Quantitative 0.51 mg/L FEU (0.0-0.49) Hemoglobin A1c 6.7 % A1C (<5.7) Lactic Acid Level 1.0 mmol/L (0.4-2.0) B-Type Natriuretic Peptide 8.50 pg/mL (0-100) Activated Partial Thromboplast Time 24.8 SEC (24.5-34.5) Thyroid Stimulating Hormone (TSH) 1.36 uIU/mL (0.55-4.78) Other Laboratory Tests 12/22/24 04:55 Brief Hx & Hospital Course: This is a 39 years old female with no significant past medical history come to emergency department because generalized weakness, shortness for breath, chills, body pain and productive cough with clear sputum, flu-like symptoms since November 30. The patient has nasal congestion, bilateral ear pain. The patient went to [facility] and was tests for influenza and COVID. It was negative. The patient took some medication but did not help. She said in the past she had multiple COVID infection. On arrival her temperature was 102.6. Patient was tachycardic. The patient was given IV fluid. Tylenol as needed for fever and IV antibiotic Rocephin and Zithromax. Today the patient feels much better. No nausea and vomiting. No fever or chill. Her WBC back to normal. Herself throat improved. Her culture did not show any abnormality. Her x-ray was clear. I am going to discharge her home. Empirically put her on oral antibiotic with Levaquin 500 mg daily for seven days. Advised her to follow up with primary care physician 1-2 weeks. Activity as tolerated. Diet per home diet. Physical exam: HEENT: Normocephalic atraumatic pupils equal react to light and accommodation. Extraocular muscles intact, conjunctiva pink, oropharynx moist, no thrush, no exudate. Lymphatic: No lymphadenopathy Cardiovascular exam: S1, S2 was heard. No murmurs, rubs, gallops Lung: Clear on auscultation bilaterally, no wheeze, rale, rhonchi. GI: Abdominal soft, nondistended, nontenderness, positive bowel sounds. Extremity: No crepitus, cyanosis, edema. Pedal pulses present bilateral. Full range of motion. Skin: Normal turgor, no rash. Psych: Alert, oriented x3. Neurology: No focal deficits, cranial nerve II to XII grossly intact. This medical document was created using an electronic medical record system with [employer] computerized dictation system. Although this document has been carefully reviewed, there may still be some phonetic and typographical errors. These areas are purely typographical due to imperfections of the software programs, and do not reflect any compromise in the patient's medical care. Condition at Discharge: Stable Final Diagnosis/Problems List # Upper respiratory tract infection # rule out COVID/influenza #SIRS due to URI # diabetes type 2 # morbid obesity Discharge Disposition: Home Discharge Instruct/Medications Diet: Regular Activity: No Restrictions, As Tolerated Follow Up/Referral: pcp 1-2 weeks Medications: Levaquin 500mg daily x 7 days Scheduled Acetaminophen (Acetaminophen), 500 MG PO QIDP Ascorbic Acid (Vitamin C Tablet), 1 TAB PO DAILY Benzonatate (Benzonatate), 1 CAP PO TID Cholecalciferol (Vitamin D3), 1 TAB PO DAILY, (Reported) Ferrous Sulfate (Ferrous Sulfate), 1 TAB PO DAILY Fexofenadine Hydrochloride (Laury Allergy), 60 MG PO DAILY, (Reported) Levofloxacin Hemihydrate (Levaquin 500 Mg), 1 TAB PO DAILY Multiple Vitamins W/ Minerals (Multivitamin Women), 1 TAB PO DAILY, (Reported) Omeprazole (Omeprazole), 20 MG PO DAILY Phenazopyridine HCl (Phenazopyridine Hydrochlo), 200 MG PO TID Vit W/ Ferrous Fumara ( One Daily), 1 TAB PO DAILY, (Reported) Sulfamethoxazole W/Trimethopri (Bactrim Ds Tablet), 1 TAB PO BID Sulfamethoxazole W/Trimethopri (Bactrim Ds Tablet), 1 TAB PO BID Scheduled PRN Acetaminophen (Acetaminophen), 650 MG PO Q6HP PRN Albuterol Sulfate (Ventolin Mdi), 1-2 PUFF IN Q6HR PRN for SHORTNESS OF BREATH, (Reported) Docusate Sodium (Docusate Sodium), 100 MG PO HS PRN Ibuprofen (Ibuprofen), 400 MG PO Q4HR PRN for PAIN SCALE 1 THRU 6, (Reported) Ibuprofen Micronized (Motrin Tablet), 600 MG PO Q6HP PRN Ondansetron Odt 4MG Tab (Zofran Po), 4 MG PO Q6HP PRN Discharge Statement: "Patient was advised to return to the ER or call 911 if any headaches, dizziness, shortness of breath, chest pain, abdominal pain, bleeding, fevers, or worsening of medical condition. Patient was counseled about treatment plan, medications, possible side effects, patientverbalized understanding. All questions were answered to the best of my ability. This discharge took greater then 30 minutes in planning, reviewing documentation, counseling the patient, and discussing with other team members." ASSESSMENT ASSESSMENT Assessment Upper resp. infection Date of Service: Dec 22, 2024 Billing Provider: PARISH CROSS MD Common Visit Codes: [id number] DISCH DAY >30min PARISH CROSS MD Dec 22, 2024 11:42
[2024-12-22 13:05] VITALS: BP 110/61; PULSE 75; RESP 16; TEMP 98.3; O2SAT 96
[2024-12-23 10:58] LABS: Hepatitis B Surface Antigen Negative (Negative); Hepatitis C Antibody Negative (Negative)
== END 2024-12-22 16:25 | disposition home or self-care (01) | DRG 872 ==
LOC: ER 22:20 → OVERFLOW 12-21 03:51 → EAST 12-21 21:10
PROVIDERS: ADMIT Internal Medicine; ATTEND Internal Medicine
DX: A41.9 Sepsis, unspecified organism (principal); Z68.41 Body mass index [BMI] 40.0-44.9, adult; E66.01 Morbid (severe) obesity due to excess calories; Z20.822 Contact with and (suspected) exposure to COVID-19; J06.9 Acute upper respiratory infection, unspecified; K21.9 Gastro-esophageal reflux disease without esophagitis; E11.9 Type 2 diabetes mellitus without complications; Z79.1 Long term (current) use of non-steroidal anti-inflammatories (NSAID); Z79.899 Other long term (current) drug therapy; Z90.49 Acquired absence of other specified parts of digestive tract; Z86.16 Personal history of COVID-19
CPT/HCPCS: 36415; 71045; 80053; 80202; 80307; 81001; 83036; 83605; 83880; 84443; 85025; 85379; 85610; 85730; 86803; 87040; 87070; 87205; 87340; 87426; 87804; 96361; 96365; 96366; 99291; G0378; J2470

== ENCOUNTER 2025-02-24 10:36 | Outpatient (CLI) | payer OTHER ==
[~2025-02-24 10:36] MED LIST changes: +LEVO500T91 PO
[2025-02-24 11:05] LABS: Hematocrit 38.8 % (36.0-46.0); Hemoglobin 13.2 g/dL (12.2-16.2); Mean Corpuscular Hemoglobin 31.4 pg (28.0-32.0); Mean Corpuscular Volume 91.9 fL (80.0-100.0); Nucleated Red Blood Cells % 0.1 %
[2025-02-24 11:38] LABS: Alanine Aminotransferase 27 U/L (7-40); Albumin 4.4 g/dL (3.2-4.8); Alkaline Phosphatase 103 U/L (46-116); Anion Gap 9 (5-15); BUN/Creatinine Ratio 18.4 (10.0-20.0); Bilirubin, Total 0.4 mg/dL (0.2-1.0); Blood Urea Nitrogen 14 mg/dL (9-23); Calcium 9.3 mg/dL (8.7-10.4); Carbon Dioxide 27 mmol/L (20-31); Chloride 105 mmol/L (98-107); Potassium 4.2 mmol/L (3.5-5.1); Sodium 141 mmol/L (136-145); Total Protein 7.4 g/dL (5.7-8.2)
[2025-02-24 11:40] LABS: Thyroid Stimulating Hormone 1.9 uIU/mL (0.55-4.78)
[2025-02-24 11:41] LABS: Beta HCG, Quantitative 0.7 mIU/mL (1.5-4.2); Glucose 119 mg/dL (74-106)
[2025-02-24 12:56] LABS: Follicle Stimulating Hormone 13.1 IU/L (SEE BELOW); Free T4 (Free Thyroxine) 1.18 ng/dL (0.89-1.76)
== END 2025-02-24 17:00 | disposition home or self-care (01) ==
LOC: LAB 10:36
DX: N93.1 Pre-pubertal vaginal bleeding (principal); Z79.899 Other long term (current) drug therapy
CPT/HCPCS: 36415; 80053; 82670; 83001; 83002; 83036; 83525; 84146; 84270; 84402; 84403; 84439; 84443; 84702; 85025

== ENCOUNTER 2025-03-08 13:28 | Emergency (ER) | payer OTHER ==
[~2025-03-08] VITALS: Ht 165.1 cm; Wt 120.0 kg
[2025-03-08 14:40] LABS: Hematocrit 40.7 % (36.0-46.0); Hemoglobin 13.8 g/dL (12.2-16.2); Mean Corpuscular Hemoglobin 31.4 pg (28.0-32.0); Mean Corpuscular Volume 92.3 fL (80.0-100.0); Nucleated Red Blood Cells % 0.0 %
[2025-03-08 14:46] LABS: Chloride 103 mmol/L (98-107); Potassium 4.1 mmol/L (3.5-5.1); Sodium 139 mmol/L (136-145)
[2025-03-08 14:47] LABS: Anion Gap 8 (5-15); Calcium 8.9 mg/dL (8.7-10.4); Carbon Dioxide 28 mmol/L (20-31)
--- NOTE | 2025-03-08 14:50 | ED.PDOC ---
GI ASSESSMENT HPI Comments A 40 YEAR OLD FEMALE PRESENTS TO THE ED WITH COMPLAINT OF ABDOMINAL PAIN. PATIENT HAS RIGHT MIDDLE ABDOMINAL PAIN SINCE EARLIER THIS A.M.. PATIENT STATES THE PAIN IS CONSTANT NONRADIATING WITH NO ASSOCIATED EXACERBATING OR RELIEVING FACTORS. PATIENT OTHERWISE HAS A ASSOCIATED BODY ACHES AND GENERALIZED FATIGUE BUT OTHERWISE DENIES ANY OTHER SYMPTOMS. PATIENT LAST MENSTRUAL PERIOD IS ON 02/21/2025. PATIENT DENIES FEVER, CHILLS, SHORTNESS OF BREATH, CHEST PAIN, NAUSEA, VOMITING, HEADACHE, OR OTHER COMPLAINTS. NO OTHER SYMPTOMS OR MODIFYING FACTORS AT THIS TIME. PATIENT IS ALERT, ORIENTED X 4, AND HAS STEADY GAIT. Chief Complaint: Abdominal Pain Time Seen by MD: 14:48 Primary Care Provider: LATISHA VUONG Reviewed Notes: Nurses Notes, Medications, Allergies Allergies: Coded Allergies: Sammy Aponte (Verified Allergy, Intermediate, 02/17/23) Home Meds Active Scripts Levofloxacin Hemihydrate (LEVAQUIN 500 MG) 500 Mg Tab, 1 TAB PO DAILY, #7 TAB Prov:PARISH CROSS MD 12/22/24 Sulfamethoxazole W/Trimethopri (Bactrim Ds Tablet) 1 Tab Tb, 1 TAB PO BID for 5 Days, #10 TAB Prov:GABRIELLA JIM DO 07/10/24 Phenazopyridine HCl (Phenazopyridine Hydrochlo) 200 Mg Tab, 200 MG PO TID, #6 TAB Prov:FARRUKH MAY 06/30/24 Sulfamethoxazole W/Trimethopri (Bactrim Ds Tablet) 1 Tab Tb, 1 TAB PO BID for 10 Days, #20 TAB Prov:FARRUKH MAY 06/30/24 Ondansetron Odt 4MG Tab (ZOFRAN PO) 4 Mg Tb, 4 MG PO Q6HP PRN, #20 TAB ODT TAB-DISSOLVE IN MOUTH, THEN SWALLOW Prov:CHEO EPPS PAC 10/23/23 Benzonatate (Benzonatate) 100 Mg Cap, 1 CAP PO TID, #20 CAP Prov:CHEO EPPS PAC 10/23/23 Omeprazole (Omeprazole) 20 Mg Tab, 20 MG PO DAILY for 21 Days, #21 TAB Prov:CHEO EPPS PAC 10/23/23 Ascorbic Acid (VITAMIN C TABLET) 500 Mg Tb, 1 TAB PO DAILY, #30 TAB 3 Refills take with iron pill Prov:[facility] 11/29/22 Ferrous Sulfate (FERROUS SULFATE) 325 Mg Tb, 1 TAB PO DAILY, #30 TAB 3 Refills Prov:[facility] 11/29/22 Ibuprofen Micronized (MOTRIN TABLET) 600 Mg Tb, 600 MG PO Q6HP PRN for 15 Days, #60 TAB Prov:[facility] 11/28/22 Docusate Sodium (Docusate Sodium) 100 Mg Cap, 100 MG PO HS PRN for 30 Days, #30 CAP 1 Refill Prov:[facility] 11/28/22 Acetaminophen (Acetaminophen) 325 Mg Tab, 650 MG PO Q6HP PRN for 10 Days, #80 TAB Prov:[facility] 11/28/22 Acetaminophen (Acetaminophen) 500 Mg Tab, 500 MG PO QIDP, #30 TAB 0 Refills Prov:RUBIN RUSSELL 04/01/22 Reported Medications Vit W/ Ferrous Fumara ( One Daily) Daily Tab, 1 TAB PO DAILY, #90 TAB 3 Refills 09/13/22 Multiple Vitamins W/ Minerals (Multivitamin Women) 1 Tab Tab, 1 TAB PO DAILY for SUPPLEMENT 01/08/22 Cholecalciferol (VITAMIN D3) 2,000 Unit Tab, 1 TAB PO DAILY for SUPPLEMENT 01/08/22 Ibuprofen (Ibuprofen) 400 Mg Tab, 400 MG PO Q4HR PRN for PAIN SCALE 1 THRU 6 01/08/22 Albuterol Sulfate (VENTOLIN MDI) 90 Mcg Ih, 1-2 PUFF IN Q6HR PRN for SHORTNESS OF BREATH 01/08/22 Fexofenadine Hydrochloride (RONAL ALLERGY) 60 Mg Tab, 60 MG PO DAILY for ALLERGIES 01/08/22 Information Source: Patient Mode of Arrival: Ambulatory Brought in by: SELF Timing: Hours Duration: Since onset Prehospital treatment: None Quality: Aching Vomitus: None Stool: Normal Severity: Moderate Recent: None Recent Hx of: None Pain Location: RUQ, RLQ Modifying Factors: Nothing Associated sign and symptoms: Abdominal Pain Past Medical History PAST MEDICAL HISTORY: GERD, Thyroid, UTI'S Surgical History: Cholecystectomy 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 Family History Family History: Reviewed,noncontributory to illness Social History Smoker: Non-Smoker Alcohol: Denies ETOH Use Drugs: Denies Drug Use Lives In: Home Constitutional: reports: fatigue, weakness; denies: chills, diaphoresis, fever, malaise, sweats, others EENTM: denies: blurred vision, double vision, ear bleeding, ear discharge, ear drainage, ear pain, ear ringing, eye pain, eye redness, hearing loss, mouth pain, mouth swelling, nasal discharge, nose bleeding, nose congestion, nose pain, photophobia, tearing, throat pain, throat swelling, voice changes, others Respiratory: denies: cough, hemoptysis, orthopnea, SOB at rest, shortness of breath, SOB with excertion, stridor, wheezing, others Cardiovascular: denies: chest pain, dizzy spells, diaphoresis, Dyspnea on exertion, edema, irregular heart beat, left arm pain, lightheadedness, palpitations, PND, syncope, others Gastrointestinal: reports: abdominal pain; denies: abdomen distended, blood streaked bowels, constipated, diarrhea, dysphagia, difficulty swallowing, hematemesis, melena, nausea, poor appetite, poor fluid intake, rectal bleeding, rectal pain, vomiting, others Genitourinary: denies: abnormal vagina bleeding, burning, dyspareunia, dysuria, flank pain, frequency, hematuria, incontinence, pain, , vagina discharge, urgency, others Neurological: denies: dizziness, fainting, headache, left sided numbness, left sided weakness, numbness, paresthesia, pre-existing deficit, right sided numbness, right sided weakness, seizure, speech problems, tingling, tremors, weakness, others Musculoskeletal: denies: back pain, gout, joint pain, joint swelling, muscle pain, muscle stiffness, neck pain, others Integumetry: denies: bruises, change in color, change in hair/nails, dryness, laceration, lesions, lumps, rash, wounds, others Allergic/Immunocompromised: denies: Difficulty Healing, Frequent Infections, Hives, Itching, others Hematologic/Lymphatic: denies: anemia, blood clots, easy bleeding, easy bruising, swollen glands, others Endocrine: denies: excessive hunger, excessive sweating, excessive thirst, excessive urination, flushing, intolerance to cold, intolerance to heat, unexplained weight gain, unexplained weight loss, others Psychiatric: denies: anxiety, bipolar disorder, depression, hopeless, panic disorder, schizophrenia, sleepless, suicidal, others All Other Systems: Reviewed and Negative Physical Exam General Appearance: No Apparent Distress, Obese HEENT: Normal ENT Inspection, PERRL/EOMI, Pharynx Normal, TMs Normal Neck: Full Range of Motion, Non-Tender, Normal, Normal Inspection Respiratory: Chest Non-Tender, Lungs Clear, No Accessory Muscle Use, No Respiratory Distress, Normal Breath Sounds Cardiovascular: No Edema, No JVD, No Murmur, No Gallop, Normal Peripheral Pulses, Regular Rate/Rhythm Breast Exam: Deferred Gastrointestinal: No Organomegaly, No Pulsatile Mass, Normal Bowel Sounds, Soft, Tenderness (RIGHT MIDDLE ABD, NO GUARDING AND REBOUND TENDERNESS. ) Genitalia: Deferred Pelvic: Deferred Rectal: Deferred Extremities: No calf tenderness, Normal capillary refill, Normal inspection, Normal range of motion, Non-tender, No pedal edema Musculoskeletal : Apperance: Normal Neurologic: Alert, catalogue clerk II-XII nml as Tested, No Motor Deficits, Normal Affect, Normal Mood, No Sensory Deficits Cerebellar Function: Normal Reflexes: Normal Skin: Dry, Normal Color, Warm Peripheral Pulses: 2+ carotid (R), 2+ carotid (L) Lymphatic: No Adenopathy Was a procedure done? Was a procedure done?: No GI differential Dx Differential Diagnosis: Cholangitis, Cholecystitis, Constipation, Diverticular disease, Gastritis/PUD, Gastroenteritis, Inflammatory BD, Pancreatitis, UTI, Dehydration, Food Poisoning, Bacterial, Viral, Stress Ulcer, Kidney Stone X-Ray, Labs, Meds, VS Vital Signs Date Time Temp Pulse Resp B/P (MAP) Pulse Ox O2 Delivery O2 Flow Rate FiO2 03/08/25 13:30 97.9 103 15 129/83 98 97.9 Lab Test 03/08/25 14:45 03/08/25 14:21 Range/Units Urine Color Yellow Yellow Urine Clarity Turbid H Clear Urine pH 6.0 5.0-9.0 Urine Specific [place] 1.029 1.001-1.035 Urine Protein Trace H Negative Urine Ketones Trace Negative Urine Blood Trace H Negative /uL Urine Nitrite Negative Negative Urine Bilirubin Negative Negative Urine Urobilinogen Normal Negative mg/dL Urine Leukocyte Esterase Trace Negative /uL Urine RBC 6 0 - 4 /hpf Urine Microscopic WBC 3 0-5 /HPF Urine Squamous Epithelial Cells Mod <5 /hpf Urine Bacteria Few H None Seen /hpf Urine Hyaline Casts Few 0 - 2 /lpf Urine Mucus Few None Seen Urine Glucose Normal Normal mg/dL White Blood Count 7.6 4.4-10.8 10^3/uL Red Blood Count 4.41 4.0-5.20 10^6/uL Hemoglobin 13.8 12.2-16.2 g/dL Hematocrit 40.7 36.0-46.0 % Mean Corpuscular Volume 92.3 80.0-100.0 fL Mean Corpuscular Hemoglobin 31.4 28.0-32.0 pg Mean Corpuscular Hemoglobin Concent 34.0 32.0-36.0 g/dL Red Cell Distribution Width 13.4 11.8-14.3 % Platelet Count 223 140-450 10^3/uL Mean Platelet Volume 8.3 6.9-10.8 fL Neutrophils (%) (Auto) 84.2 H 37.0-80.0 % Lymphocytes (%) (Auto) 10.2 10.0-50.0 % Monocytes (%) (Auto) 4.8 0.0-12.0 % Eosinophils (%) (Auto) 0.6 0.0-7.0 % Basophils (%) (Auto) 0.2 0.0-2.0 % Neutrophils # (Auto) 6.4 1.6-8.6 10 ^3/uL Lymphocytes # (Auto) 0.8 0.4-5.4 10 ^3/uL Monocytes # (Auto) 0.4 0-1.3 10 ^3/uL Eosinophils # (Auto) 0 0-0.8 10 ^3/uL Basophils # (Auto) 0 0-0.2 10 ^3/uL Nucleated Red Blood Cells 0.0 % Sodium Level 139 136-145 mmol/L Potassium Level 4.1 3.5-5.1 mmol/L Chloride Level 103 98-107 mmol/L Carbon Dioxide Level 28 20-31 mmol/L Anion Gap 8 5-15 Blood Urea Nitrogen 13 9-23 mg/dL Creatinine 0.88 0.550-1.02 mg/dL Glomerular Filtration Rate Calc 85 >90 mL/min BUN/Creatinine Ratio 14.8 10.0-20.0 Serum Glucose 137 H 74-106 mg/dL Calcium Level 8.9 8.7-10.4 mg/dL PATIENT: JAREK RECINOST: [id number]: [id number] : 1985 LOC: ER ROOM / BED: / AGE / SEX: 40 / F ADM STATUS: REG ER SERVICE [id number] ORDERING PHYSICIAN: FARRUKH MAY PROCEDURE(s): ABPL - CT AB PEL WO CON-NO ORAL OR IV REASON: RIGHT MIDDLE ABD PAIN ORDER NUMBER(s): [id number], ACCESSION NUMBER(s): [id number] Exam: CT CT AB PEL WO CON-NO ORAL OR IV History: RIGHT MIDDLE ABD PAIN Comparison Study: [facility] on DOS: 09/30/21, CT ABD PELVIS WO CONTRAST on DOS: 01/31/21, CT ABD PELVIS WO CONTRAST on DOS: 12/15/19 Technique: Multidetector spiral CT of the abdomen was performed from lung bases to pubic symphysis. Imaging was performed without IV contrast. Axial, coronal and sagittal multiplanar reformats were obtained from the axial data set by the technologist. Radiation Dose : 1. Abdomen/Pelvis: CTDIvol 22.04 mGy, DLP 1253.42 mGy*cm. Findings: Evaluation of solid organs is limited due to lack of intravenous contrast use. Lung Bases: No acute or significant lung base finding. Normal heart size. No pleural or pericardial effusion. Liver: The liver is normal in size. No focal lesions. Gallbladder and Biliary Tree: Gallbladder is surgically absent. Spleen: Unremarkable Pancreas: The pancreas is grossly normal in appearance. Adrenal Glands: Unremarkable Kidneys: Kidneys are grossly normal without calculi or hydronephrosis. Bladder: Grossly unremarkable for degree of distention. Bowel: The stomach is grossly normal in appearance. Small bowel and colon are normal in caliber and distribution. Normal appendix is visualized in the right lower quadrant without findings of appendicitis. Ascites: Absent Lymphadenopathy: No mesenteric, retroperitoneal or periportal lymphadenopathy. Abdominal Wall and Mesentery: Unremarkable. Vasculature: The visualized abdominal aorta is normal in size and caliber. Evaluation of abdominal and pelvic vessels is limited due to lack of intravenous contrast. Pelvic Organs: Unremarkable Musculoskeletal: No aggressive focal bony lesions, acute fractures or dislocation. IMPRESSION: No acute abdominal or pelvic findings. Radiation optimization: All CT scans at this facility use at least one of these dose optimization techniques: automated exposure control mA and/or kV adjustment per patient size (includes targeted exams where dose is matched to clinical indication) or iterative reconstruction. ATED BY: ISAIAH CHUA MD DICTATED DATE/TIME: 03/08/251554 SIGNED BY: ISAIAH CHUA MD SIGNED DATE/TIME: 03/08/251554 CC: X-Ray, Labs, Meds, VS Comment COURSE: EXTERNAL MEDICAL RECORDS REVIEWED: [NONE] INDEPENDENT HISTORIANS: [NONE] SOCIAL DETERMINANTS OF HEALTH: [NONE] LABS ORDERED: CBC, BMP, UA REVIEWED AND INTERPRETED RESULTS: NONE IMAGING ORDERED: NONE TREATMENTS ORDERED: CT ABDOMEN PELVIS NONCONTRAST. PT DECLINED PAIN MEDICATION. PROCEDURES PERFORMED: NONE CRITICAL CARE TIME: NONE I HAVE DISCUSSED THE PATIENT WITH THE ATTENDING PHYSICIAN DR. MAYA, AND HE AGREES WITH THE PATIENT'S PLAN OF CARE AND DISPOSITION. BASED ON HISTORY OF PRESENT ILLNESS, AND PHYSICAL EXAM, PATIENT WILL BE DISCHARGED HOME. SHARED DECISION MAKING: DISCUSSED WITH PATIENT THAT THEIR WORKUP WAS NORMAL. PATIENT INSTRUCTED TO FOLLOW UP WITH PRIMARY CARE PROVIDER IN 1-2 DAYS FOR RE- EVALUATION OF SYMPTOMS. PATIENT VERBALIZES UNDERSTANDING TO RETURN TO ED FOR NEW OR WORSENING SYMPTOMS OR IF FOLLOW UP WITH PCP CANNOT BE OBTAINED. PATIENT FEELS COMFORTABLE GOING HOME AT THIS TIME. ALL QUESTIONS ADDRESSED AT TIME OF DISCHARGE. Time of 1ST Reevaluation: 15:10 Reevaluation 1ST: Unchanged Patient Education/Counseling: Diagnosis, Treatment, Need For Follow Up Family Education/Counseling: Diagnosis, Treatment, No Family Present Medical Screening: No EMC Exist At This Time SEPSIS Sepsis Screen Date sepsis recognized/suspect: Mar 08, 2025 Time Sepsis recognized/suspect: 1332 Recent Procedure: No On Antibiotic Therapy: No Respiratory Rate >20: No Heart Rate >90: No Temp<36 C (96.8 F) or >38.3 C: No SBP <90 or MAP <65 mmHG: No New Acute Mental Status Change: No Is the patient on CPAP, BIPAP,: No Physician Orders Ct Ab Pel Wo Con-No Oral Or Iv (03/08/25 14:46) Vital Signs Date Time Temp Pulse Resp B/P (MAP) Pulse Ox O2 Delivery O2 Flow Rate FiO2 03/08/25 13:30 97.9 103 15 129/83 98 97.9 Laboratory Tests Test 03/08/25 14:21 White Blood Count 7.6 10^3/uL (4.4-10.8) Departure 1 Departure Time of Disposition: 16:17 Impression: Primary Impression: Abdominal pain of unknown cause Disposition: HOME / SELF CARE / HOMELESS Condition: Stable Additional Instructions: INSTRUCTIONS: FOLLOW-UP WITH PCP IN 1 TO 2 DAYS. TAKE MEDICATIONS PRESCRIBED. RETURN TO ED FOR ANY NEW OR WORSENING SYMPTOMS. Discharged With: Self Critical Care Note Critical Care Time?: No Stability Stability form required: No Heart Score Heart Score: Heart Score Response (Comments) Value History N/A 0 EKG N/A 0 Age N/A 0 Risk Factors N/A 0 Troponin N/A 0 Total 0 I personally scribed for FARRUKH MAY ([email or web address]) on 03/08/25 at 14:50. Electronically submitted by Paula Yi ([employer] I personally scribed for FARRUKH MAY ([email or web address]) on 03/08/25 at 16:11. Electronically submitted by Paula Yi ([employer] FARRUKH MAY Mar 08, 2025 14:50
[2025-03-08 14:52] LABS: BUN/Creatinine Ratio 14.8 (10.0-20.0); Blood Urea Nitrogen 13 mg/dL (9-23)
[2025-03-08 14:57] LABS: Glucose 137 mg/dL (74-106)
[2025-03-08 15:06] LABS: Urine Protein, UAD TRACE (Negative)
--- NOTE | 2025-03-08 15:57 | DVH ---
Exam: CT CT AB PEL WO CON-NO ORAL OR IV History: RIGHT MIDDLE ABD PAIN Comparison Study: [facility] on DOS: 09/30/21, CT ABD PELVIS WO CONTRAST on DOS: 01/31/21, CT ABD PELVIS WO CONTRAST on DOS: 12/15/19 Technique: Multidetector spiral CT of the abdomen was performed from lung bases to pubic symphysis. Imaging was performed without IV contrast. Axial, coronal and sagittal multiplanar reformats were obtained from the axial data set by the technologist. Radiation Dose : 1. Abdomen/Pelvis: CTDIvol 22.04 mGy, DLP 1253.42 mGy*cm. Findings: Evaluation of solid organs is limited due to lack of intravenous contrast use. Lung Bases: No acute or significant lung base finding. Normal heart size. No pleural or pericardial effusion. Liver: The liver is normal in size. No focal lesions. Gallbladder and Biliary Tree: Gallbladder is surgically absent. Spleen: Unremarkable Pancreas: The pancreas is grossly normal in appearance. Adrenal Glands: Unremarkable Kidneys: Kidneys are grossly normal without calculi or hydronephrosis. Bladder: Grossly unremarkable for degree of distention. Bowel: The stomach is grossly normal in appearance. Small bowel and colon are normal in caliber and distribution. Normal appendix is visualized in the right lower quadrant without findings of appendicitis. Ascites: Absent Lymphadenopathy: No mesenteric, retroperitoneal or periportal lymphadenopathy. Abdominal Wall and Mesentery: Unremarkable. Vasculature: The visualized abdominal aorta is normal in size and caliber. Evaluation of abdominal and pelvic vessels is limited due to lack of intravenous contrast. Pelvic Organs: Unremarkable Musculoskeletal: No aggressive focal bony lesions, acute fractures or dislocation. IMPRESSION: No acute abdominal or pelvic findings. Radiation optimization: All CT scans at this facility use at least one of these dose optimization techniques: automated exposure control mA and/or kV adjustment per patient size (includes targeted exams where dose is matched to clinical indication) or iterative reconstruction.
[2025-03-08 16:17] VITALS: BP 122/81; PULSE 100; RESP 16; TEMP 98.1; O2SAT 100
== END 2025-03-08 16:19 | disposition home or self-care (01) ==
LOC: ER 13:28
DX: R10.9 Unspecified abdominal pain (principal); K21.9 Gastro-esophageal reflux disease without esophagitis; Z90.49 Acquired absence of other specified parts of digestive tract; Z79.899 Other long term (current) drug therapy
CPT/HCPCS: 36415; 74176; 80048; 81001; 85025